=== PATIENT | female | born 1945 | race Caucasian/White ===

== ENCOUNTER → 2016-09-15 | Outpatient (REF) | payer OTHER, MEDICARE ==
[~2016-09-15] MED LIST: ACET1TAB17 PO; ASPI81TA85 PO; ATOR1TAB21 PO; CEFA2INJ IV; ECOT325T7 PO; FERR325T16 PO; FISH100049 PO; FLUZ1INJ IM; FOLI1TAB4 PO; LASI20TA PO; METO1TAB87 PO; MILKSUS5 PO; MULT1TAB18 PO; NORT25CA2 PO; OXYC1TAB23 PO; PHEN-312 PO; PHEN60TA9 PO; PHEN64.8 PO; POTA1TAB14 PO; RANI150C PO; SPIR25TA2 PO; TOPR25TA PO; VITA10006 PO; VITA500046 PO; [UNRECOGNIZED DRUG - CODE] ID
== END ==
LOC: M LAB REF 17:31
PROVIDERS: ATTEND Internal Medicine
DX: R31.21 Asymptomatic microscopic hematuria (principal)

== ENCOUNTER 2016-11-24 14:03 | Inpatient (IN) | payer MEDICARE, OTHER ==
[~2016-11-24] VITALS: Ht 167.6 cm; Wt 82.1 kg
[2016-11-24] MEDS ORDERED: ATOR1TAB21 PO (14:45)
[2016-11-24] MEDS ORDERED: VITA10006 PO (14:45)
[2016-11-24] MEDS ORDERED: VITA500046 PO (14:45)
[2016-11-24] MEDS ORDERED: MULT1TAB18 PO (14:45)
[2016-11-24] MEDS ORDERED: FISH100049 PO (14:45)
[2016-11-24] MEDS ORDERED: ECOT325T7 PO (14:45)
[2016-11-24] MEDS ORDERED: NORT25CA2 PO (14:45)
[2016-11-24] MEDS ORDERED: TOPR25TA PO (14:45)
[2016-11-24] MEDS ORDERED: PHEN64.8 PO (14:45)
[2016-11-24] MEDS ORDERED: ACETAMINOPHEN 325 MG TAB PO ONE (16:45)
[2016-11-24 17:29] LABS: ADD MANUAL DIFFER YES; ALBUMIN 3.1 GM/DL (3.2-5.2); ALBUMIN/GLOBULIN RATIO 0.72 (1.00-1.93); BILIRUBIN,DIRECT 0.1 MG/DL (0.0-0.2); BILIRUBIN,TOTAL 0.4 MG/DL (0.2-1.0); CALCIUM LEVEL 8.1 MG/DL (8.8-10.2); CREATININE FOR GFR 1.23 MG/DL (0.55-1.02); DIFF SLIDE NUMBER 289; MEAN CORPUSCULAR HEMOGLOBIN 32.7 pg (27.0-33.0); MEAN CORPUSCULAR HGB CONC 34.8 g/dl (32.0-36.5); PHENOBARBITAL LEVEL 19.9 UG/ML (15.0-40.0); POTASSIUM SERUM 3.2 MEQ/L (3.5-5.1); RED CELL DISTRIBUTION WIDTH 12.9 % (11.5-14.5); TOTAL PROTEIN 7.4 GM/DL (6.4-8.2); WHITE BLOOD COUNT 8.7 K/mm3 (4.0-10.0)
[2016-11-24 17:30] LABS: PLATELET COUNT, AUTOMATED 74 k/mm3 (150-450)
--- NOTE | 2016-11-24 17:38 | REP ---
Clinical: Fever. Technique: PA and lateral. Comparison: None. Findings: Mediastinum and cardiac silhouette are grossly normal. Lung liu demonstrate chronic-appearing interstitial changes. Superimposed left lower lobe atelectasis/early infiltrate cannot be excluded. No effusion. No pneumothorax. Skeletal structures intact. Impression: Cannot exclude trace left lower lobe atelectasis/early infiltrate. Signed by Constantino Bright MD 11/24/2016 05:30 P
--- NOTE | 2016-11-24 17:41 | REP ---
Clinical: Pain. Technique: AP, lateral, bilateral oblique views of the left wrist. Findings: Degenerative changes involving the first and second carpometacarpal joints. No acute fracture dislocation. No significant swelling. No subcutaneous emphysema or radiodense foreign body. Impression: Degenerative changes at the first and second carpometacarpal joints. Signed by Constantino Bright MD 11/24/2016 05:33 P
[2016-11-24] MEDS ORDERED: POTASSIUM CHLORIDE 10 MEQ SR TABLET PO ONE (17:45)
[2016-11-24 18:05] LABS: BANDS 3 % (< 11)
[2016-11-24 18:12] LABS: ERYTHROCYTE SEDIMENTATION RATE 30 mm/hr (0-30)
--- NOTE | 2016-11-24 18:17 | REP ---
Clinical: Fever. Comparison: Chest CT. Findings: Bibasilar and lingular atelectasis is appreciated along with small focal consolidation with air bronchograms involving the deep medial right lower lobe. No effusion. No pneumothorax. Tracheobronchial tree is patent. Mediastinum suggests mild cardiomegaly without pericardial effusion. Minimal atherosclerotic changes are appreciated. Thoracic aorta without aneurysm. Musculoskeletal structures demonstrate age-related degenerative changes. Limited evaluation of the upper abdomen demonstrates cholelithiasis as well as 9.5 cm left renal cyst. Impression: 1. Bibasilar atelectasis and small right lower lobe consolidation. 2. Chronic pulmonary parenchymal changes and mild cardiomegaly. 3. Upper abdomen demonstrates cholelithiasis and 9.5 cm left renal cyst. Signed by Constantino Bright MD 11/24/2016 06:08 P
[2016-11-24] MEDS ORDERED: NS 1,000 ML IV ONE (18:30)
--- NOTE | 2016-11-24 19:01 | REP ---
Clinical: Elevated liver function tests. Abdominal pain. Transaminitis. Technique: Real time carney scale ultrasound examination using curved array transducer. Findings: The liver is heterogeneous and demonstrates a somewhat mottled "starry jonathan" appearance which may reflect underlying pathology including hepatitis. No focal hepatic lesion identified. The gallbladder demonstrates diffuse cholelithiasis without obvious anterior gallbladder wall thickening or pericholecystic fluid although evaluation is limited due to shadowing. No evidence for extrahepatic biliary ductal dilatation and the common bile duct measures 4.5 mm diameter. The right kidney is normal in reniform shape and measures 10.3 x 3.9 x 5.2 cm with septated, complex upper pole cyst measuring 4.0 x 2.9 x 2.9 cm. No ascites. Impression: 1. Findings suggesting underlying hepatic parenchymal disease requires correlation. No focal hepatic lesion identified. 2. Cholelithiasis without definite evidence for acute cholecystitis. 3. Complex septated right renal cyst. Signed by Constantino Bright MD 11/24/2016 06:53 P
[2016-11-24] MEDS ORDERED: PIPERACILLIN/TAZOBACTAM SOD 3.375 GM in D5W MINI-BAG PLUS 50 ML IV ONE (19:15)
[2016-11-24] MEDS ORDERED: PHEN60TA9 PO (19:26)
[2016-11-24] MEDS: NS 1,000 ML IV SCH (19:43)
--- NOTE | 2016-11-24 20:12 | HPEPDOC ---
General Date of Admission 11/24/2016 at 8:10PM Chief Complaint The patient is a 71-year-old female Presented to the ER with complaints of fever , chills and body aches for 2 days. History of Present Illness Patient is a 71 year old female with a PMHx of AVM in the brain ( Operated on 1991, Stent placement in 2009), Seizure prophylaxis, HTN, DLP, Arthritis and Depression. Patient presented to the ER with complaints of fever, chills and body aches for 2 days. She was in [place] on Sunday when she began to experience the symptoms that morning. She denied any SOB, cough, chest pain, palpitations, nausea, vomiting or abdominal pain at that time. She noted that she had 1 loose stool (non-bloody, non-mucoid) and it had since resolved after taking a single dose of Imodium. She noted that the next day she boarded a flight to get to [place]. She has been experiencing weakness in ambulation and overall fatigue. She was wheeled off the flight. Her family had taken her home and then brought her into the hospital tonight because she was slurring her words and was very sleepy. She denied any recent procedures. Home Medications Scheduled (Ecotrin) 325 Mg Tab, 325 MG PO DAILY, (Reported) Atorvastatin Calcium (Atorvastatin Calcium) 20 Mg Tab, 20 MG PO DAILY, (Reported ) Metoprolol Succinate (Toprol Xl) 25 Mg Tab, 25 MG PO DAILY, (Reported) Nortriptyline HCl (Nortriptyline HCl) 25 Mg Cap, 25 MG PO DAILY, (Reported) Phenobarbital (Phenobarbital) 60 Mg Tab, 120 MG PO DAILY, (Reported) Allergies Coded Allergies: No Known Allergies (Unverified , 11/24/16) Past Medical History Medical History AVM in the brain (Operated on 1991, Stent placement in 2009), Seizure prophylaxis, HTN, DLP, Arthritis and Depression Surgical History 1991 AVM surgery 2009 Stent placement in R MCA of brain <5 years ago - Neck surgery for removal of possible cyst? 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 [employer] Review of Symptoms Other systems 10 point review of systems complete; negative otherwise stated in HPI Vital Signs - Vitals: BP 122/62, HR 95, RR 18, Sat 95%RA, Temp 98.8F - General: Lying in bed, No acute distress, Sleepy, AAOx3 - HEENT: NC, AT, PERRLA, EOMI - CVS: RRR, +S1S2, Possible systolic murmur - Lungs: Fair air entry bilaterally, + Crackles at right lung base - Abdomen: Soft, Non-distended, Non-tender, Hyperactive bowel sounds - Extremities: No lower extremity edema, No calf tenderness - Neuro: No focal motor or sensory deficit - Joint: Decreased ROM of L wrist and L knee 2/2 pain - Skin: No visible rashes Laboratory Data Labs 24H Laboratory Tests 2 11/24/16 16:09: Neutrophils 84H, Band Neutrophils 3, Lymphocytes (Manual) 8L, Monocytes (Manual ) 3, Atypical Lymphocytes 2, Platelet Estimate DECREASED, Red Blood Cell Morphology NORMAL, Erythrocyte Sedimentation Rate 30, Anion Gap 11, Glomerular Filtration Rate 46.0, Lactic Acid Level 1.8, Calcium Level 8.1L, Aspartate Amino Transf (AST/SGOT) 371H, Alanine Aminotransferase (ALT/SGPT) 212H, Alkaline Phosphatase 86, Total Bilirubin 0.4, Direct Bilirubin 0.1, C-Reactive Protein, Quantitative 23.20H, Total Protein 7.4, Albumin 3.1L, Albumin/Globulin Ratio 0.72L, Phenobarbital Level 19.9 11/24/16 16:54: Urine Appearance HAZY, Urine Color YELLOW, Urine pH 5.0, Urine Specific Letcher 1.017, Urine Protein 2+H, Urine Glucose (UA) NEGATIVE, Urine Ketones TRACEH, Urine Urobilinogen 0.2, Urine Bilirubin NEGATIVE, Urine Leukocyte Esterase NEGATIVE, Urine Blood 3+H, Urine Nitrite NEGATIVE, Urine WBC (Auto) 5H, Urine RBC (Auto) 3, Urine Hyaline Casts (Auto) 0, Urine Bacteria (Auto) 1+H, Urine Squamous Epithelial Cells 0, Urine Amorphous Sediment MODERATEH, Urine Mucus ( Auto) SMALL, Urine Sperm (Auto) CBC/BMP Laboratory Tests 11/24/16 16:09 Red Blood Count 4.74, Mean Corpuscular Volume 94.0, Mean Corpuscular Hemoglobin 32.7, Mean Corpuscular Hemoglobin Concent 34.8, Red Cell Distribution Width 12.9 Microbiology Microbiology 11/24/16 Blood Culture, Received Pending 11/24/16 Blood Culture, Received Pending 11/24/16 Influenza Virus Type A Antigen - Final, Complete 11/24/16 Influenza Virus Type B Antigen - Final, Complete 11/24/16 Urine Culture, Received Pending Plan / VTE VTE Prophylaxis Ordered?: Yes Plan Plan Fever / Chills likely 2/2 infection, source unclear; possibly pneumonia (CAP), possible joint infection (right knee vs. left wrist), possible hepatitis - Presented with fever, chills, fatigue, sleepiness, and joint pain / body aches - Physical reveals right lower lung field with crackles - No leukocytosis, No lactic acidosis - Elevation in liver enzymes (AST / ALT) - UA without definitive infection - CT Chest: bibasilar atelectasis, small RLL consolidation, cholelithiasis, 9.5cm left renal cyst - US Gallbladder: hepatic parenchymal disease, cholelithiasis, no acute cholecystitis, complex R renal cyst - Wrist XR: degenerative changes in 1st and 2nd CMC joint - Will f/u Blood cultures, Urine cultures, Hepatitis Panel - Will cover with broad spectrum antibiotics with Vancomycin and Zosyn - c/w IV fluid hydration with NS Transaminitis - Possibly 2/2 hepatitis - AST : ALT ratio of 1:1 - No abnormalities in Bilirubin or Alkaline phosphatase to indicate biliary pathology - US noted above - f/u Hepatitis panel Hyponatremia; likely hypotonic, hypovolemic - Possibly 2/2 dehydration - c/w IV fluid hydration for now Elevated Cr - Baseline unclear, no prior records - Will check urine osmolality and urine electrolytes - c/w IV fluid hydration Thrombocytopenia possibly 2/2 hepatitis - no evidence of bleeding at this time - will continue to monitor platelet count AVM in the brain - s/p Surgery on 1991 - s/p stent placement in 2009) - Currently on seizure prophylaxis; c/w Phenobarbital - c/w ASA HTN - Will hold metoprolol for now - Will likely need to restart within 24 hours DLP - c/w Atorvastatin Arthritis - c/w Tylenol PRN Depression - c/w Nortriptyline Gastrointestinal prophylaxis - Will start Protonix PO DVT prophylaxis - Will start SCDs (re: Thrombocytopenia) ERLINDA MCCLAIN MD Nov 24, 2016 20:12
[2016-11-24 21:00] LABS: OSMOLALITY SERUM 267 MOSM/KG (280-301)
[2016-11-24] MEDS ORDERED: VANCOMYCIN HCL 1,000 MG, VIAL MATE ADAPTER 1 EACH in D5W 250 ML IV ONE (21:00)
[2016-11-25] MEDS: PANTOPRAZOLE 40MG TAB (PROTONIX) PO SCH ×2 (02:01→20:37)
[2016-11-25] MEDS: PHENobarbital 30 MG TAB PO SCH ×2 (02:01→20:37)
[2016-11-25] MEDS: ASPIRIN ENTERIC 325 MG TAB PO SCH ×2 (02:02→21:51)
[2016-11-25] MEDS: ATORVASTATIN 20 MG TAB PO SCH ×2 (02:02→20:38)
[2016-11-25] MEDS: NORTRIPTYLINE 25 MG CAP PO SCH ×2 (02:02→21:51)
[2016-11-25 02:13] VITALS: BP 132/62
[2016-11-25] MEDS: ACETAMINOPHEN TAB 650MG DOSE (2X325MG) PO PRN (02:18)
[2016-11-25] MEDS ORDERED: METOPROLOL SUCC *XL* 25MG TAB (TopROL *XL*) PO ONE (02:30)
[2016-11-25 04:00] VITALS: BP 118/58
[2016-11-25] MEDS: PIPERACILLIN/TAZOBACTAM SOD 3.375 GM in D5W MINI-BAG PLUS 50 ML IV SCH ×3 (04:15→20:36)
[2016-11-25 07:15] LABS: BASO % 0.3 % (0.0-1.0); EOS % 0.3 % (0.0-3.0); LARGE UNSTAINED CELL # 0.2 K/mm3 (0.0-0.4); LARGE UNSTAINED CELL % 3.2 % (0.0-4.0); LYMPH # 0.4 K/mm3 (1.5-4.5); LYMPH % 6.1 % (24.0-44.0); MEAN CORPUSCULAR HGB CONC 35.5 g/dl (32.0-36.5); MEAN CORPUSCULAR VOLUME 93.1 fl (80.0-96.0); MONO # 0.3 K/mm3 (0.0-0.8); MONO % 4.3 % (0.0-5.0); NEUTROPHILS # 5.1 K/mm3 (1.8-7.7); RED CELL DISTRIBUTION WIDTH 12.6 % (11.5-14.5)
[2016-11-25 07:25] LABS: ALBUMIN 2.4 GM/DL (3.2-5.2); ALBUMIN/GLOBULIN RATIO 0.71 (1.00-1.93); BILIRUBIN,TOTAL 0.5 MG/DL (0.2-1.0); CALCIUM LEVEL 7.4 MG/DL (8.8-10.2); CREATININE FOR GFR 1.3 MG/DL (0.55-1.02); GLOMERULAR FILTRATION RATE 43.1 (>39); MAGNESIUM LEVEL 2.3 MG/DL (1.8-2.4); POTASSIUM SERUM 3.3 MEQ/L (3.5-5.1); TOTAL PROTEIN 5.8 GM/DL (6.4-8.2)
[2016-11-25 07:29] LABS: PLATELET COUNT, AUTOMATED 51 k/mm3 (150-450)
[2016-11-25 08:00] VITALS: BP 106/56
[2016-11-25] MEDS: NS 1,000 ML IV SCH ×2 (08:13→22:51)
[2016-11-25] MEDS: VANCOMYCIN HCL 750 MG, VIAL MATE ADAPTER 1 EACH in D5W 250 ML IV SCH ×2 (09:20→21:50)
--- NOTE | 2016-11-25 10:31 | PHACANCOPD ---
PHARMACY VANCOMYCIN DOSING Pt Demographics Demographics Patient Age:71 , Weight:77.900 , Gender: female Adjusted Body Weight Date: 11/25/16, Adjusted Body Weight: [NA] Kg Events Past 24 Hours Events Past 24 Hours: YES: Fever, NO: Dialysis, Diuretic Therapy, Change in CrCl, Elevation in WBC, Pending Diagnostics, Pending Procedures, Other Vancomycin Vancomycin indication: MRSA coverage Vancomycin Target Ranges: 15-20 mcg/ml Vancomycin Load Y/N: Yes Load Dose Date Time Vancomycin Load Dose: 1000mg Date: 11/24 Time: 23:00 Vancomycin Dose Date: 11/25/16. Current Vancomycin Dose: [750mg IV q12h @09] Intermittent Dosing?: No Labs Labs Item Value Date Time White Blood Count 8.7 K/mm3 11/24/16 1609 White Blood Count 6.0 K/mm3 11/25/16 0635 Band Neutrophils 3 % 11/24/16 1609 Creatinine 1.23 MG/DL H 11/24/16 1609 Creatinine 1.30 MG/DL H 11/25/16 0635 C-Reactive Protein, Quantitative 23.20 MG/DL H 11/24/16 1609 Vital Signs Label Value Date Time Patient Temperature 100.9 degrees F 11/25/16 0213 Temperature Source Temporal 11/25/16 0213 Patient Temperature 101.0 degrees F 11/24/16 1820 Temperature Source Oral 11/24/16 1820 Micro Microbiology 11/24/16 Blood Culture, Received Pending 11/24/16 Blood Culture - Preliminary, Resulted 11/25/16 Gastrointestinal Tract Panel (PCR) - Final, Complete 11/25/16 Stool Occult Blood (MAEVE) - Final, Complete 11/24/16 Influenza Virus Type A Antigen - Final, Complete 11/24/16 Influenza Virus Type B Antigen - Final, Complete 11/24/16 Urine Culture, Received Pending Creatinine Clearance Date:11/25/16. Creatinine Clearance: [40 ml/min]. Pending Labs Vanco trough scheduled 11/25 @08:00 before 4th dose Assessment and Plan Maintaining Current Dose?: No Reason for dose change: No Dose Change Pharmacist Note Pharmacist Note Date: 11/25/16. Pharmacist note: pt was admitted for fever/chills, unknown source of infection, possible CAP for which she was started on Zosyn and Vancomycin. Pt has no medical hx at our facility. I started her on vancomycin 1g last night to be followed with 750mg IV q12h this morning. Blood cultures 1/2 preliminary positive for G+ cocci in clusters. I have a trough scheduled before the 4th dose tomorrow morning. Piotr Alejandro.D. Nov 25, 2016 10:30
[2016-11-25 14:00] VITALS: BP 116/59
--- NOTE | 2016-11-25 18:58 | IPN ---
DATE: 11/25/2016 SUBJECTIVE: The patient is seen and examined in the room today. The patient stated that she has been having fever and chills with body aches for several days. Since admission, has resolved. The patient denies any recent sick contacts. The patient does complain about one loose stool prior to current hospitalization. Since admission, the patient also has some loose stool after the initiation of the antibiotic; however, the patient feels her symptoms are improving. OBJECTIVE: VITAL SIGNS: Temperature is 98.2, pulse is 84, respiratory rate 18, blood pressure 106/56, pulse oximetry is 95% on room air. GENERAL: No sign of acute distress. Alert and oriented times three. HEENT: Normocephalic, atraumatic. Extraocular muscles intact. CARDIOVASCULAR: Positive S1, S2. Regular rate. LUNGS: Some diminished breath sounds in the lower base. Positive fine crackles in the right lung base, otherwise I cannot appreciate any significant wheezes. ABDOMEN: Soft, nontender, nondistended. Bowel sounds present. EXTREMITIES: No edema. No sign of cyanosis. LABORATORY DATA: WBC is 6, hemoglobin is 13.1, hematocrit 37, platelet count is 51. Sodium is 130, potassium is 3.3, chloride is 97, carbon dioxide 23, BUN 20, creatinine 1.3, GFR is 43.1, fasting glucose is 137, calcium is 7.4, magnesium 2.3, total bilirubin 0.5, AST 333, ALT is 216, alkaline phosphatase is 76, total protein 5.8. ASSESSMENT AND PLAN: 1. Fever, chills with generalized body aches. CT imaging of the chest suggests that there is a small right lower lobe consolidation. Influenza is negative. Followup with respiratory panel. Currently, the patient is on vancomycin and Zosyn. Her general presentation may also suggest acute viral symptoms with elevated transaminitis. Hepatitis panel has been ordered. Results pending at this moment. 2. Transaminitis. Will try to rule out acute viral hepatitis. The patient is on atorvastatin therapy. 3. History of AV malformation in the brain, status post surgical repair in 1991 and stent placement for aneurysm in 2009. The patient is currently on phenobarbital for seizure prophylaxis. Continue aspirin. 4. Hypertension. Blood pressure medication has been on hold and the patient's blood pressure has been in the satisfactory range. We will continue to monitor. 5. Dyslipidemia. On atorvastatin. 6. Depression. On nortriptyline. 7. Deep vein thrombosis (DVT) prophylaxis. On thromboembolic compression stockings (TEDS) and sequential compression device (SCD).
[2016-11-25 22:00] VITALS: BP 124/67
[2016-11-26] MEDS: PIPERACILLIN/TAZOBACTAM SOD 3.375 GM in D5W MINI-BAG PLUS 50 ML IV SCH (04:00)
[2016-11-26 06:00] VITALS: BP 135/68
[2016-11-26 07:08] LABS: BASO % 0.1 % (0.0-1.0); EOS % 0.2 % (0.0-3.0); LARGE UNSTAINED CELL # 0.3 K/mm3 (0.0-0.4); LARGE UNSTAINED CELL % 4.1 % (0.0-4.0); LYMPH # 0.5 K/mm3 (1.5-4.5); LYMPH % 7.7 % (24.0-44.0); MEAN CORPUSCULAR HEMOGLOBIN 32.9 pg (27.0-33.0); MEAN CORPUSCULAR HGB CONC 34.8 g/dl (32.0-36.5); MEAN CORPUSCULAR VOLUME 94.5 fl (80.0-96.0); MONO # 0.3 K/mm3 (0.0-0.8); MONO % 5.5 % (0.0-5.0); NEUTROPHILS % 82.4 % (36.0-66.0); RED CELL DISTRIBUTION WIDTH 12.9 % (11.5-14.5); WHITE BLOOD COUNT 6.1 K/mm3 (4.0-10.0)
[2016-11-26 07:09] LABS: PLATELET COUNT, AUTOMATED 54 k/mm3 (150-450)
[2016-11-26 07:18] LABS: ALBUMIN/GLOBULIN RATIO 0.56 (1.00-1.93); BILIRUBIN,TOTAL 0.4 MG/DL (0.2-1.0); CALCIUM LEVEL 7.5 MG/DL (8.8-10.2); CREATININE FOR GFR 1.57 MG/DL (0.55-1.02); GLOMERULAR FILTRATION RATE 34.7 (>39); MAGNESIUM LEVEL 2.3 MG/DL (1.8-2.4); POTASSIUM SERUM 3.1 MEQ/L (3.5-5.1); TOTAL PROTEIN 5.6 GM/DL (6.4-8.2)
[2016-11-26] MEDS ORDERED: POTASSIUM CHLORIDE 10 MEQ SR TABLET PO ONE (08:00)
[2016-11-26] MEDS: NS 1,000 ML IV SCH ×2 (09:13→19:54)
[2016-11-26] MEDS: VANCOMYCIN HCL 750 MG, VIAL MATE ADAPTER 1 EACH in D5W 250 ML IV SCH ×2 (10:32→19:52)
[2016-11-26] MEDS: LACTOBACILLUS ACIDOPHILUS CAP (BACID) PO SCH ×3 (10:32→17:36)
[2016-11-26] MEDS: CALCIUM CARBONATE 500 MG CHEW U/D PO PRN (10:33)
[2016-11-26 11:04] LABS: OSMOLALITY URINE 240 MOSM/KG (500-800)
[2016-11-26 11:26] LABS: CALCIUM OXALATE CRYSTALS SMALL
--- NOTE | 2016-11-26 11:51 | REP ---
Acute renal insufficiency. Technique: Real time carney scale evaluation using curved array transducer. Findings: The right kidney is normal in reniform shape and echogenicity without hydronephrosis or nephrolithiasis and measures 11.9 x 5.8 x 4.4 cm and includes a 5.5 x 3.1 x 3.8 cm septated upper pole cyst as well as suggestions for duplication of the collecting system. No perinephric fluid collection identified. The left kidney measures 13.4 x 10.3 x 5.4 cm and is dominated by an 11.2 x 7.2 x 9.4 cm cyst with only minimal residual renal parenchyma identified by ultrasound. No definite hydronephrosis, nephrolithiasis or renal mass otherwise appreciated. Bladder is grossly unremarkable and measures approximately 11.4 x 10.7 x 9.6 cm. Impression: 1. Bilateral renal cysts as described above. No evidence for hydronephrosis. Incomplete evaluation of the left renal parenchyma due to large cyst and technical factors. If necessary pre and postcontrast CT of the abdomen/pelvis should be considered for further detailed evaluation of the urinary tract system. Signed by Constantino Bright MD 11/26/2016 11:41 A
[2016-11-26 14:00] VITALS: BP 134/68
--- NOTE | 2016-11-26 18:11 | IPN ---
DATE: 11/26/2016 SUBJECTIVE: The patient is seen and examined in the room today. The patient stated that she is still not feeling well. During the night, the patient had a temperature of 99.3, there is no recurrent temperature greater than 100.4. The fever only occurred on the date of admission. OBJECTIVE: VITAL SIGNS: Temperature is 97.3, pulse is 87, respiratory rate 18, blood pressure 135/68, pulse oximetry is 93% on room air. GENERAL: Fatigued. No sign of acute distress. Alert and oriented times three. HEENT: Normocephalic, atraumatic. Extraocular muscles grossly intact. CARDIOVASCULAR: Positive S1, S2. Positive systolic murmur. Regular rate. LUNGS: Diminished breath sounds in the right lower lobe. Positive fine crackles in the right lower lobe. No significant wheezes. ABDOMEN: Soft, nontender, nondistended. Bowel sounds present. EXTREMITIES: No edema. No sign of cyanosis. LABORATORY DATA: WBC is 6.1, hemoglobin is 12.85, hematocrit 36, platelet count is 54. Sodium is 130, potassium is 3.1, chloride is 98, carbon dioxide 20, BUN is 23, creatinine 1.57, GFR is 34.7, fasting glucose is 116, calcium is 7.5, magnesium 2.3, total bilirubin 0.4, AST 219, ALT is 175, alkaline phosphatase is 91, C-reactive protein is 21.2. BNP is 1220, total protein 5.6, albumin 2. ASSESSMENT AND PLAN: 1. Acute kidney injury. The patient has been on IV fluids since admission. The patient's medications were reviewed. The patient had not started any new medication prior to the admission. The new medication since admission is vancomycin and Zosyn. The patient did not receive any contrast agent for the imaging studies. We did perform the workup for acute kidney injury and nephrology has been consulted on the case. We appreciate nephrology assistance. 2. Fever, chills and generalized body aches. CT of the chest suggests small right lower lobe consolidation. Respiratory panel is negative. Gastrointestinal panel is negative. The patient has Staphylococcus aureus positive on two sets of blood cultures on 11/24/2016. We do not have a source for the patient's bacteremia. The patient had a cardiac echogram performed today. We will follow with the results. The patient was also noted to have a 9.5 cm left renal cyst. The patient also had a renal ultrasound performed. 3. Staphylococcus aureus bacteremia. The patient is on vancomycin. We will follow with cardiac echo report. 4. Transaminitis. Will try to rule out acute viral hepatitis. Hepatitis panel is pending. 5. Hypertension. Blood pressure medication has been on hold and the patient's blood pressure has been in the satisfactory range. 6. 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 The patient also had a stent placement in 2009. The patient is currently on phenobarbital for seizure prophylaxis. Continue aspirin. 7. Dyslipidemia. On atorvastatin. 8. Depression. On nortriptyline. 9. Deep vein thrombosis (DVT) prophylaxis. On thromboembolic compression stockings (TEDS) and sequential compression device (SCD).
[2016-11-26] MEDS: PHENobarbital 30 MG TAB PO SCH (19:53)
[2016-11-26] MEDS: NORTRIPTYLINE 25 MG CAP PO SCH (19:53)
[2016-11-26] MEDS: ATORVASTATIN 20 MG TAB PO SCH (19:53)
[2016-11-26] MEDS: PANTOPRAZOLE 40MG TAB (PROTONIX) PO SCH (19:53)
[2016-11-26] MEDS: ASPIRIN ENTERIC 325 MG TAB PO SCH (19:53)
[2016-11-26] MEDS: ACETAMINOPHEN TAB 650MG DOSE (2X325MG) PO PRN (19:53)
[2016-11-26 22:00] VITALS: BP 132/68
[2016-11-27 06:00] VITALS: BP 156/74
[2016-11-27 07:12] LABS: BASO % 0.1 % (0.0-1.0); EOS # 0.1 K/mm3 (0.0-0.50); EOS % 1.4 % (0.0-3.0); LARGE UNSTAINED CELL # 0.2 K/mm3 (0.0-0.4); LARGE UNSTAINED CELL % 3.1 % (0.0-4.0); LYMPH # 0.6 K/mm3 (1.5-4.5); LYMPH % 9.5 % (24.0-44.0); MEAN CORPUSCULAR HEMOGLOBIN 33.1 pg (27.0-33.0); MEAN CORPUSCULAR HGB CONC 34.6 g/dl (32.0-36.5); MEAN CORPUSCULAR VOLUME 95.5 fl (80.0-96.0); MONO # 0.5 K/mm3 (0.0-0.8); MONO % 7.2 % (0.0-5.0); NEUTROPHILS # 5.3 K/mm3 (1.8-7.7); NEUTROPHILS % 78.6 % (36.0-66.0); RED CELL DISTRIBUTION WIDTH 13.2 % (11.5-14.5); WHITE BLOOD COUNT 6.7 K/mm3 (4.0-10.0)
[2016-11-27 07:13] LABS: PLATELET COUNT, AUTOMATED 57 k/mm3 (150-450)
[2016-11-27 07:21] LABS: ALBUMIN 1.8 GM/DL (3.2-5.2); ALBUMIN/GLOBULIN RATIO 0.49 (1.00-1.93); BILIRUBIN,TOTAL 0.3 MG/DL (0.2-1.0); CALCIUM LEVEL 7.9 MG/DL (8.8-10.2); CREATININE FOR GFR 1.47 MG/DL (0.55-1.02); GLOMERULAR FILTRATION RATE 37.4 (>39); MAGNESIUM LEVEL 2.4 MG/DL (1.8-2.4); POTASSIUM SERUM 3.3 MEQ/L (3.5-5.1); TOTAL PROTEIN 5.5 GM/DL (6.4-8.2)
--- NOTE | 2016-11-27 07:33 | ECHO ---
DATE OF PROCEDURE: 11/26/2016 HEIGHT: 66 inches. WEIGHT: 171 pounds. BODY SURFACE AREA: 1.87 meters squared. REFERRING PHYSICIAN: Dr. Qureshi. INDICATION: Heart murmur. Gram-positive septicemia (Staphylococcus aureus). MEASUREMENTS: 2D Measurements: RV - 3.4 cm LV - 4.2 cm Septum - 1.6 cm Posterior wall - 1.3 cm Aortic root - 3.5 cm LA - 4.8 cm LVEF - 65% Doppler Measurements: AV - 5.3 meters per second MV-E - 145, A - 151, E/A ratio 0.9 Early mitral deceleration time - 269 milliseconds E prime - 4.7, A prime -6, E/E prime ratio 29 PV - 1.1 meters per second Pulmonary artery acceleration time - 92 milliseconds RVSP - 38 mmHg IVC - 1.9 cm COMMENTS: Normal sinus rhythm with intraventricular conduction disturbance. Moderately dilated left atrium but normal left ventricular size. Right heart chamber sizes were also normal. Asymmetrical septal hypertrophy. On real-time imaging from the parasternal and projections. The septum appeared to move normally but other walker were hyperkinetic. Mildly thickened mitral annulus but normal appearing leaflet thickness and excursion with anterior systolic motion of the anterior leaflet of the mitral valve into the LV outflow tract. No posterior systolic buckling. Three equal size aortic cusps with marginally thickened cusp edges but adequate cusp separation. Normal aortic root size. No apparent intracardiac mass or pericardial effusion. Color flow Doppler study taken from the parasternal and projection showed no aortic, mild mitral and mild tricuspid insufficiency. Guided continuous wave Doppler of her LV outflow tract showed a severe obstruction that appeared to be subvalvular as demonstrated by turbulence in the LV outflow tract itself prior to the aortic valve. This would be consistent with subaortic stenosis of a serious degree. Pulsed and continuous wave Doppler of her LV outflow tract showed normal peak diastolic filling velocities against mitral stenosis. There is a slightly more prominent late diastolic/atrial dependent filling pattern. Her early mitral deceleration time was prolonged and there was tissue Doppler evidence of further LV diastolic dysfunction. Estimated mean left atrial pressure was elevated. Pulsed and continuous wave Doppler of her pulmonary trunk showed a normal peak systolic velocity against RV outflow tract obstruction. Her pulmonary artery acceleration time was abbreviated consistent with at least mildly elevated pulmonary vascular resistance. Guided continuous wave Doppler of her tricuspid valve allowed our further estimation of her right ventricular systolic pressure (at least mildly increased). Her inferior vena cava was of normal size with normal respiratory collapse against an elevated central venous pressure. CONCLUSIONS: Unable to detect any clear pedunculated vegetation with her reported Staphylococcus aureus bacteremia. 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 Moderate left atrial enlargement with Doppler evidence of an impairment of LV diastolic function and elevated mean left atrial pressure. Normal right heart chamber sizes and wall motion with Doppler evidence of least mild pulmonary hypertension. Normal IVC size and collapse against an elevated central venous pressure. Subtle aortic valvular sclerosis without valvular stenosis or insufficiency. Mild mitral annular thickening but no LV inflow tract obstruction but mild mitral insufficiency believed to be related to her subaortic valvular stenosis and anterior systolic motion of her anterior leaflet.
[2016-11-27] MEDS: ACETAMINOPHEN TAB 650MG DOSE (2X325MG) PO PRN ×2 (09:38→19:57)
[2016-11-27] MEDS: LACTOBACILLUS ACIDOPHILUS CAP (BACID) PO SCH ×3 (09:38→17:37)
[2016-11-27] MEDS: NS 1,000 ML IV SCH ×2 (09:39→19:56)
[2016-11-27] MEDS: VANCOMYCIN HCL 750 MG, VIAL MATE ADAPTER 1 EACH in D5W 250 ML IV SCH (09:39)
[2016-11-27 10:00] VITALS: BP 134/71
[2016-11-27] MEDS ORDERED: POTASSIUM CHLORIDE 10 MEQ SR TABLET PO ONE ×2 (10:00→20:45)
--- NOTE | 2016-11-27 13:29 | ECGEPIP ---
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 Borderline first-degree AV block. Left ventricular hypertrophy with strain pattern No prior tracing Electronically Signed On 11-27-2016 13:28:51 EDT by Narinder Burt
[2016-11-27 14:00] VITALS: BP 140/69
--- NOTE | 2016-11-27 16:02 | IPN ---
DATE OF SERVICE: 11/27/2016 SUBJECTIVE: The patient is seen and examined in the room today. The patient stated that she is feeling better compared to yesterday, but the patient is still in extreme discomfort. The patient yesterday 8 p.m., the patient had a temperature of 100.4. No recurrence since this morning. OBJECTIVE: VITAL SIGNS: Temperature is 98.1, pulse is 80, respiration 18, blood pressure 156/74, pulse oximetry 94% in room air. GENERAL: No sign of acute distress. Alert and oriented times three. HEENT: Normocephalic, atraumatic. Extraocular motor grossly intact. CARDIOVASCULAR: Positive S1, S2. Positive systolic murmur. Regular rate. LUNGS: Decreased breath sounds and there is a fine crackle in right lower lobe. No wheezes. ABDOMEN: Soft, nontender, nondistended. Bowel sounds present. EXTREMITIES: There is some redness and swelling of the left medial elbow and no significant lower extremity swelling. No cyanosis. LABORATORY DATA: WBC is 6.7, hemoglobin 14.5, hematocrit 41.8, platelet count is 57. Sodium is 132, potassium is 3.3, chloride is 102, carbon dioxide 21, BUN 19, creatinine 1.47, GFR is 37.4, fasting glucose 103, calcium is 7.9, magnesium 2.4, total bilirubin 0.3, AST 126, ALT is 136, alkaline phosphatase is 129, C-reactive protein is 19.9, total protein 5.5, albumin 1.8. ASSESSMENT AND PLAN: 1. Staphylococcus aureus bacteremia. The sensitivity results just came back today and is sensitive to oxacillin. The patient switched to nafcillin, and vancomycin has been discontinued. The patient did have a right lower lobe pneumonia. Cardio echogram was performed and read by Dr. Burt. I did have a chance to talk to Dr. Burt about the case. He did not see any pedunculated vegetation. At this moment, infectious disease service not available. 2. Right lower lobe pneumonia confirmed by the CT of the chest. We suspect that there may be the cause for the patient's bacteremia. The patient has been on the antibiotic. Will continue to trend C-reactive protein. 3. Acute kidney injury. Since admission, the patient have continued decrease of renal function. Nephrology has been consulted, and yesterday the patient had a Rocha catheter insertion after bladder scan. More than 600 mL of urine was drained. This morning, the patient's renal function started to improve. Renal ultrasound showed the patient has 9.4 cm cyst, and a CT may be needed. However, currently, the patient has impaired renal function. Will continue to observe the patient. If the patient needs a CT abdomen and pelvis, then we can pursue the workup later. At this moment, we will let the kidney to recover. 4. Transaminitis due to the patient's current acute illnesses hepatitis panel came back negative. 5. Hypertension. Blood pressure medication has been on hold. The patient's blood pressure is still in the satisfactory range. 6. 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 The patient also had a stent placement in 2009. The patient is currently on phenobarbital for seizure prophylaxis. Continue aspirin. 7. Hypertrophic aortic stenosis of severe degree. I will request the record of the cardiology in [place]. Once the patient is more medically stable, the patient may possibly benefit from the beta ester per Dr. Burt' recommendation. 8. Dyslipidemia. On atorvastatin. 9. Depression. On nortriptyline. 10. Deep vein thrombosis (DVT) prophylaxis. The patient on thromboembolic deterrents (TEDs) and sequential compression device.
[2016-11-27] MEDS: NAFCILLIN SOD 2 GM in D5W MINI-BAG PLUS 100 ML IV SCH ×2 (16:08→19:56)
[2016-11-27] MEDS: PHENobarbital 30 MG TAB PO SCH (19:56)
[2016-11-27] MEDS: NORTRIPTYLINE 25 MG CAP PO SCH (19:57)
[2016-11-27] MEDS: ASPIRIN ENTERIC 325 MG TAB PO SCH (19:57)
[2016-11-27] MEDS: ATORVASTATIN 20 MG TAB PO SCH (19:57)
[2016-11-27] MEDS: PANTOPRAZOLE 40MG TAB (PROTONIX) PO SCH (19:58)
--- NOTE | 2016-11-27 20:10 | CR ---
DATE OF CONSULTATION: 11/26/2016 REQUESTING PHYSICIAN: Dr. Martha Qureshi. REASON FOR CONSULTATION: Management of acute kidney injury. CHIEF COMPLAINT: Patient presented to the hospital on 11/24/2016, with fever, chills, rigors and body aches and pains. HISTORY OF PRESENT ILLNESS: Osmar Shaver is a 71-year-old female with past medical history of arteriovenous malformation (AVM) and cerebral aneurysm operated in the past, history of hypertension, arthritis and depression. She presented to the hospital on 11/24/2016, complaining of fever, chills, rigors. She also complained of having nonbloody loose stools when she presented to the hospital. She was found to have right lower lobe consolidation on initial evaluation. She was started on empiric antibiotic coverage. Later on, she was found to have Staphylococcus aureus bacteremia on her initial blood cultures sent on arrival. The patient's creatinine on admission was 1.2. It has gone up to 1.57 today. Nephrology service was called for further help in the management of this patient. Moreover, the patient is mildly hyponatremic with a sodium of 130. When I saw the patient today at the bedside, the patient reported she was feeling very weak and tired. She was unable to move out of bed. She was complaining of pain in the abdomen and pain in whole left side of the body. She was getting intravenous (IV) fluid hydration at this time. PAST MEDICAL HISTORY: The patient has a past medical history of hypertension, hyperlipidemia, history of arthritis and depression. PAST SURGICAL HISTORY: The patient had surgery for AVM in the brain in 1991, and cerebral aneurysm in 2009. The patient also had neck surgery for removal of a cyst about five years ago. ALLERGIES: No known drug allergies. FAMILY HISTORY: No significant family history of end-stage renal disease requiring hemodialysis. SOCIAL HISTORY: The patient denies any illicit drug abuse, alcohol abuse or smoking. The patient was recently in [place], and she visited a hospital over there in [place]. REVIEW OF SYSTEMS: CONSTITUTIONAL: The patient reports feeling very weak, tired, fatigued. EYES: She denies any blurry vision or double vision. ENT: She denies any dysphagia, odynophagia, or ear discharge. CARDIOVASCULAR: She denies any chest pain. She denies any lower extremity edema. RESPIRATORY: The patient denies any cough, wheezing, but she does that she was found to have right lower lobe pneumonia. GASTROINTESTINAL (GI): The patient reports nausea. She reports decreased appetite and generalized body aches and pains. GENITOURINARY: She denies any dysuria, hematuria. MUSCULOSKELETAL: The patient reports generalized body aches and pains and weakness. SKIN: She denies any rashes or ulcers. ENDOCRINE: The patient denies any history of hypothyroidism, hyperthyroidism, or diabetes. PSYCHIATRIC: The patient reports history of depression. HEMATOLOGIC/ONCOLOGIC: The patient reports no easy bruising or bleeding tendency. All other review of systems is negative. OBJECTIVE: VITAL SIGNS: Temperature is 98.4 degrees Fahrenheit, blood pressure is 134/68, pulse is 82, respiratory rate of 16, saturating 94% on room air. INTAKE AND OUTPUT: Urine output recorded as 200 mL yesterday. Weight in the bed scale is 78.1 kg. PHYSICAL EXAMINATION: GENERAL: The patient is awake, alert, and oriented times three, lying in bed, very weak and tired at this time. HEAD/NECK: Extraocular muscles intact. Pupils equal, round, and reactive to light. Mucous membranes are moist. Neck is supple. There is no jugular venous distention (JVD). CARDIOVASCULAR: S1, S2. Regular rate. No murmur, rub, or gallop. RESPIRATORY: Decreased breath sounds at the bases. The patient was unable to sit up for me for the physical exam. There are very mild crepitations at the bases bilaterally. ABDOMEN: Soft. There is mild tenderness to deep palpation all over the abdomen, especially on the left side, and I could not check the costovertebral angle tenderness because the patient was unable to get up. The patient had her bladder palpable in the suprapubic region. I got a bedside bladder scan done that showed more than 500 mL of residual in the bladder. MUSCULOSKELETAL: There is no clubbing or cyanosis. No edema of the extremities. Pulses are 2+. Patient has erythema on the medial aspect of the left arm. PSYCHIATRIC: Normal mood and affect. SKIN: No rashes except the erythema on the medial aspect of the left upper arm. LABORATORY DATA: CBC showed WBC of 6.1, hemoglobin 12.5, platelets of 54. Urinalysis done today showed 2+ blood, 1+ protein, three WBC, no bacteria. Urine random osmolarity was 240. Random creatinine was 57.8. Random sodium was less than 10. BMP showed sodium 130, potassium 3.1, chloride 98, bicarbonate 20, BUN 23, creatinine 1.5, glucose 116. Osmolarity 263, calcium 7.5, magnesium 2.3. AST 219, ALT 175. C-reactive protein 21.2, BNP 1220. Albumin is two. Hepatitis B and C serology is pending. Vancomycin level is 14.7. MICROBIOLOGY: Blood cultures sent on 11/24/2016, are positive for Staphylococcus aureus. IMAGING: A renal ultrasound done today morning showed left kidney had a large 11.2 cm cyst, and minimal residual renal parenchyma. Right kidney measured 11.9 cm in length and it has a 5.5 cm septated upper pole cyst. CT scan of the chest done on 11/24 showed bibasilar atelectasis and small right lower lobe consolidation. CURRENT INPATIENT MEDICATIONS: The patient's medications are all reviewed by me. The patient is currently on normal saline at 100 mL an hour. She was initially on Zosyn which was stopped today morning. She continues to be on vancomycin 750 mg IV every 12 hours. She is on: - aspirin 325 mg daily - Lipitor 20 mg daily - TUMS 1000 mg twice a day - nortriptyline 25 mg daily - Protonix 40 mg daily - phenobarbital 120 mg by mouth daily - potassium chloride 40 mEq one dose was given today morning ASSESSMENT: A 71-year-old female with past medical history of cerebral aneurysm and arteriovenous malformations, history of hypertension and depression, this admission with Staphylococcus aureus bacteremia. Nephrology service is following for acute kidney injury superimposed on possible chronic kidney disease. Baseline function is unknown, and patient also has hyponatremia and hypokalemia. PLAN: 1. Acute kidney injury: The patient's bedside bladder scan was done today, which had more than 500 mL of urine. Rocha catheter was placed, and 600 mL of urine came out. Acute kidney injury might be secondary to a combination of urinary obstruction and sepsis secondary to gram-positive bacteremia. Continue IV fluid hydration at this time. Continue to monitor intake and output. There is no urgent need of hemodialysis at this time. 2. Hypokalemia: The patient was already given a dose of potassium chloride 40 mEq by mouth times one dose today. 3. Staphylococcus aureus bacteremia: Source is unknown at this time. The patient continues to be on IV vancomycin. Bedside echocardiogram was done today. Report is pending. The patient will probably need transesophageal echocardiogram as well, to rule out cardiac vegetation. 4. Bilateral renal cysts on the ultrasound: I do not have the imaging available at this time. Ultrasound is reporting bilateral renal cysts, and on the left side there is total loss of the cortex and there is a big cyst. I suspect this might be hydronephrosis; however, I would not do any CT imaging at this time until the patient's renal function improves. When the patient's renal function improves, the patient will get a CT scan with contrast to further evaluate cysts in the kidneys. 5. Hyponatremia: The patient has euvolemic, hypotonic hyponatremia with relatively urine osmolarity and low urine sodium. It might be secondary to a combination of pulmonary infection-induced antidiuretic hormone (ADH) release, and ADH release secondary to dehydration and volume depletion. At this time, I will continue the IV fluid hydration. If the serum sodium starts dropping despite IV fluid hydration, then patient will be given a dose of tolvaptan. 6. Metabolic acidosis: Serum bicarbonate is 20 at this time. It is most likely secondary to acute kidney injury. No need of bicarbonate administration at this time. Bicarbonate level is expected to improve with improvement in the renal function. 7. Urinary retention: The patient got a Rocha catheter placed. Continue the Rocha at this time. The patient will need to be started on Flomax as well. 8. History of depression. Continue nortriptyline at this time. Avoid selective serotonin reuptake inhibitors (SSRIs) because they can worsen syndrome of inappropriate secretion of antidiuretic hormone (SIADH). The plan of care was discussed with the hospitalist, Dr. Martha Qureshi. Thank you for involving us in the care of the patient. We shall be happy to follow the patient along with you tomorrow morning.
[2016-11-27 22:00] VITALS: BP 132/59
[2016-11-28] MEDS: NAFCILLIN SOD 2 GM in D5W MINI-BAG PLUS 100 ML IV SCH ×7 (00:06→23:30)
[2016-11-28 04:00] VITALS: BP 132/68
[2016-11-28 06:00] VITALS: BP 121/92
--- NOTE | 2016-11-28 09:26 | IPN ---
DATE: 11/27/2016 SUBJECTIVE: The patient is seen this morning at the bedside. She continues to have a Rocha catheter in place and she continues to be normal saline at 80 mL/ hr. Her urine output has picked up after the Rocha catheter was placed for retention of 600 mL of urine yesterday. She had a low grade fever overnight, T-max 100.4, but she denied any chills or rigors. She had a 2D echo done as well yesterday which did not detect any clear vegetations, but did show diastolic dysfunction and a severe degree of subaortic stenosis. Her renal function has mildly improved post Rocha placement. The patient has provided me with the name and number of her primary care doctor in [place], [place], to obtain the patient's baseline creatinine from, Dr. Nicci Uribe, and I will reach out to her after the weekend. REVIEW OF SYSTEMS: Positive for a low grade fever and fatigue. Negative for chills, rigors, headache, shortness of breath, palpitations, nausea, vomiting. Positive for urinary retention requiring Rocha catheter. Positive for low grade fever. Remainder review of systems is negative. OBJECTIVE: VITAL SIGNS: T-max overnight 100.4. Temperature this a.m. 98.1. Pulse 80. Respiratory rate 18. Blood pressure 156/74. Saturating 94% on room air. GENERAL: Awake, alert, oriented times four, in bed sitting upright, in no acute distress. HEENT: Normocephalic, atraumatic. Extraocular muscles intact. Moist mucous membranes. CARDIAC: S1 ,S2. 2+ radial pulse. No edema. RESPIRATORY: Decreased breath sounds at the bases with fine crepitations seen on room air. ABDOMEN: Soft. Nontender. Bowel sounds present. GENITOURINARY: Rocha catheter with urine. EXTREMITIES: No significant peripheral edema. Compression devices in place. NEUROLOGIC: No focal deficits. Appropriately interactive and conversational. PSYCHIATRIC: Appropriate mood and affect. INTAKE AND OUTPUT: Intake 1550. Urine output yesterday 1875. Net negative fluid balance. Weight on the bed scale shows a 4 kg gain in 24 hours and is likely unreliable. LABORATORIES: Sodium 132 from 130 yesterday, potassium 3.3, bicarbonate 21, creatinine 1.47 from 1.5 yesterday, corrected calcium 9.5, magnesium 2.4. LFTs down trending. CRP 19. WBC 6.7, hemoglobin 14.5 and platelets 57. Blood cultures on 11/24/2016 with Staphylococcus aureus in both sets. GI tract PCR negative. IMAGING: Renal ultrasound on 11/26/2016: Right kidney 11.9 cm with a 5.5 cm septated cyst. Left kidney enlarged at 13.4 cm and dominated by an [address] of chest that was done on 11/24/2016 also noted a 9.5 cm left renal cyst along with right lower lobe consolidation. INPATIENT MEDICATIONS: Reviewed by myself. The patient has received two doses of potassium chloride 40 mEq. Her vancomycin has been discontinued and she is now on nafcillin 2 grams IV every 4 hours per the primary team. She remains on IV fluids with normal saline at 80 mL/hr. The remainder of her medications are unchanged from prior. PROBLEMS: 1. Staphylococcus aureus bacteremia, source uncertain. Echo did not reveal any definitive vegetation. It was a transthoracic echocardiogram and not transesophageal. Her right lower lobe pneumonia is another possible source. Her vancomycin has been discontinued and the patient is switched to nafcillin per the primary team. 2. Right lower lobe pneumonia with hyponatremia and elevated transaminases. I have sent a urine Legionella antigen test to rule out Legionnaire's given her pneumonia with hyponatremia, elevated transaminases and acute kidney injury (DANIELLE). She continues on antibiotics per the primary team. 3. Acute kidney injury. Since the Rocha was placed, the patient is making a lot more urine. We will monitor her serum sodium and make sure that this is not post obstructive diuresis. I will reach out to her primary physician in [place] for the patient's baseline creatinine and also her baseline platelets given that she has been quite thrombocytopenic over the course of this admission. Her renal ultrasound was concerning for a very large left renal cyst obliterating most of the renal parenchyma. I will hold off on a pre and post contrast CAT scan until her renal function improves a bit more. Given her large urine output and mild hyponatremia, I will continue her on normal saline. 4. Hypo-osmolar hyponatremia. Admission sodium was 127, has slowly come up to 132 today. We will continue her on normal saline for the time being. Check a Legionella antigen. 5. Hypokalemia. She has been given two doses of KCl today. 6. Thrombocytopenia. I will reach out to her primary care physician after the holiday to get the patient's baseline platelet level. 7. Hypertrophic aortic stenosis of severe degree and diastolic dysfunction seen on echocardiogram. Monitor volume status while the patient is on gentle IV fluids. Plan of care is discussed with Dr. Martha Qureshi. DILAN
[2016-11-28] MEDS: LACTOBACILLUS ACIDOPHILUS CAP (BACID) PO SCH ×3 (09:31→16:57)
[2016-11-28] MEDS: NS 1,000 ML IV SCH ×2 (11:50→16:58)
[2016-11-28 12:48] LABS: BASO % 0.3 % (0.0-1.0); EOS # 0.2 K/mm3 (0.0-0.50); EOS % 1.9 % (0.0-3.0); LARGE UNSTAINED CELL # 0.2 K/mm3 (0.0-0.4); LARGE UNSTAINED CELL % 2.8 % (0.0-4.0); LYMPH # 0.6 K/mm3 (1.5-4.5); LYMPH % 7.9 % (24.0-44.0); MEAN CORPUSCULAR HEMOGLOBIN 32.2 pg (27.0-33.0); MEAN CORPUSCULAR HGB CONC 33.7 g/dl (32.0-36.5); MEAN CORPUSCULAR VOLUME 95.5 fl (80.0-96.0); MONO # 0.5 K/mm3 (0.0-0.8); MONO % 6.3 % (0.0-5.0); NEUTROPHILS # 6.3 K/mm3 (1.8-7.7); NEUTROPHILS % 80.7 % (36.0-66.0); PLATELET COUNT, AUTOMATED 113 k/mm3 (150-450); RED CELL DISTRIBUTION WIDTH 13.4 % (11.5-14.5); WHITE BLOOD COUNT 7.8 K/mm3 (4.0-10.0)
[2016-11-28 13:07] LABS: ALBUMIN 1.8 GM/DL (3.2-5.2); ALBUMIN/GLOBULIN RATIO 0.55 (1.00-1.93); BILIRUBIN,TOTAL 1.3 MG/DL (0.2-1.0); CALCIUM LEVEL 7.6 MG/DL (8.8-10.2); CREATININE FOR GFR 1.56 MG/DL (0.55-1.02); GLOMERULAR FILTRATION RATE 34.9 (>39); MAGNESIUM LEVEL 2.2 MG/DL (1.8-2.4); POTASSIUM SERUM 4.2 MEQ/L (3.5-5.1); TOTAL PROTEIN 5.1 GM/DL (6.4-8.2)
[2016-11-28 14:00] VITALS: BP 127/74
--- NOTE | 2016-11-28 16:07 | REP ---
Clinical: Left upper extremity pain and swelling. Technique: Allen scale and color Doppler evaluation using linear high frequency transducer. Findings: Ultrasound examination of the left upper extremity deep venous structures including jugular, subclavian, axillary, brachial, basilic, and cephalic veins demonstrate normal compressibility, flow and wave patterns in response to respiration and augmentation. There is no evidence for deep venous thrombosis. Further evaluation at the level of the elbow demonstrates subcutaneous edema and small amount of fluid. Impression: 1. No evidence for deep venous thrombosis. 2. Edema and small amount of fluid at the level of the elbow should be correlated with physical examination. Signed by Constantino Bright MD 11/28/2016 03:59 P
[2016-11-28] MEDS: ACETAMINOPHEN TAB 650MG DOSE (2X325MG) PO PRN (16:57)
--- NOTE | 2016-11-28 17:21 | IPN ---
DATE: 11/28/2016 SUBJECTIVE: The patient is seen this morning at the bedside. She remains in bed. She states that she has not ambulated or gotten out of bed the past three or four days. She reports so-so appetite. She denies nausea, vomiting, diarrhea. She had multiple sticks this morning to draw her daily laboratories. She remains with a Rocha catheter in place with close to 3 liters urine output yesterday. She denies any shortness of breath with rest. REVIEW OF SYSTEMS: Negative for fever or chills. Negative for chest pain, palpitations, shortness of breath at rest. Negative for nausea, vomiting, diarrhea. Positive for Rocha catheter and positive for so-so appetite. Intake and output: Oral intake was not recorded yesterday. The patient's urine output with the Rocha catheter was 2850 mL. No weight on the bed scale today. OBJECTIVE: VITAL SIGNS: GENERAL: Patient is awake, alert, oriented and in bed. She appears fatigued. HEENT: Extraocular muscles intact. Moist mucous membranes. Neck is supple. Mild jugular venous pulsations are present. CARDIAC: S1 ,S2. Systolic murmur. Regular rate. No edema in the lower extremities or the dependent area. LUNGS: Fine crackle crepitations at the base of the right lower lobe. No wheeze or rhonchi. ABDOMEN: Soft. Nontender, nondistended. GENITOURINARY: Rocha catheter present. NEUROLOGIC: No focal deficits. PSYCHIATRIC: Appropriate mood and affect. LABORATORIES: White count 7.8, hemoglobin 13.9, platelets improved to 113,000. Chemistry: Sodium 134, potassium 4.2, bicarbonate 22, creatinine 1.5, corrected calcium 8.3, magnesium 2.2. Liver function tests downtrending. Microbiology: Repeat blood cultures today on 11/28/2016 are pending. Blood cultures on 11/24/2016 with Staphylococcus aureus in two sets. IMAGING: Duplex of the left upper extremity without deep vein thrombosis (DVT). INPATIENT MEDICATIONS: Reviewed by myself. The patient remains on nafcillin. Remains on normal saline at 80 mL/hr. PROBLEMS: 1. Staphylococcus aureus bacteremia, with the suspected source being right lower lobe pneumonia. The patient remains on nafcillin per primary team. She had a 2D echocardiogram, which did not show any definitive vegetation. She remains afebrile. Repeat blood cultures were sent today. 2. Acute kidney injury. I spoke to the patient's primary care physician in [place], [place], Dr. Nicci Uribe. The patient had blood work done there in July of this year, which showed a baseline creatinine of 0.8. She continues on normal saline without signs of volume overload. We will continue to hold off on CAT scan until her renal function improves further. 3. Hyponatremia. Has been improving on normal saline. Urine osmolality and uric acid are pending redraw since the patient has had increased urine output in the past day. Urine Legionella antigen is pending. 4. Thrombocytopenia. Laboratories in July of this year per the primary care physician showed a platelet count of 190,000. The patient has been thrombocytopenic during the course of her admission here. Her platelet count has improved today to 113,000. 5. Hypertrophic aortic stenosis of severe degree and diastolic dysfunction seen on echocardiogram. Currently, the patient has been diuresing with close to 3 liter urine output in the past 24 hours and reported so-so oral intake. I will continue her on IV fluid for the time being and monitor her respiratory and volume status. 6. Hypertension. Blood pressure is well controlled at this time on metoprolol 25 mg by mouth nightly. MTDD
[2016-11-28] MEDS: ATORVASTATIN 20 MG TAB PO SCH (20:36)
[2016-11-28] MEDS: PANTOPRAZOLE 40MG TAB (PROTONIX) PO SCH (20:36)
[2016-11-28] MEDS: ASPIRIN ENTERIC 325 MG TAB PO SCH (20:36)
[2016-11-28] MEDS: NORTRIPTYLINE 25 MG CAP PO SCH (20:36)
[2016-11-28] MEDS: PHENobarbital 30 MG TAB PO SCH (20:36)
[2016-11-28] MEDS: METOPROLOL SUCC *XL* 25MG TAB (TopROL *XL*) PO SCH (20:37)
[2016-11-28 22:00] VITALS: BP 121/77
--- NOTE | 2016-11-29 00:23 | IPNPDOC ---
Subjective Date Seen The patient was seen on 11/28/16. Subjective Chief Complaint/HPI The patient is a 71-year-old female admitted with a reason for visit of Right Lower Lobe Pneumonia. Pt was seen and examined at bedside. Pt states that her breathing is better and she feels better overall. Pt complains of warm, swollen , and painful left elbow. Staff mentioned difficulty drawing blood samples this morning, avoiding left erythematous arm, only attempting right arm. Pt's left ankle was mildly warm and swollen as well. Rocha catheter in place. Tolerating diet well. Discussed plan with patient. No reported events overnight. Constitutional: Denies: Chills, Fever ENT: Denies: Dysphagia Pulmonary: Denies: Dyspnea, Cough Cardiovascular: Denies: Chest Pain, Lt Headedness Gastrointestinal: Denies: Nausea, Vomiting, Abdominal Pain, Diarrhea, Constipation Genitourinary: Denies: Dysuria, Hematuria Musculoskeletal: Reports: Muscle Pain (Sore muscle on L chest wall midaxillary line) Neurological: Denies: Weakness, Numbness Psych: Reports: Mood Normal Objective Physical Examination General Exam: Positive: Alert, Cooperative, No Acute Distress Eye Exam: Positive: Conjunctiva & lids normal, EOMI ENT Exam: Positive: Atraumatic, Mucous membr. moist/pink Neck Exam: Positive: Supple, Negative: Lymphadenopathy Chest Exam: Positive: Clear to auscultation, Other Heart Exam: Positive: Rate Normal, Normal S1, Murmurs (systolic, loudest at 2nd intercostal space on left sternal border. Heart sounds loud in all 4 areas.) Abdomen Exam: Positive: Normal bowel sounds, Soft, Negative: Tenderness Extremity Exam: Positive: Edema (1+ on left ankle, no tenderness, warmer than right ankle), Swelling (L arm swelling, painful to touch and erythemetous ) Skin Exam: Positive: Other skin issue Neuro Exam: Positive: Normal Speech, Sensation Intact Psych Exam: Positive: Mental status NL, Mood NL, Oriented x 3 Assessment /Plan Assessment Staphylococcus aureus bacteremia -continue Nafcillin -Transthoracic echocardiogram was negative for vegetations. Spoke with Dr. Werner. Transesophageal echocardiogram scheduled for tomorrow 11/29/16. Pt NPO after midnight Right lower lobe pneumonia -is suspected source of bacteremia -CRP still elevated but trending down as of 11/27 Acute kidney injury -Nephrology consulted. Appreciate their assistance -Rocha catheter after bladder scan on 11/26/16 -Renal ultrasound showed 9.[address] may be needed, but will hold off until impaired renal function improves -Creatinine at 1.56 Left Arm Swelling -US done today: negative for DVT -PENDING: synovial fluid analysis, ESR, uric acid -will consult Ortho for arthrocentesis of left elbow Transaminitis due to current acute illnesses -levels improving -hepatitis panel negative on 11/24/16 Hypertension -Metoprolol restarted today by ID -bp controlled History of brain AV malformation -s/p surgical repair in 1991 with stent placement in 2009 -on Phenobarbital for seizure prophylaxis -Continue aspirin Hypertrophic aortic stenosis of severe degree -plan to obtain cardiac record from [place] -B-ester started per ID 11/28/16 Dyslipidemia -Continue home atorvastatin Depression -continue home nortriptyline DVT prophylaxis -TEDs/SCD Plan/VTE VTE Prophylaxis Ordered?: Yes Plan/Urinary Catheter Reason for insertion/continuin: Acute obstruct/retention VS, I&O, 24H, [facility] Vital Signs/I&O Vital Signs Date Time Temp Pulse Resp B/P (MAP) Pulse Ox O2 Delivery O2 Flow Rate FiO2 11/28/16 09:01 Room Air 11/28/16 06:00 98.3 65 17 121/92 (102) 98 I&O- Last 24 Hours up to 6 AM 11/28/16 05:59 Intake Total 120 ml Output Total 2850 ml Balance -2730 ml Laboratory Data 24H LABS Laboratory Tests 2 11/27/16 17:38: 11/28/16 12:15: White Blood Count 7.8, Red Blood Count 4.33, Hemoglobin 13.9, Hematocrit 41.3, Mean Corpuscular Volume 95.5, Mean Corpuscular Hemoglobin 32.2, Mean Corpuscular Hemoglobin Concent 33.7, Red Cell Distribution Width 13.4, Platelet Count 113L, Neutrophils (%) (Auto) 80.7H, Lymphocytes (%) (Auto) 7.9L, Monocytes (%) (Auto) 6.3H, Eosinophils (%) (Auto) 1.9, Basophils (%) (Auto) 0.3 , Neutrophils # (Auto) 6.3, Lymphocytes # (Auto) 0.6L, Monocytes # (Auto) 0.5, Eosinophils # (Auto) 0.2, Basophils # (Auto) 0.0, Large Unclassified Cells % 2.8 , Large Unclassified Cells # 0.2, Anion Gap 8, Glomerular Filtration Rate 34.9L , Blood Urea Nitrogen 17, Creatinine 1.56H, Sodium Level 134L, Potassium Level 4.2#, Chloride Level 104, Carbon Dioxide Level 22, Calcium Level 7.6L, Aspartate Amino Transf (AST/SGOT) 81H, Alanine Aminotransferase (ALT/SGPT) 104H , Alkaline Phosphatase 223H, Total Bilirubin 1.3#H, Total Protein 5.1L, Albumin 1.8L, Magnesium Level 2.2, Albumin/Globulin Ratio 0.55L CBC/BMP Laboratory Tests 11/28/16 12:15 Red Blood Count 4.33, Mean Corpuscular Volume 95.5, Mean Corpuscular Hemoglobin 32.2, Mean Corpuscular Hemoglobin Concent 33.7, Red Cell Distribution Width 13.4 , Neutrophils (%) (Auto) 80.7 H, Lymphocytes (%) (Auto) 7.9 L, Monocytes (%) ( Auto) 6.3 H, Eosinophils (%) (Auto) 1.9, Basophils (%) (Auto) 0.3, Neutrophils # (Auto) 6.3, Lymphocytes # (Auto) 0.6 L, Monocytes # (Auto) 0.5, Eosinophils # (Auto) 0.2, Basophils # (Auto) 0.0, Calcium Level 7.6 L, Aspartate Amino Transf (AST/SGOT) 81 H, Alanine Aminotransferase (ALT/SGPT) 104 H, Alkaline Phosphatase 223 H, Total Bilirubin 1.3 #H, Total Protein 5.1 L, Albumin 1.8 L Microbiology Microbiology 11/28/16 Blood Culture, Received Pending 11/28/16 Blood Culture, Received Pending 11/24/16 Blood Culture - Final, Complete Staphylococcus Aureus 11/24/16 Blood Culture - Final, Complete Staphylococcus Aureus 11/25/16 Gastrointestinal Tract Panel (PCR) - Final, Complete 11/25/16 Stool Occult Blood (MAEVE) - Final, Complete 11/24/16 Respiratory Virus Panel (PCR) (MAEVE) - Final, Complete 11/24/16 Influenza Virus Type A Antigen - Final, Complete 11/24/16 Influenza Virus Type B Antigen - Final, Complete 11/24/16 Urine Culture - Final, Complete GME ATTESTATION GME ATTESTATION My preceptor for this patient encounter was physically present in the building during the encounter and was fully available. As needed, all aspects of the patient interview, examination, medical decision making process, and medical care plan development were reviewed and approved by the preceptor. Preceptor is aware and concurs with the plan as stated in the body of this note and will attest to such by his/her cosignature. Attending Note Attending Note I have independently interviewed and examined this patient at the bedside and discussed the management plans with Dr. Clancy as documented above. ELFEGO CLANCY DO Nov 28, 2016 14:18 LORI MCKEON MD Nov 29, 2016 05:42
[2016-11-29] MEDS: NS 1,000 ML IV SCH (02:02)
[2016-11-29] MEDS: NAFCILLIN SOD 2 GM in D5W MINI-BAG PLUS 100 ML IV SCH ×5 (03:25→21:08)
[2016-11-29 06:00] VITALS: BP 132/60
[2016-11-29 07:15] LABS: BASO % 0.5 % (0.0-1.0); EOS # 0.2 K/mm3 (0.0-0.50); EOS % 2.4 % (0.0-3.0); LARGE UNSTAINED CELL # 0.3 K/mm3 (0.0-0.4); LARGE UNSTAINED CELL % 2.7 % (0.0-4.0); LYMPH # 0.7 K/mm3 (1.5-4.5); MEAN CORPUSCULAR HEMOGLOBIN 32.7 pg (27.0-33.0); MEAN CORPUSCULAR HGB CONC 34.1 g/dl (32.0-36.5); MEAN CORPUSCULAR VOLUME 95.9 fl (80.0-96.0); MONO # 0.5 K/mm3 (0.0-0.8); NEUTROPHILS # 7.8 K/mm3 (1.8-7.7); NEUTROPHILS % 82.4 % (36.0-66.0); PLATELET COUNT, AUTOMATED 169 k/mm3 (150-450); RED CELL DISTRIBUTION WIDTH 13.6 % (11.5-14.5); WHITE BLOOD COUNT 9.4 K/mm3 (4.0-10.0)
[2016-11-29 07:45] LABS: ALBUMIN 1.6 GM/DL (3.2-5.2); ALBUMIN/GLOBULIN RATIO 0.41 (1.00-1.93); BILIRUBIN,TOTAL 1.1 MG/DL (0.2-1.0); CALCIUM LEVEL 7.9 MG/DL (8.8-10.2); CREATININE FOR GFR 1.51 MG/DL (0.55-1.02); GLOMERULAR FILTRATION RATE 36.3 (>39); POTASSIUM SERUM 3.7 MEQ/L (3.5-5.1); TOTAL PROTEIN 5.5 GM/DL (6.4-8.2); URIC ACID 4.4 MG/DL (2.6-6.0)
[2016-11-29 07:52] LABS: ERYTHROCYTE SEDIMENTATION RATE 54 mm/hr (0-30)
[2016-11-29] MEDS: LACTOBACILLUS ACIDOPHILUS CAP (BACID) PO SCH ×3 (08:00→18:41)
--- NOTE | 2016-11-29 08:14 | CR ---
DATE OF CONSULTATION: 11/28/2016 REQUESTING PROVIDER: Hospitalist REASON FOR CONSULTATION: Management of Staphylococcus aureus bacteremia and questionable need for SILAS. HISTORY OF PRESENT ILLNESS: Mrs. Shaver is a pleasant 71-year-old female who presented with a 2 day history of fever, chills, rigors and generalized body pains. The patient had been on a trip and just flew back to [place]. While driving to her summer residence on [facility], the patient was having fever and chills. Her noted that she was also confused and not being able to make any sense while speaking. The next day she continued to have fever and due to the confusion, her brought her to the emergency room. The patient had a temperature of 102. Blood cultures were drawn, positive for methicillin sensitive Staphylococcus aureus (MSSA). She was started on empiric antibiotic coverage, which was de-escalated when cultures were positive for MSSA and the patient is currently on nafcillin 2 grams IV every 4 hours. She also developed acute kidney injury with a creatinine spike of 1.57. She had some evidence of urinary retention and a Rocha catheter was placed. She is followed up by nephrology. The patient's baseline creatinine is less than 1. She does not have primary care provider in the area. She spends about 6 months in [place] where she is a resident and 6 months on [facility], where she spends her summer. She complains of generalized body aches. She has difficulty rolling in bed. Complains mostly of left arm pain, elbow and wrist, low back pain, generalized and diffuse. She had some abdominal pain and diarrhea that has now resolved. PAST MEDICAL HISTORY: Her past medical history is significant for hypertension, hyperlipidemia, arthritis, depression, history of AV malformation that was corrected surgically and then a stent was also placed. History of one seizure episode. The patient remains on chronic suppressive therapy with anti-seizure medication. PAST SURGICAL HISTORY: AVM surgery in 1991, aneurysm with stenting in 2009. Neck surgery for removal of a cyst. ALLERGIES: NO KNOWN DRUG ALLERGIES. MEDICATIONS: - aspirin 325 mg daily - Lipitor 20 mg daily - Tums 1000 mg twice a day - nortriptyline 25 mg daily - Protonix 40 mg daily - phenobarbital 120 mg by mouth daily - potassium chloride started in the hospital - metoprolol 25 mg by mouth at night - nafcillin 2 grams IV every 4 hours LABORATORY DATA: White count has been normal throughout the admission, currently 7.8, hemoglobin 13.9, hematocrit 41.3, platelets 113. Platelets had dropped down to 51 and are currently improving. ESR on admission 30, 84% neutrophils, 3% bands, 8% lymphocytes. Sodium 134, potassium 4.2, chloride 104, bicarbonate 22, BUN 17, creatinine 1.56, glucose 138, calcium 7.6, magnesium 2.2, bilirubin 1.3, AST 81, ALT 104, which have improved from 219 and 175, CRP 21.2 down to 19.9, BNP 1220, total protein 5.1, albumin 1.8. Blood cultures drawn on 11/24/2016 2 hours apart were positive for MSSA. Urine culture was no growth. Respiratory panel was negative. Influenza A and B was negative. Stool Hemoccult was negative. Gastrointestinal panel was negative. Repeat blood cultures, two sets, were drawn on 11/28/2016 and are pending. IMAGING STUDIES: Chest x-ray done 11/24/2016 cannot exclude left lower lobe atelectasis versus early infiltrate. Wrist x-ray on the left shows degenerative changes at the first and second carpometacarpal joints. Gallbladder ultrasound shows hepatoparenchymal disease, cholelithiasis without acute cholecystitis and a complex septated right renal cyst. Chest CT showed bibasilar atelectasis and small right lower lobe consolidation, cholelithiasis. Renal ultrasound showed bilateral renal cysts with no evidence of hydronephrosis. Left parenchyma has a large cyst measuring 11.2 x 7.2 x 9.4 cm. Vascular ultrasound of left upper extremity showed no evidence of deep vein thrombosis (DVT), but there is edema and a small amount of fluid at the level of the elbow to be correlated clinically. PHYSICAL EXAMINATION: On physical exam, she is a sick looking female in moderate discomfort, having difficulty moving in bed. Alert and oriented times three. Temperature is 99.2, pulse 92, respirations 18, blood pressure 127/74, oxygen saturation 96% on room air. HEART: Normal S1, S2 with a loud systolic ejection murmur 3/6 best heard at the left upper sternal border. LUNGS: Clear with no wheezes, rales or rhonchi. ABDOMEN: Soft, nontender. No hepatosplenomegaly. BACK: Diffusely tender in the paraspinal muscles. No localized tenderness at any thoracolumbar vertebrae. HIPS: Both normal range of motion. EXTREMITIES: Trace edema bilaterally. No clubbing or cyanosis. No calf tenderness. HEENT: Oropharynx is clear with no thrush. No lesion. Neck is supple. No jugular venous distention (JVD). No bruits. No meningeal symptoms. NEUROLOGIC: Alert and oriented times three. MUSCULOSKELETAL: Left wrist has normal range of motion. Left elbow has definite erythema at the olecranon bursa with some fluctuance. Elbow has fair range of motion. Wrist has normal range of motion. Shoulder has no limitation and has normal range of motion. Echocardiogram: There was no evidence of vegetation. There is hypertrophic subaortic stenosis of severe degree, moderate left atrial enlargement. Normal right heart chambers, subtle aortic valve sclerosis, mild mitral annular thickening but no LV inflow tract obstruction. Mild mitral insufficiency. EKG shows borderline first degree AV block. Left ventricular hypertrophy. IMPRESSION: This is a 71-year-old female who was admitted with a couple days of fever, rigors, generalized body aches and has evidence on exam of a left elbow olecranon bursitis, has positive blood cultures for methicillin sensitive Staphylococcus aureus (MSSA). Even though CT chest is suggestive of a pneumonia , the patient clinically did not present with pneumonia symptoms. She has no cough, no shortness of breath and nothing to suggest a pulmonary infection. I would question this diagnosis of right lower lobe pneumonia. My concern is she may have acute endocarditis. had stated that she was confused on admission, she does not look confused but she did not have any imaging of her head. The patient has significant cardiac history and therefore a transesophageal echocardiogram should be done to rule out acute endocarditis as her cause of presentation. The patient has significant low back pain, difficulty moving in bed but this seems paraspinal and muscular in origin and improves with massage. There is no localized tenderness to suggest discitis. Urine is pretty benign to suggest pyelonephritis or kidney infection so my suspicion is pretty high that she might have acute endocarditis with MSSA. PLAN: Schedule transesophageal echocardiogram to rule out endocarditis. Repeat blood cultures have been ordered on 11/28/2016. Continue IV nafcillin at 2 grams every 4 hours. Consult orthopedic surgery for evaluation of left elbow bursitis versus septic arthritis. Repeat ESR and C-reactive protein in the morning. Further decisions will depend on results of the SILAS and clinical improvement. Case has been discussed with Dr. Bailey, who agrees with a plan. [facility]
--- NOTE | 2016-11-29 09:52 | REP ---
Clinical: Pain and swelling . Technique: AP, lateral, bilateral oblique views of the left elbow. Findings: No acute fracture or dislocation is appreciated. Joint spaces are unremarkable. Lateral view suggests mild posterior soft tissue swelling over the left benign process which may reflect bursitis. Normal positioning to the anterior and posterior fat pads without evidence for effusion/hemarthrosis. No subcutaneous emphysema or foreign body identified. Impression: No acute fracture dislocation. No obvious effusion. Cannot exclude mild posterior swelling/bursitis. Signed by Constantino Bright MD 11/29/2016 09:44 A
[2016-11-29] MEDS ORDERED: PROPOFOL 200 MG/20 ML VIAL As Ordered ONE ×2 (14:10→14:55)
[2016-11-29] MEDS ORDERED: LIDOCAINE 2% INJ 100 MG/5 ML SDV (FOR ANES.) As Ordered ONE (14:10)
[2016-11-29] MEDS ORDERED: fentaNYL 100 MCG/2 ML INJECTION (J3010) IV PRN (15:30)
[2016-11-29] MEDS ORDERED: diltiaZEM 125 MG in NS 100 ML IV SCH (16:00)
[2016-11-29] MEDS ORDERED: SODIUM CHLORIDE 0.9% 1000 ML IV ONE (16:00)
[2016-11-29 16:43] VITALS: BP 128/66
[2016-11-29] MEDS ORDERED: FUROSEMIDE 40 MG/4 ML VIAL (J1940) IV SCH (17:00)
--- NOTE | 2016-11-29 17:01 | T-ECHO ---
DATE OF PROCEDURE: 11/29/2016 REFERRING PHYSICIAN: Dr. Thu Bailey PREPROCEDURE DIAGNOSIS: Staphylococcus aureus bacteremia and sepsis. 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 FINDINGS: See conclusions below. Infective endocarditis of the mitral valve with moderate mitral annular calcification and severe mitral regurgitation as the mean findings. PROCEDURE PERFORMED: Transesophageal echocardiogram. PROCEDURE PERFORMED: Juwan Werner MD DIRECTOR OF DISTANCE LEARNING: None. CONSCIOUS SEDATION: Moderate conscious sedation applied by the HEALTH INFORMATION DIRECTOR in the operating room. COMPLICATIONS: None. PROCEDURE DESCRIPTION: Rhythm appeared sinus. Patient received Cetacaine spray to the back of the pharynx. After receiving adequate conscious sedation, the transesophageal echocardiogram probe (Lui multiplane two-dimensional transesophageal echocardiogram) was placed into the esophagus by Dr. Werner. Towards the end of the study a gastric window to look at the heart was also obtained. Rhythm was sinus. Left ventricle appeared to have moderate concentric left ventricular hypertrophy. No regional wall motion abnormalities of the left ventricle. Left ventricular ejection fraction 75% by visual estimate. Right ventricle appeared normal in size and systolic function. Lipomatous hypertrophy of the intraatrial septum was present. No atrial septal defect or patent foramen ovale detected by visual assessment and by color flow Doppler. Moderate mitral annular calcifications present. Two vegetations were seen on the mitral valve which were small and stringy in appearance. The larger of the two appeared to be on the posterior mitral leaflet. No broken chordae or flail segments were identified. The width of the color flow jet (vena contracta) was suggestive of moderate mitral regurgitation, however, the mitral regurgitation jet reached the superior roof of the left atrium where it changed directions and therefore would be classified as severe mitral regurgitation. There was no cystotic flow reversal in the left upper pulmonary vein. Aortic valve was three-cuspid and had moderate focal thickening and focal cusp of deposits. No aortic stenosis. Very mild aortic regurgitation was present. Pulmonic valve was difficulty to visualize but appeared normal Tricuspid leafs appeared normal. No significant tricuspid regurgitation identified. No pericardial effusion. Descending thoracic aorta showed mild atheroma. Patient tolerated the procedure well without any immediate complications. CONCLUSIONS: 1. Two vegetations on the mitral valve which appeared small. Moderate mitral annular calcification. Severe mitral regurgitation. No flail segments or broke chordae identified involving the mitral valve. 2. Left ventricle hypertrophy, probably at least moderate. Hyperdynamic left ventricle (LV) systolic function. 3. Moderate aortic valve sclerosis of a three-cusp aortic valve. Very mild aortic regurgitation. No aortic stenosis. 4. Hyperdynamic LV systolic function. 5. Lipomatous hypertrophy of the intraatrial septum. 6. Mild atheroma involving the descending thoracic aorta. RECOMMENDATIONS: I discussed the findings of the TE with Dr. Thu Bailey following completion of the procedure. 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
--- NOTE | 2016-11-29 17:41 | REP ---
Portable chest x-ray: Single view: History: Shortness of breath. Comparison chest x-ray 11/24/2016. Findings: EKG monitoring electrodes overlie the chest. Cardiomediastinal silhouette is unchanged and unremarkable. Pulmonary vasculature is not increased. Pleural angles are sharp. Impression: No acute disease. Signed by Ervin Knight MD 11/29/2016 06:41 P
--- NOTE | 2016-11-29 17:58 | IPN ---
DATE: 11/29/2016 SUBJECTIVE: The patient is seen this morning at the bed side. She is out of bed to chair. She states that it is the first time in the past three days that she has gotten out of bed and ambulated. She denied shortness of breath with ambulation. She is nothing by mouth currently for SILAS later today. She complains of left upper extremity swelling and soreness at the elbow. She had a venous duplex which did not reveal any deep vein thrombosis. She has been afebrile and repeat blood cultures have not shown growth for 24 hours. She continues on room air. Today she looks like she has mild volume overload and I have discussed with the patient that I will stop her IV fluids at this time. REVIEW OF SYSTEMS: Positive for fatigue and left upper extremity swelling and pain. Patient reports also intake. No fevers, no chills, no chest pain, no palpitations, no shortness of breath, no nausea, no vomiting, no diarrhea. The remainder of review of systems is negative. VITAL SIGNS: 98.8, pulse 88, respirations 18, 13/260 blood pressure saturating 95% on room air. Intake and output: Urine output in the past 24 hours 1550 mL to the Rocha catheter. Her weight in the bed scale has been up trending 83.1 kg today. PHYSICAL EXAMINATION: Patient is sitting out of bed to the chair. She is awake, alert and oriented in no acute distress. Extraocular muscles are intact and mucous membranes are moist. Neck shows jugular venous pulsations. Cardiac: S1, S2, 2+ radial pulse. She has no pedal edema in both feet. Respiratory: Fine crackles at base of lungs on room air. Abdomen: Soft, obese, nontender. Extremities: Pedal edema. No other significant peripheral edema except for swelling in left arm. Neurologic: No focal deficit, appropriately interactive and conversational. Psychiatric: Appropriate mood and affect. LABS: White count 9.4, hemoglobin 13.9, platelet count has improved to 169. Erythrocyte sedimentation rate 54, sodium 137, improved from prior, potassium 3.7, bicarbonate 20, creatinine 1.5, uric acid 4.4, LFT's down trending. Microbiology: Blood cultures drawn November 28 with no growth for 24 hours. IMAGING: Left upper extremity venous duplex without deep vein thrombosis. Left upper extremity x-rays without fracture, dislocation or effusion. INPATIENT MEDICATION: Patient continues on nafcillin. I have discontinued her IV fluids. She is on Toprol XL at bed time. The remainder of her medications are unchanged from prior. PLAN: 1. Staphylococcus aureus bacteremia. Patient's repeat set of blood cultures have been no growth for 24 hours. She remains on nafcillin per primary team. She is nothing by mouth for SILAS later today. Patient remains afebrile. 2. Acute kidney injury. Patient's baseline creatinine of July of this year was 0.8. Her renal function has been relatively stable for the past three days and I would discontinue IV fluids at this time. Patient is tolerating by mouth intake. She does have new signs of mild volume overload, including pedal edema and fine crackles at both bases and notable jugular venous pulsations. She remains comfortable on room air. Renal ultrasound that she had done here was suggestive of a large cyst on the left kidney dominating the kidney with only minimal residual renal parenchyma. As an outpatient, she should have a nuclear renal scan to see how much function the left kidney is providing with that large cyst. No contrast studies at this time until the renal function further improves. 3. Hyponatremia resolved. Discontinue normal saline. Urine legionella antigen pending. 4. Thrombocytopenia. Etiology uncertain. Patient's platelet count was in the 50,000 on admission. It has slowly improved over the past 48 hours. She does not have a prior history of thrombocytopenia. 5. Hypertrophic aortic stenosis of severe degree and diastolic dysfunction. Stop IV fluids. Patient continues on Toprol XL. She does have signs of mild volume overload but is comfortable on room air, and I would not start on diuretics at this time. We will monitor her off of fluids. 6. Left upper extremity swelling and elbow tenderness. Patient had a negative deep vein thrombosis duplex and x-rays did not reveal trauma. Per primary team, orthopedics has been consulted.
[2016-11-29 20:57] VITALS: BP 136/71
[2016-11-29] MEDS: NORTRIPTYLINE 25 MG CAP PO SCH (21:08)
[2016-11-29] MEDS: METOPROLOL SUCC *XL* 25MG TAB (TopROL *XL*) PO SCH (21:08)
[2016-11-29] MEDS: PANTOPRAZOLE 40MG TAB (PROTONIX) PO SCH (21:08)
[2016-11-29] MEDS: ASPIRIN ENTERIC 325 MG TAB PO SCH (21:08)
[2016-11-29] MEDS: ATORVASTATIN 20 MG TAB PO SCH (21:09)
[2016-11-29] MEDS: PHENobarbital 30 MG TAB PO SCH (21:12)
[2016-11-29 23:59] VITALS: BP 136/67
[2016-11-30] MEDS: NAFCILLIN SOD 2 GM in D5W MINI-BAG PLUS 100 ML IV SCH ×7 (01:00→23:56)
[2016-11-30 04:13] VITALS: BP 123/68
[2016-11-30 05:48] LABS: BASO % 0.5 % (0.0-1.0); EOS # 0.3 K/mm3 (0.0-0.50); EOS % 3.1 % (0.0-3.0); LARGE UNSTAINED CELL # 0.2 K/mm3 (0.0-0.4); LARGE UNSTAINED CELL % 1.9 % (0.0-4.0); LYMPH # 1.1 K/mm3 (1.5-4.5); MEAN CORPUSCULAR HEMOGLOBIN 33.4 pg (27.0-33.0); MEAN CORPUSCULAR HGB CONC 34.3 g/dl (32.0-36.5); MEAN CORPUSCULAR VOLUME 97.4 fl (80.0-96.0); MONO # 0.5 K/mm3 (0.0-0.8); MONO % 4.8 % (0.0-5.0); NEUTROPHILS # 8.8 K/mm3 (1.8-7.7); NEUTROPHILS % 81.7 % (36.0-66.0); PLATELET COUNT, AUTOMATED 231 k/mm3 (150-450); RED CELL DISTRIBUTION WIDTH 14.1 % (11.5-14.5); WHITE BLOOD COUNT 10.7 K/mm3 (4.0-10.0)
[2016-11-30 06:19] LABS: ALBUMIN 1.7 GM/DL (3.2-5.2); ALBUMIN/GLOBULIN RATIO 0.41 (1.00-1.93); CALCIUM LEVEL 7.8 MG/DL (8.8-10.2); CREATININE FOR GFR 1.66 MG/DL (0.55-1.02); GLOMERULAR FILTRATION RATE 32.5 (>39); POTASSIUM SERUM 3.4 MEQ/L (3.5-5.1); TOTAL PROTEIN 5.8 GM/DL (6.4-8.2)
[2016-11-30] MEDS ORDERED: POTASSIUM CHLORIDE 10 MEQ SR TABLET PO ONE (06:45)
[2016-11-30 07:45] VITALS: BP 133/75
--- NOTE | 2016-11-30 07:48 | REP ---
Clinical: Shortness of breath. Comparison: 11/29/2016. Findings: Mediastinum and cardiac silhouette are within normal limits and stable. Basilar atelectasis cannot be excluded along with small right pleural effusion. No pneumothorax. Skeletal structures intact. Impression: Chronic stable changes. Superimposed right lower lobe atelectasis and small pleural effusion suggested. Signed by Constantino Bright MD 11/30/2016 07:39 A
[2016-11-30] MEDS: LACTOBACILLUS ACIDOPHILUS CAP (BACID) PO SCH ×3 (08:26→16:38)
--- NOTE | 2016-11-30 10:26 | CR ---
DATE OF CONSULTATION: 11/30/2016 REASON FOR CONSULTATION: Left elbow swelling. HISTORY OF PRESENT ILLNESS: She is a 71-year-old female who has been admitted to the [facility] with Staphylococcus aureus bacteremia and found to also have a bacterial endocarditis. She was admitted to the hospital on 11/24/2016 after developing fevers and chills for a couple of days prior to admission. She pringle on [facility] with her and had some confusion. Her brought her to the hospital where she was found to have methicillin sensitive Staphylococcus aureus (MSSA) bacteremia. At the time of admission, she was also complaining of some swelling, redness and some soreness of the left elbow and the wrist that developed since she has been admitted, she describes to me this morning, but she has gotten significantly better since she has been hospitalized, she describes. She has been on nafcillin 2 grams IV every 4 hours. PAST MEDICAL HISTORY: Significant for: 1. Atrioventricular malformation. 2. Cardiac surgery in the past. 3. Hyperlipidemia. 4. Depression. 5. Hypertension. 6. History of seizure episode. PAST SURGICAL HISTORY: 1. Atrioventricular malformation surgery in 1991. 2. Aneurysmal stenting in 2009. 3. Neck surgery for removal of a cyst in the past. ALLERGIES: No known drug allergies. MEDICATIONS: At home: - aspirin - Lipitor - nortriptyline - Protonix - phenobarbital - potassium chloride - metoprolol Now she is on nafcillin while in the hospital. LABORATORY STUDIES: Since her admission showing blood cultures growing positive MSSA. Transesophageal echocardiogram showed vegetations consistent with bacterial endocarditis. Chest x-ray shows some atelectasis. Left wrist x-ray done on admission showed some degenerative changes at the first and second carpometacarpal joint area. Left elbow x-rays were unremarkable. Ultrasound of her left upper extremity did not show evidence of deep vein thrombosis (DVT), just some mild swelling posterior to the left elbow. Her white blood count was 10.7, platelets 231 with a sedimentation rate today of 63 and a C-reactive protein elevated at 19.9 on 11/27/2016 but it is down to 11.6 today. She has had some elevated creatinine, it was 1.6 today with a BUN of 24. Sodium 136, potassium 3.4, chloride 105, bicarbonate 20. Liver function tests are elevated. Protein and albumin are low. PHYSICAL EXAMINATION: She is alert. She is pleasant. She describes her left elbow pain as being significantly improved, it is not worsening. She has no tenderness or swelling of the left wrist, but her left arm shows some fullness compared to the opposite right arm, relatively diffusely. There is no pitting edema. The left elbow has some slight redness posteriorly over the olecranon tip, but there is no fluid in the olecranon bursal sac. She can flex and extend the elbow without pain or significant irritability. She has normal pronation and supination. She can elevate her arm up over head with no pain or irritability of the left shoulder. She has a strong radial pulse. She can flex and extend her fingers with normal sensation. Good capillary refill. So putting this together, I think that she has bacterial endocarditis with a bacteremia of methicillin sensitive Staphylococcus aureus and likely has developed a cellulitis about the left elbow, could be related to some olecranon bursal fluid, but given the fact that she has good range of motion without any significant irritability of that elbow, I doubt this to be a septic joint. She is improving on the present course of IV nafcillin and I would recommend continued observation, symptomatic measures, and continue with IV antibiotics and we will follow her along. I do not think that there is any surgical indication presently. Her left wrist pain seems to have been resolved at this point.
[2016-11-30 12:00] VITALS: BP 124/60
[2016-11-30 14:26] LABS: COMPLEMENT C4 6.2 MG/DL (10-40)
[2016-11-30] MEDS ORDERED: SODIUM CHLORIDE 0.9% INJ 10 ML SYR IV PRN (15:00)
[2016-11-30 15:50] VITALS: BP 129/66
[2016-11-30] MEDS: SODIUM CHLORIDE 0.9% INJ 10 ML SYR IV SCH (16:39)
[2016-11-30 19:41] VITALS: BP 129/63
[2016-11-30] MEDS: NORTRIPTYLINE 25 MG CAP PO SCH (20:55)
[2016-11-30] MEDS: PANTOPRAZOLE 40MG TAB (PROTONIX) PO SCH (20:56)
[2016-11-30] MEDS: METOPROLOL SUCC *XL* 25MG TAB (TopROL *XL*) PO SCH (20:56)
[2016-11-30] MEDS: PHENobarbital 30 MG TAB PO SCH (20:56)
[2016-11-30] MEDS: ASPIRIN ENTERIC 325 MG TAB PO SCH (20:56)
--- NOTE | 2016-11-30 21:26 | IPNPDOC ---
Subjective Date Seen The patient was seen on 11/29/16. Subjective Chief Complaint/HPI The patient is a 71-year-old female admitted with a reason for visit of Right Lower Lobe Pneumonia. Pt examined at bedside with in room. Pt is scheduled to have SILAS by Dr. Werner today. Pt denies acute complaints. States her left elbow swelling seems to be improving, but still feels pressure and stinging sensation. No reported events overnight. Constitutional: Denies: Chills, Fever ENT: Denies: Head Aches Pulmonary: Denies: Dyspnea, Cough Cardiovascular: Denies: Chest Pain, Palpitations, Lt Headedness Gastrointestinal: Denies: Nausea, Vomiting, Abdominal Pain, Diarrhea, Constipation Neurological: Denies: Weakness, Numbness Objective Physical Examination General Exam: Positive: Alert, Cooperative, No Acute Distress Eye Exam: Positive: Conjunctiva & lids normal, EOMI ENT Exam: Positive: Atraumatic, Mucous membr. moist/pink Neck Exam: Positive: Supple, JVD (visible strong pulsations), Negative: Lymphadenopathy Chest Exam: Positive: Clear to auscultation, Rales (mild rales bilateral lower lung liu) Heart Exam: Positive: Rate Normal, Regular Rhythm, Normal S1, Murmurs (systolic , loudest at 2nd intercostal space on left sternal border. Heart sounds loud in all 4 areas.) Abdomen Exam: Positive: BS Hypoactive, Soft, Negative: Tenderness Extremity Exam: Positive: Normal pulses, Swelling (L elbow swelling, mild tenderness to touch and area of erythema improving from yesterday), Negative: Edema, Tenderness Neuro Exam: Positive: Normal Speech, Sensation Intact Psych Exam: Positive: Mental status NL, Mood NL, Oriented x 3 Assessment /Plan Assessment Staphylococcus aureus bacteremia -continue Nafcillin -Transthoracic echocardiogram was negative for vegetations. Spoke with Dr. Werner. Transesophageal echocardiogram scheduled for today 11/29/16. -Alk Phos continuing to improve Left elbow swelling -septic joint vs olecranon bursitis vs effusion vs gout -ESR elevated, uric acid normal, so gout is less likely. May need synovial fluid analysis to find etiology -Ortho consulted, possible arthrocentesis. Appreciate their assistance -elbow x-ray ordered-pending. Elbow US was negative for DVT Right lower lobe pneumonia -is suspected source of bacteremia -CRP still elevated but trending down as of 11/27 Acute kidney injury -Creatinine elevated at 1.51, but improving along with GFR -Nephrology consulted. Appreciate their assistance -Rocha catheter discontinued 11/29 -Renal ultrasound showed 9.[address] may be needed, but will hold off until impaired renal function improves Transaminitis due to current acute illnesses -continuing to improve -hepatitis panel negative on 11/24/16 Hypertension -bp controlled. Continue B-Juan -Metoprolol restarted 11/28 by ID History of brain AV malformation -s/p surgical repair in 1991 with stent placement in 2009 -on Phenobarbital for seizure prophylaxis -Continue aspirin Hypertrophic aortic stenosis of severe degree -plan to obtain cardiac record from [place] -B-juan started per ID 11/28/16 Dyslipidemia -Continue home atorvastatin Depression -continue home nortriptyline DVT prophylaxis -TEDs/SCD Plan/VTE VTE Prophylaxis Ordered?: Yes Plan/Urinary Catheter Reason for insertion/continuin: Acute obstruct/retention VS, I&O, 24H, Fishbone Vital Signs/I&O Vital Signs Date Time Temp Pulse Resp B/P (MAP) Pulse Ox O2 Delivery O2 Flow Rate FiO2 11/29/16 06:00 98.8 88 18 132/60 (84) 95 Room Air I&O- Last 24 Hours up to 6 AM 11/29/16 06:00 Intake Total 1320 ml Output Total 1450 ml Balance -130 ml Laboratory Data 24H LABS Laboratory Tests 2 11/28/16 12:15: White Blood Count 7.8, Red Blood Count 4.33, Hemoglobin 13.9, Hematocrit 41.3, Mean Corpuscular Volume 95.5, Mean Corpuscular Hemoglobin 32.2, Mean Corpuscular Hemoglobin Concent 33.7, Red Cell Distribution Width 13.4, Platelet Count 113L, Neutrophils (%) (Auto) 80.7H, Lymphocytes (%) (Auto) 7.9L, Monocytes (%) (Auto) 6.3H, Eosinophils (%) (Auto) 1.9, Basophils (%) (Auto) 0.3 , Neutrophils # (Auto) 6.3, Lymphocytes # (Auto) 0.6L, Monocytes # (Auto) 0.5, Eosinophils # (Auto) 0.2, Basophils # (Auto) 0.0, Large Unclassified Cells % 2.8 , Large Unclassified Cells # 0.2, Anion Gap 8, Glomerular Filtration Rate 34.9L , Blood Urea Nitrogen 17, Creatinine 1.56H, Sodium Level 134L, Potassium Level 4.2#, Chloride Level 104, Carbon Dioxide Level 22, Calcium Level 7.6L, Aspartate Amino Transf (AST/SGOT) 81H, Alanine Aminotransferase (ALT/SGPT) 104H , Alkaline Phosphatase 223H, Total Bilirubin 1.3#H, Total Protein 5.1L, Albumin 1.8L, Magnesium Level 2.2, Albumin/Globulin Ratio 0.55L 11/29/16 07:01: White Blood Count 9.4, Red Blood Count 4.23, Hemoglobin 13.9, Hematocrit 40.6, Mean Corpuscular Volume 95.9, Mean Corpuscular Hemoglobin 32.7, Mean Corpuscular Hemoglobin Concent 34.1, Red Cell Distribution Width 13.6, Platelet Count 169, Neutrophils (%) (Auto) 82.4H, Lymphocytes (%) (Auto) 7.0L, Monocytes (%) (Auto) 5.0, Eosinophils (%) (Auto) 2.4, Basophils (%) (Auto) 0.5, Neutrophils # (Auto) 7.8H, Lymphocytes # (Auto) 0.7L, Monocytes # (Auto) 0.5, Eosinophils # (Auto) 0.2, Basophils # (Auto) 0.0, Large Unclassified Cells % 2.7 , Large Unclassified Cells # 0.3, Anion Gap 13, Glomerular Filtration Rate 36.3L , Blood Urea Nitrogen 18, Creatinine 1.51H, Sodium Level 137, Potassium Level 3.7, Chloride Level 104, Carbon Dioxide Level 20L, Calcium Level 7.9L, Aspartate Amino Transf (AST/SGOT) 74H, Alanine Aminotransferase (ALT/SGPT) 85H, Alkaline Phosphatase 195H, Total Bilirubin 1.1H, Total Protein 5.5L, Albumin 1.6L, Magnesium Level 2.0, Albumin/Globulin Ratio 0.41L, Erythrocyte Sedimentation Rate 54H, Uric Acid 4.4 CBC/BMP Laboratory Tests 11/28/16 12:15 Red Blood Count 4.33, Mean Corpuscular Volume 95.5, Mean Corpuscular Hemoglobin 32.2, Mean Corpuscular Hemoglobin Concent 33.7, Red Cell Distribution Width 13.4 , Neutrophils (%) (Auto) 80.7 H, Lymphocytes (%) (Auto) 7.9 L, Monocytes (%) ( Auto) 6.3 H, Eosinophils (%) (Auto) 1.9, Basophils (%) (Auto) 0.3, Neutrophils # (Auto) 6.3, Lymphocytes # (Auto) 0.6 L, Monocytes # (Auto) 0.5, Eosinophils # (Auto) 0.2, Basophils # (Auto) 0.0, Calcium Level 7.6 L, Aspartate Amino Transf (AST/SGOT) 81 H, Alanine Aminotransferase (ALT/SGPT) 104 H, Alkaline Phosphatase 223 H, Total Bilirubin 1.3 #H, Total Protein 5.1 L, Albumin 1.8 L 11/29/16 07:01 Red Blood Count 4.23, Mean Corpuscular Volume 95.9, Mean Corpuscular Hemoglobin 32.7, Mean Corpuscular Hemoglobin Concent 34.1, Red Cell Distribution Width 13.6 , Neutrophils (%) (Auto) 82.4 H, Lymphocytes (%) (Auto) 7.0 L, Monocytes (%) ( Auto) 5.0, Eosinophils (%) (Auto) 2.4, Basophils (%) (Auto) 0.5, Neutrophils # ( Auto) 7.8 H, Lymphocytes # (Auto) 0.7 L, Monocytes # (Auto) 0.5, Eosinophils # ( Auto) 0.2, Basophils # (Auto) 0.0, Calcium Level 7.9 L, Aspartate Amino Transf ( AST/SGOT) 74 H, Alanine Aminotransferase (ALT/SGPT) 85 H, Alkaline Phosphatase 195 H, Total Bilirubin 1.1 H, Total Protein 5.5 L, Albumin 1.6 L, Uric Acid 4.4 Microbiology Microbiology 11/28/16 Blood Culture - Preliminary, Resulted No growth after 24 hours . All specim... 11/28/16 Blood Culture - Preliminary, Resulted No growth after 24 hours . All specim... 11/24/16 Blood Culture - Final, Complete Staphylococcus Aureus 11/24/16 Blood Culture - Final, Complete Staphylococcus Aureus 11/25/16 Gastrointestinal Tract Panel (PCR) - Final, Complete 11/25/16 Stool Occult Blood (MAEVE) - Final, Complete 11/24/16 Respiratory Virus Panel (PCR) (MAEVE) - Final, Complete 11/24/16 Influenza Virus Type A Antigen - Final, Complete 11/24/16 Influenza Virus Type B Antigen - Final, Complete 11/24/16 Urine Culture - Final, Complete GME ATTESTATION GME ATTESTATION My preceptor for this patient encounter was physically present in the building during the encounter and was fully available. As needed, all aspects of the patient interview, examination, medical decision making process, and medical care plan development were reviewed and approved by the preceptor. Preceptor is aware and concurs with the plan as stated in the body of this note and will attest to such by his/her cosignature. Attending Note Attending Note I have independently interviewed and examined this patient at the bedside, and discussed the management plan with my Resident Physician, Dr. Clancy, as documented above. ELFEGO CLANCY DO Nov 29, 2016 08:31 LORI MCKEON MD Dec 01, 2016 08:38
--- NOTE | 2016-11-30 22:13 | IPNPDOC ---
Subjective Date Seen The patient was seen on 11/30/16. Subjective Chief Complaint/HPI The patient is a 71-year-old female admitted with a reason for visit of Right Lower Lobe Pneumonia. Pt was seen and examined at bedside. No reported events overnight. Swelling, pain, and erythema in left elbow has decreased. Pt states that she was able to have 2 bowel movements last night and denies blood in them. Pt states since Rocha was discontinued yesterday, she feels she has a yeast infection and itching in her genital region. Pt is concerned that she has a house she has to close in [place], and prefers to continue medical treatment back with Dr. Genao in [facility] in [place], [place], but antiobiotic schedule does not coordinate with her plan, and she is requesting time to discuss with their plan to stay or be transferred. Constitutional: Denies: Chills, Fever, Night Sweats Eyes: Denies: Vision change ENT: Denies: Head Aches, Dysphagia Skin: Reports: Itching (in vaginal area) Pulmonary: Denies: Dyspnea, Cough Cardiovascular: Denies: Chest Pain, Palpitations, Edema, Lt Headedness Gastrointestinal: Denies: Nausea, Vomiting, Abdominal Pain, Constipation Genitourinary: Reports: Hematuria (minor blood when Rocha was removed that has since resolved), Denies: Dysuria Musculoskeletal: Denies: Arm Pain Psych: Reports: Mood Normal Objective Physical Examination General Exam: Positive: Alert, Cooperative, No Acute Distress Eye Exam: Positive: Conjunctiva & lids normal, EOMI ENT Exam: Positive: Atraumatic, Mucous membr. moist/pink Neck Exam: Positive: Supple, JVD (strong pulsating neck veins), Negative: Lymphadenopathy Chest Exam: Positive: Clear to auscultation Heart Exam: Positive: Rate Normal, Normal S1, Murmurs (systolic, loudest at 2nd intercostal space on left sternal border. Heart sounds loud in all 4 areas.) Abdomen Exam: Positive: Normal bowel sounds, Soft, Negative: Tenderness Extremity Exam: Positive: Normal pulses, Negative: Edema, Tenderness, Swelling Skin Exam: Positive: Other skin issue Neuro Exam: Positive: Normal Speech, Sensation Intact Psych Exam: Positive: Mental status NL, Mood NL, Oriented x 3 Assessment /Plan Assessment Staphylococcus aureus bacteremia -continue Nafcillin -PICC line inserted 11/30 for possible 4-6 weeks of antibiotics -Transthoracic echocardiogram was negative for vegetations, but transesophageal echocardiogram performed 11/29 revealed two vegetations on the mitral valve which appear small with severe mitral regurgitation -[facility] in [place] was contacted. They state there is no emergent need to transfer for MR valve replacement at this time; will reassess and touch base with hospital again. -Pt still unsure about plans to stay or seek treatment at more convenient facility in [place]. Patient Scheduling Coordinator consulted to help plan disposition and IV home antibiotics -Medical records of current stay faxed over to Dr. Nicci Uribe in [place], [place] today ( , ) Mild leukocytosis -Pt afebrile, vitals remain WNL. WBC of 10.7 possibly 2/2 to post-echo procedure inflammatory reaction. Monitor. Continue Nafcillin -New blood cultures tested today are pending. No growth after 48hrs on 11/28 cultures -CRP today elevated, but continuing to trend downwards -ESR today on the rise. Monitor Right lower lobe pneumonia -is suspected source of bacteremia, noted on today's 11/30 CXR -CRP still elevated but trending down as of 11/30/16 Acute kidney injury -Creatinine elevated at 1.66. Worsening kidney function -Nephrology consulted. Appreciate their assistance -Rocha catheter discontinued 11/29 -Renal ultrasound showed 9.[address] may be needed, but will hold off until impaired renal function improves Hypokalemia -repleted today Left Elbow Swelling -septic joint vs olecranon bursitis vs effusion vs gout -Ortho consulted, possible arthrocentesis. Appreciate their assistance -X-ray of elbow 11/29 showed no acute fracture, dislocation, or effusion. Elbow US was negative for DVT Transaminitis due to current acute illnesses -levels on the rise as of today. Monitor. -hepatitis panel negative on 11/24/16 Hypertension -bp controlled. Continue B-Juan -Metoprolol restarted 11/28 by ID History of brain AV malformation -s/p surgical repair in 1991 with stent placement in 2009 -on Phenobarbital for seizure prophylaxis -Continue aspirin Hypertrophic aortic stenosis of severe degree -plan to obtain cardiac record from [place] -B-juan started per ID 11/28/16 Dyslipidemia -Continue home atorvastatin Depression -continue home nortriptyline DVT prophylaxis -TEDs/SCD Plan/VTE VTE Prophylaxis Ordered?: Yes Plan/Urinary Catheter Reason for insertion/continuin: Acute obstruct/retention VS, I&O, 24H, Fishbone Vital Signs/I&O Vital Signs Date Time Temp Pulse Resp B/P (MAP) Pulse Ox O2 Delivery O2 Flow Rate FiO2 11/30/16 07:45 97.9 90 20 133/75 (94) 95 Room Air 11/29/16 16:15 2 I&O- Last 24 Hours up to 6 AM 11/30/16 06:00 Intake Total 1070 ml Output Total 1250 ml Balance -180 ml Laboratory Data 24H LABS Laboratory Tests 2 11/30/16 05:30: White Blood Count 10.7H, Red Blood Count 4.04, Hemoglobin 13.5, Hematocrit 39.4 , Mean Corpuscular Volume 97.4H, Mean Corpuscular Hemoglobin 33.4H, Mean Corpuscular Hemoglobin Concent 34.3, Red Cell Distribution Width 14.1, Platelet Count 231, Neutrophils (%) (Auto) 81.7H, Lymphocytes (%) (Auto) 8.0L, Monocytes (%) (Auto) 4.8, Eosinophils (%) (Auto) 3.1H, Basophils (%) (Auto) 0.5, Neutrophils # (Auto) 8.8H, Lymphocytes # (Auto) 1.1L, Monocytes # (Auto) 0.5, Eosinophils # (Auto) 0.3, Basophils # (Auto) 0.0, Large Unclassified Cells % 1.9 , Large Unclassified Cells # 0.2, Anion Gap 11, Glomerular Filtration Rate 32.5L , Blood Urea Nitrogen 24H, Creatinine 1.66H, Sodium Level 136, Potassium Level 3.4L, Chloride Level 105, Carbon Dioxide Level 20L, Calcium Level 7.8L, Aspartate Amino Transf (AST/SGOT) 125H, Alanine Aminotransferase (ALT/SGPT) 106H , Alkaline Phosphatase 182H, Total Bilirubin 1.0, Total Protein 5.8L, Albumin 1.7L, Magnesium Level 2.0, Albumin/Globulin Ratio 0.41L 11/30/16 06:51: Erythrocyte Sedimentation Rate 63H, C-Reactive Protein, Quantitative 11.60H CBC/BMP Laboratory Tests 11/30/16 05:30 Red Blood Count 4.04, Mean Corpuscular Volume 97.4 H, Mean Corpuscular Hemoglobin 33.4 H, Mean Corpuscular Hemoglobin Concent 34.3, Red Cell Distribution Width 14.1, Neutrophils (%) (Auto) 81.7 H, Lymphocytes (%) (Auto) 8.0 L, Monocytes (%) (Auto) 4.8, Eosinophils (%) (Auto) 3.1 H, Basophils (%) ( Auto) 0.5, Neutrophils # (Auto) 8.8 H, Lymphocytes # (Auto) 1.1 L, Monocytes # ( Auto) 0.5, Eosinophils # (Auto) 0.3, Basophils # (Auto) 0.0, Calcium Level 7.8 L , Aspartate Amino Transf (AST/SGOT) 125 H, Alanine Aminotransferase (ALT/SGPT) 106 H, Alkaline Phosphatase 182 H, Total Bilirubin 1.0, Total Protein 5.8 L, Albumin 1.7 L Microbiology Microbiology 11/30/16 Blood Culture, Received Pending 11/30/16 Blood Culture, Received Pending 11/28/16 Blood Culture - Preliminary, Resulted No Growth after 48 hours. All Specime... 11/28/16 Blood Culture - Preliminary, Resulted No Growth after 48 hours. All Specime... 11/24/16 Blood Culture - Final, Complete Staphylococcus Aureus 11/24/16 Blood Culture - Final, Complete Staphylococcus Aureus 11/25/16 Gastrointestinal Tract Panel (PCR) - Final, Complete 11/25/16 Stool Occult Blood (MAEVE) - Final, Complete 11/24/16 Respiratory Virus Panel (PCR) (MAEVE) - Final, Complete 11/24/16 Influenza Virus Type A Antigen - Final, Complete 11/24/16 Influenza Virus Type B Antigen - Final, Complete 11/24/16 Urine Culture - Final, Complete GME ATTESTATION GME ATTESTATION My preceptor for this patient encounter was physically present in the building during the encounter and was fully available. As needed, all aspects of the patient interview, examination, medical decision making process, and medical care plan development were reviewed and approved by the preceptor. Preceptor is aware and concurs with the plan as stated in the body of this note and will attest to such by his/her cosignature. Attending Note Attending Note I have independently interviewed and examined this patient at the bedside, and discussed the management plan with my Resident Physician, Dr. Clancy, as documented above. ELFEGO CLANCY DO Nov 30, 2016 10:48 LORI MCKEON MD Dec 01, 2016 08:39
[2016-11-30 23:59] VITALS: BP 126/68
[2016-12-01 04:17] VITALS: BP 130/61
[2016-12-01] MEDS: MICONAZOLE-7 VAGINAL 2% CREAM 47.7 GM PV SCH ×2 (04:38→20:33)
[2016-12-01] MEDS: NAFCILLIN SOD 2 GM in D5W MINI-BAG PLUS 100 ML IV SCH ×2 (04:39→09:11)
[2016-12-01] MEDS: SODIUM CHLORIDE 0.9% INJ 10 ML SYR IV SCH ×2 (05:59→17:59)
[2016-12-01 06:53] LABS: BASO % 0.3 % (0.0-1.0); EOS # 0.4 K/mm3 (0.0-0.50); EOS % 3.2 % (0.0-3.0); LARGE UNSTAINED CELL # 0.2 K/mm3 (0.0-0.4); LARGE UNSTAINED CELL % 1.3 % (0.0-4.0); LYMPH % 7.5 % (24.0-44.0); MEAN CORPUSCULAR HEMOGLOBIN 31.9 pg (27.0-33.0); MEAN CORPUSCULAR HGB CONC 32.2 g/dl (32.0-36.5); MEAN CORPUSCULAR VOLUME 98.9 fl (80.0-96.0); MONO # 0.5 K/mm3 (0.0-0.8); MONO % 3.9 % (0.0-5.0); NEUTROPHILS % 83.8 % (36.0-66.0); PLATELET COUNT, AUTOMATED 262 k/mm3 (150-450); RED CELL DISTRIBUTION WIDTH 14.1 % (11.5-14.5); WHITE BLOOD COUNT 11.9 K/mm3 (4.0-10.0)
[2016-12-01 07:13] LABS: ALBUMIN 1.7 GM/DL (3.2-5.2); ALBUMIN/GLOBULIN RATIO 0.5 (1.00-1.93); CALCIUM LEVEL 7.1 MG/DL (8.8-10.2); CREATININE FOR GFR 1.61 MG/DL (0.55-1.02); GLOMERULAR FILTRATION RATE 33.7 (>39); POTASSIUM SERUM 3.4 MEQ/L (3.5-5.1); TOTAL PROTEIN 5.1 GM/DL (6.4-8.2)
[2016-12-01 08:00] VITALS: BP 120/59
[2016-12-01] MEDS: LACTOBACILLUS ACIDOPHILUS CAP (BACID) PO SCH ×3 (08:00→17:51)
[2016-12-01] MEDS ORDERED: POTASSIUM CHLORIDE 10 MEQ SR TABLET PO SCH (09:00)
[2016-12-01] MEDS: POTASSIUM CHLORIDE 10 MEQ SR TABLET PO SCH ×2 (09:00→20:31)
[2016-12-01 10:21] LABS: ERYTHROCYTE SEDIMENTATION RATE 67 mm/hr (0-30)
--- NOTE | 2016-12-01 11:11 | IPN ---
DATE: 11/30/2016 INFECTIOUS DISEASE PROGRESS NOTE Osmar is doing much better. She states that her elbow pain has improved. She has had no fever or chills. Her major complaint is currently that she has diarrhea. No abdominal pain, nausea or vomiting. Her fever has resolved. She was seen by orthopedic surgery, Dr. Hebert, who did not feel that there was any need for surgical intervention, that she had developed olecranon bursitis of the left elbow, now resolving. Maximum temperature (T max) 99.8, pulse 87, respirations 18, blood pressure 129/63, oxygen saturation (O2 sat) 94% on room air. Heart: Normal S1, S2 with a holosystolic ejection murmur 3/6 at the left upper sternal border. Lungs are clear. No wheezes, rales or rhonchi. Abdomen: Soft, nontender. No hepatosplenomegaly. Back: No costovertebral angle or lumbosacral tenderness. Extremities: Trace edema. No clubbing or cyanosis. No rashes. Left elbow range of motion is normal. Mild olecranon bursitis with mild erythema and redness. LABORATORY DATA: White count is 10.7, hemoglobin 13.5, hematocrit 39.4, platelets 231, 81% neutrophils, 8% lymphocytes, 5% monocytes. Sedimentation rate 63. Sodium 136, potassium 3.4, chloride 105, bicarbonate 20, BUN 24, creatinine 1.6, glucose 123, calcium 7.8, total bilirubin 1, AST 125, ALT 106. On admission AST was 371. CRP 11.6 down from 23. Repeat blood cultures were done on 11/28/2016 and two sets were negative and on 11/30/2016 are still pending. IMAGING STUDIES: Chest x-ray done on 11/30/2016 shows chronic stable changes with superimposed right lower lobe atelectasis and small pleural effusion. No pneumothorax. Peripherally inserted central catheter (PICC) line was placed. ECHOCARDIOGRAM: Transesophageal echocardiogram done by Dr. Werner shows two vegetations of the mitral valve, which appear to be small, moderate mitral annular calcification, severe mitral regurgitation with no flail segment or broken chorda. Left ventricular hypertrophy, at least moderate, hyperdynamic left ventricle, moderate aortic sclerosis, mild aortic regurgitation. IMPRESSION: 1. Mitral valve endocarditis with culture positive for methicillin-sensitive Staphylococcus aureus (MSSA), on intravenous (IV) nafcillin, doing much better. Fever has resolved, generalized myalgias have markedly improved. 2. Diarrhea. Most likely antibiotic associated. The patient does not have fevers, nausea, vomiting or abdominal pain to suggest Clostridium difficile (C diff), but if persists, may consider repeating a stool tomorrow. The patient was encouraged to take probiotic and eat yogurt. 3. Acute kidney injury. Creatinine has slightly increased again. Will continue to monitor. She has a baseline normal kidney function. 4. Olecranon bursitis of the left elbow. On IV nafcillin, improving. No need for surgical intervention. PLAN: Consult [facility] for home IV antibiotic. The patient lives on [facility] until the end of December. 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 Encourage ambulation. Hopefully the patient could be discharged in the next 2-3 days. Will consult the infusion [facility] tomorrow
--- NOTE | 2016-12-01 11:11 | IPN ---
DATE: 11/30/2016 SUBJECTIVE: The patient is seen this morning at the bedside. She had a transesophageal echocardiogram (SILAS) done yesterday that showed mitral valve endocarditis with severe mitral regurgitation. The patient is considering whether to stay in this area for six weeks of antibiotics or to return back to [place]. There is no plan for mitral valve replacement at this time. She remains afebrile on nafcillin. She is tolerating oral intake. Her IV fluids were discontinued yesterday. She had a mild decompensation in renal function. Her Rocha catheter was removed and she reports she is voiding without issue. REVIEW OF SYSTEMS: Negative for headache, chest pain, shortness of breath at rest, abdominal pain, nausea, vomiting, diarrhea. Positive for pedal edema. Remainder of review of systems is negative. VITAL SIGNS: Temperature 97.9, pulse 90, respiratory rate 20, blood pressure 133/75, saturating 95% on room air. INTAKE AND OUTPUT: Urine output 1650 mL. Weight in the bed scale today 84.8 kg. PHYSICAL EXAMINATION: GENERAL: The patient is sitting in a chair. She is awake, alert, oriented times four in no acute distress. HEAD AND NECK: Extraocular muscles are intact. Mucous membranes are moist. Neck shows jugular venous pulsations. CARDIAC: S1, S2. Systolic murmur. 2+ radial pulse. Pedal edema in the bilateral feet. RESPIRATORY: Diminished air entry at lung bases, otherwise clear. ABDOMEN: Soft. Obese. Nontender. EXTREMITIES: Pedal edema and left upper extremity edema. GENITOURINARY: No Rocha catheter. NEUROLOGIC: No focal deficit. Appropriately interactive and conversational. PSYCHIATRIC: Appropriate mood and affect. LABS: White count 10.7, hemoglobin 13.5, and platelets 231. Erythrocyte sedimentation rate 63. Sodium 136, potassium 3.4, bicarbonate 20, creatinine 1.6, BUN 24. LFTs up trending. AST 125. ALT 106. CRP 11, improved from prior. Corrected calcium 9.5. C3 135. C4 6.2. Microbiology: Blood cultures 11/28/2016 no growth for 48 hours. IMAGING: Chest x-ray, 11/30/2016, right lower lobe atelectasis and small pleural effusion. INPATIENT MEDICATIONS: The patient's atorvastatin was held by myself as her LFTs have slightly trended up. She continues on IV nafcillin. She received a one time dose of potassium. Remainder of medications are unchanged from prior. 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 1. Acute kidney injury in the setting of infective endocarditis suggestive of glomerulonephritis. Urine with blood and protein. C4 found to be deplete. The patient has been stopped off of IV fluids since yesterday. Given her history of hypertrophic obstructive cardiomyopathy and risk of congestive heart failure, fluids were stopped. Her renal function has been fairly stable the past three or four days with a slight decompensation today. Her electrolytes are otherwise acceptable at this time as is her current volume status. As she continues treatment for her MSSA bacteremia infective endocarditis, we would continue to monitor her renal function. 2. Elevated transaminases. The patient's statin is held. 3. Staphylococcus aureus bacteremia with mitral valve vegetation. Plan for peripherally inserted central catheter (PICC) line today for continuation of 4-6 week course of antibiotics. The patient is making the decision about where she would like to complete her antibiotic therapy. 4. Episode of urinary retention. We will repeat a bladder scan on the patient. 5. Large cyst on left kidney on ultrasound with reported minimal residual renal parenchyma. Consider nuclear renal scan as an outpatient to see how much function the left kidney is providing with the large dominating cyst. 6. Thrombocytopenia. The patient's platelet count continues to improve.
[2016-12-01 12:00] VITALS: BP 126/68
[2016-12-01] MEDS ORDERED: KCL 20MEQ IN D5W 1000ML 1,000 ML IV SCH (14:00)
--- NOTE | 2016-12-01 14:18 | REP ---
Procedure: PICC line insertion with Itzel-Zaire The procedure was performed under the direct supervision of Dr. Knight. The risks and benefits of the procedure were explained to the patient and informed consent was obtained. The right basilic vein was localized using ultrasound guidance. The skin was prepped and draped in a sterile fashion. 2% lidocaine was used as a local anesthetic. Using ultrasound guidance the basilic vein was cannulated and a 0.018 guidewire was inserted and advanced to the SVC using fluoroscopic guidance. The needle was removed and a 4.5 Gabonese dilator and peel-away sheath was inserted over the guide wire. A 4.5 Gabonese single lumen catheter was cut to length of 35 cm. The dilator was removed and the catheter was inserted over the guide wire with the tip ending in the SVC. The peel-away sheath was removed and the catheter was flushed with heparinized saline as per Hospital protocol. The catheter was affixed to the skin and a sterile dressing was applied. The the patient tolerated the procedure well and there were no immediate complications. 0.1 minutes of fluoro time was utilized for this procedure. Reviewed by LOPEZ Bone 11/30/2016 04:14 PSigned by Ervin Knight MD 12/01/2016 02:09 P
--- NOTE | 2016-12-01 14:49 | REP ---
NUCLEAR RENAL SCINTIGRAPHY WITH DIFFERENTIAL FLOW AND FUNCTION ANALYSIS: HISTORY: Acute kidney insufficiency of endocarditis. Dominant left renal cyst on ultrasound. TECHNIQUE: 8.6 mCi technetium 99m MAG 3 is injected and posterior flow and excretory phase images are acquired. Renal cortical regions of interest are acquired and renal function analysis performed. FINDINGS: Posterior flow study shows symmetric perfusion of the kidneys bilaterally. The left kidney is quite a bit smaller than the right and there is deformity of the lower pole and some malrotation of the left renal moiety as a result of a large cyst seen on CT study November 24, 2016. There is symmetric labeling of the intrarenal collecting systems and ureters. No hydronephrosis is seen. Differential renal function analysis is asymmetric with 34% of overall renal cortical counts coming from the left kidney and 66% coming from the right kidney. [id number] activity is delayed bilaterally with bilaterally rising renal excretion curves. Time-to-max activity is 29 minutes on the left and 29 minutes on the right. [id number] max activity is therefore immeasurable. Pre and postvoid images are unremarkable. IMPRESSION: Rising time activity renal excretion curves consistent with global impairment of renal function. Symmetric flow. No evidence of obstructive uropathy. Deformity and some displacement of the left kidney due to the large cyst seen. Signed by Ervin Knight MD 12/01/2016 04:37 P
--- NOTE | 2016-12-01 14:57 | REP ---
Clinical: Endocarditis and abnormal liver function tests . Technique: Allen scale ultrasound using curved array transducer. Findings: The liver and pancreas are normal in contour, size, and echogenicity without focal hepatic or pancreatic lesions identified. The gallbladder demonstrates a "LEONARDO" sign (wall - echo - shadow) sign due to contracted state around innumerable gallstones. A positive sonographic Epperson's sign was elicited and small amount of pericholecystic fluid is suggested. The common bile duct is mildly dilated measuring 8.4 mm diameter. Right kidney measures 12.0 x 5.9 x 4.7 cm without hydronephrosis and includes bilobed cyst measuring 5.4 x 3.5 x 2.5 cm. Impression: 1. Contracted gallbladder with gallstones, positive sonographic Epperson's sign, and suspected trace amount of pericholecystic fluid. Mild dilatation to the common bile duct is also appreciated and findings cannot exclude acute cholecystitis. 2. Bilobed right renal cyst. Signed by Constantino Bright MD 12/01/2016 02:48 P
[2016-12-01] MEDS: LOMOTIL 2.5MG/0.025MG TABLET PO PRN (15:02)
--- NOTE | 2016-12-01 15:04 | IPN ---
DATE: 12/01/2016 SUBJECTIVE: The patient is seen this morning at the bedside. She complains of frequent large volume watery diarrhea, three episodes this morning and five episodes yesterday. She had a stool Clostridium (C.) difficile that was sent off and came back negative. She is nothing by mouth currently for liver ultrasound. She complains of thirst. She has elected to have the first two weeks of her treatment in [place] and the remainder of her treatment in [place]. REVIEW OF SYSTEMS: Negative for headache, chest pain, palpitations, shortness of breath at rest, nausea, vomiting, dysuria. Positive for recurrent watery diarrhea and nothing by mouth status. VITAL SIGNS: Afebrile. Temperature 97.8, pulse 82, respiratory rate 18, blood pressure 120/59, saturating 97 to 98% on room air. INTAKE AND OUTPUT: Urine output yesterday was 725 mL. Weight on the bed scale today decreased from prior 83.8 kg. PHYSICAL EXAMINATION: GENERAL: Awake, alert and oriented. In no acute distress. HEAD AND NECK: Extraocular muscles are intact. Moist mucous membranes. Jugular venous pulsations are present. CARDIAC: S1, S2. Systolic murmur. LUNGS: Clear to auscultation bilaterally. ABDOMEN: Soft. Obese. Nontender. EXTREMITIES: Lower extremities with trace edema to the mid molina. Left upper extremity with swelling and mild erythema at the elbow. LABS: White count 11.9, hemoglobin 11.8, platelets 262. Sodium 139, potassium 3.4, bicarbonate 21, BUN 21, creatinine 1.6 and 1.6 yesterday, AST 105, ALT 98, magnesium 2.0, albumin 1.7, corrected calcium 8.8, C3 135, C4 6.2. Microbiology: C difficile PCR negative. Blood culture from 11/30/2016 showed no growth for 24 hours. IMAGING: Chest x-ray, 11/30/2016, superimposed right lower lobe atelectasis. INPATIENT MEDICATIONS: Reviewed. Her nafcillin was discontinued by Dr. Chau and patient is now on cefazolin 2 grams IV every 12 hours. She is started on D5W with KCL at 50 mL an hour. She received a dose of potassium. The remainder of her medications are unchanged from prior. ASSESSMENT AND PLAN: 1. Acute kidney injury in the setting of infective endocarditis suggestive of glomerulonephritis. Urine with blood and protein. C4 found to be deplete. The patient is currently having profuse watery diarrhea, likely antibiotic related. Her antibiotic regimen has been changed by Dr. Chau. She is nothing by mouth today for liver ultrasound. I will give her D5W with 20 mEq of potassium at 50 mL an hour until her diarrhea abates and she is back on an oral diet. We will obtain a renal scan for flow and function. We will also obtain a bladder scan to make sure that the patient is not retaining urine again. 2. Elevated transaminases. The patient's statin is held. She is pending liver ultrasound. 3. Staphylococcus aureus bacteremia with mitral valve vegetation. Patient received a peripherally inserted central catheter (PICC) line to complete a course of antibiotics. She will be put on renally dosed cefazolin, as per Dr. Chau. 4. Episode of urinary retention requiring Rocha catheter. Bladder scan is pending. Rocha has been discontinued. 5. Thrombocytopenia on presentation. The patient's platelet count has recovered. Plan of care discussed with Dr. Chau and Dr. Bailey.
[2016-12-01 16:00] VITALS: BP 124/70
--- NOTE | 2016-12-01 18:50 | IPNPDOC ---
Subjective Date Seen The patient was seen on 12/01/16. Subjective Chief Complaint/HPI The patient is a 71-year-old female admitted with a reason for visit of Right Lower Lobe Pneumonia. Pt was seen and examined resting in chair, with in room. Pt has been NPO in preparation for her liver ultrasound today. Pt has developed diarrhea that is negative for C. Diff. Reports about 4 BMs today, and 4 yesterday. Unsure if stools were bloody. PICC line was placed yesterday. Pt and have decided to continue antibiotics through PICC line in outpatient setting, and plan to stay in their temporary home in [facility] and visit [facility] on Fridays to obtain weekly medication packets. Pt also interested in obtaining a walker upon discharge, and does not want to participate in physical therapy because she feels too weak. Couple also inquiring about which medical supplies they should buy upon discharge. Pt states her elbow feels the same as yesterday. No other complaints. Constitutional: Denies: Chills, Fever, Night Sweats ENT: Denies: Head Aches, Dysphagia Skin: Reports: Itching (improving from yesterday with cream) Pulmonary: Denies: Dyspnea Cardiovascular: Denies: Chest Pain, Edema, Lt Headedness Gastrointestinal: Reports: Diarrhea, Denies: Nausea, Vomiting, Constipation Genitourinary: Denies: Dysuria, Hematuria Objective Physical Examination General Exam: Positive: Alert, Cooperative, No Acute Distress Eye Exam: Positive: Conjunctiva & lids normal, EOMI ENT Exam: Positive: Atraumatic, Mucous membr. moist/pink Neck Exam: Positive: Supple, JVD (visible pulsations) Chest Exam: Positive: Clear to auscultation, Normal air movement Heart Exam: Positive: Rate Normal, Normal S1, Murmurs (systolic murmur heard throughout, loudest at 2nd intercostal on the left) Abdomen Exam: Positive: BS Hyperactive, Soft, Negative: Tenderness Extremity Exam: Positive: Normal pulses, Negative: Edema Skin Exam: Positive: Other skin issue Neuro Exam: Positive: Normal Speech, Sensation Intact Psych Exam: Positive: Mental status NL, Mood NL, Oriented x 3 Assessment /Plan Assessment Staphylococcus aureus bacteremia -discontinued Nafcillin -started cefazolin q12h IV -PICC line inserted 11/30 for possible 4-6 weeks of antibiotics -Transthoracic echocardiogram was negative for vegetations, but transesophageal echocardiogram performed 11/29 revealed two vegetations on the mitral valve which appear small with severe mitral regurgitation -[facility] in [place] was contacted. They state there is no emergent need to transfer for MR valve replacement at this time; will reassess and touch base with hospital again. -Pt still unsure about plans to stay or seek treatment at more convenient facility in [place]. Labor Relations Teacher consulted to help plan disposition and IV home antibiotics -Medical records of current stay faxed over to Dr. Nicci Uribe in [place], [place] today ( , ) Mild leukocytosis -Pt afebrile, vitals remain WNL. WBC of 11.9 possibly 2/2 to post-echo procedure inflammatory reaction. Monitor. Continue Nafcillin -New blood cultures show no growth after 24hrs. No growth after 48hrs on 11/28 cultures -CRP from 11/30 elevated, but continuing to trend downwards -ESR elevated and trending up. Monitor Right lower lobe pneumonia -is suspected source of bacteremia, noted on CXR from 11/30 -CRP still elevated but trending down as of 11/30/16 Acute kidney injury -Creatinine elevated at 1.61. Worsening kidney function -Nephrology consulted. Appreciate their assistance -Rocha catheter discontinued 11/29 -Renal ultrasound showed 9.[address] may be needed, but will hold off until impaired renal function improves -kidney scan order today to determine function/flow; results pending -C4 found to be depleted Diarrhea -stool sample tested for C. Diff; results negative -stool sample for occult blood taken, results pending Fungal Vaginal Rash -miconazole cream given for rash in vaginal area Hypokalemia -potassium level is low. Will supplement. Left Elbow Swelling -septic joint vs olecranon bursitis vs effusion vs gout -Ortho consulted, possible arthrocentesis. Appreciate their assistance -X-ray of elbow 11/29 showed no acute fracture, dislocation, or effusion. Elbow US was negative for DVT Transaminitis due to current acute illnesses -levels elevated but trending down as of today. Liver US ordered, results pending. -hepatitis panel negative on 11/24/16 Hypertension -bp controlled. Continue B-Juan -Metoprolol restarted 11/28 by ID History of brain AV malformation -s/p surgical repair in 1991 with stent placement in 2009 -on Phenobarbital for seizure prophylaxis -Continue aspirin Hypertrophic aortic stenosis of severe degree -plan to obtain cardiac record from [place] -B-juan started per ID 11/28/16 Dyslipidemia -Continue home atorvastatin Depression -continue home nortriptyline DVT prophylaxis -TEDs/SCD Plan/VTE VTE Prophylaxis Ordered?: Yes Plan/Urinary Catheter Reason for insertion/continuin: Acute obstruct/retention VS, I&O, 24H, Fishbone Vital Signs/I&O Vital Signs Date Time Temp Pulse Resp B/P (MAP) Pulse Ox O2 Delivery O2 Flow Rate FiO2 12/01/16 12:00 98.1 86 18 126/68 (87) 98 Room Air 11/29/16 16:15 2 I&O- Last 24 Hours up to 6 AM 12/01/16 05:59 Intake Total 1830 ml Output Total 625 ml Balance 1205 ml Laboratory Data 24H LABS Laboratory Tests 2 12/01/16 04:37: Urine Random Creatinine 37.3, Urine Random Total Protein 19.8H 12/01/16 05:58: White Blood Count 11.9H, Red Blood Count 3.71L, Hemoglobin 11.8L, Hematocrit 36.6, Mean Corpuscular Volume 98.9H, Mean Corpuscular Hemoglobin 31.9, Mean Corpuscular Hemoglobin Concent 32.2, Red Cell Distribution Width 14.1, Platelet Count 262, Neutrophils (%) (Auto) 83.8H, Lymphocytes (%) (Auto) 7.5L, Monocytes (%) (Auto) 3.9, Eosinophils (%) (Auto) 3.2H, Basophils (%) (Auto) 0.3, Neutrophils # (Auto) 10.0H, Lymphocytes # (Auto) 1.0L, Monocytes # (Auto) 0.5, Eosinophils # (Auto) 0.4, Basophils # (Auto) 0.0, Large Unclassified Cells % 1.3 , Large Unclassified Cells # 0.2, Erythrocyte Sedimentation Rate 67H, Anion Gap 12, Glomerular Filtration Rate 33.7L, Blood Urea Nitrogen 21H, Creatinine 1.61H , Sodium Level 139, Potassium Level 3.4L, Chloride Level 106, Carbon Dioxide Level 21, Calcium Level 7.1L, Aspartate Amino Transf (AST/SGOT) 105H, Alanine Aminotransferase (ALT/SGPT) 98H, Alkaline Phosphatase 162H, Total Bilirubin 1.0 , Total Protein 5.1L, Albumin 1.7L, Magnesium Level 2.0, Albumin/Globulin Ratio 0.50L CBC/BMP Laboratory Tests 11/30/16 23:52 12/01/16 05:58 Red Blood Count 3.71 L, Mean Corpuscular Volume 98.9 H, Mean Corpuscular Hemoglobin 31.9, Mean Corpuscular Hemoglobin Concent 32.2, Red Cell Distribution Width 14.1, Neutrophils (%) (Auto) 83.8 H, Lymphocytes (%) (Auto) 7.5 L, Monocytes (%) (Auto) 3.9, Eosinophils (%) (Auto) 3.2 H, Basophils (%) ( Auto) 0.3, Neutrophils # (Auto) 10.0 H, Lymphocytes # (Auto) 1.0 L, Monocytes # (Auto) 0.5, Eosinophils # (Auto) 0.4, Basophils # (Auto) 0.0, Calcium Level 7.1 L, Aspartate Amino Transf (AST/SGOT) 105 H, Alanine Aminotransferase (ALT/SGPT) 98 H, Alkaline Phosphatase 162 H, Total Bilirubin 1.0, Total Protein 5.1 L, Albumin 1.7 L Microbiology Microbiology 11/30/16 Blood Culture - Preliminary, Resulted No growth after 24 hours . All specim... 11/30/16 Blood Culture - Preliminary, Resulted No growth after 24 hours . All specim... 11/28/16 Blood Culture - Preliminary, Resulted No Growth after 72 hours. All specime... 11/28/16 Blood Culture - Preliminary, Resulted No Growth after 72 hours. All specime... 11/24/16 Blood Culture - Final, Complete Staphylococcus Aureus 11/24/16 Blood Culture - Final, Complete Staphylococcus Aureus 12/01/16 Clostridium difficile (PCR) - Final, Complete 11/25/16 Gastrointestinal Tract Panel (PCR) - Final, Complete 11/25/16 Stool Occult Blood (MAEVE) - Final, Complete 11/24/16 Respiratory Virus Panel (PCR) (MAEVE) - Final, Complete 11/24/16 Influenza Virus Type A Antigen - Final, Complete 11/24/16 Influenza Virus Type B Antigen - Final, Complete 11/24/16 Urine Culture - Final, Complete GME ATTESTATION GME ATTESTATION My preceptor for this patient encounter was physically present in the building during the encounter and was fully available. As needed, all aspects of the patient interview, examination, medical decision making process, and medical care plan development were reviewed and approved by the preceptor. Preceptor is aware and concurs with the plan as stated in the body of this note and will attest to such by his/her cosignature. ELFEGO ARANA DO Dec 01, 2016 15:01
[2016-12-01 20:00] VITALS: BP 115/63
[2016-12-01] MEDS: PHENobarbital 30 MG TAB PO SCH (20:30)
[2016-12-01] MEDS: PANTOPRAZOLE 40MG TAB (PROTONIX) PO SCH (20:30)
[2016-12-01] MEDS: NORTRIPTYLINE 25 MG CAP PO SCH (20:31)
[2016-12-01] MEDS: ASPIRIN ENTERIC 325 MG TAB PO SCH (20:31)
[2016-12-01] MEDS: METOPROLOL SUCC *XL* 25MG TAB (TopROL *XL*) PO SCH (20:32)
[2016-12-02] VITALS (7 sets, daily range): BP systolic 125–167; BP diastolic 63–87
[2016-12-02] MEDS: CALCIUM CARBONATE 500 MG CHEW U/D PO PRN ×2 (03:29→20:20)
[2016-12-02] MEDS: SODIUM CHLORIDE 0.9% INJ 10 ML SYR IV SCH ×2 (05:46→17:20)
[2016-12-02 06:12] LABS: BASO % 0.2 % (0.0-1.0); EOS # 0.3 K/mm3 (0.0-0.50); EOS % 2.5 % (0.0-3.0); LARGE UNSTAINED CELL # 0.1 K/mm3 (0.0-0.4); LARGE UNSTAINED CELL % 1.2 % (0.0-4.0); LYMPH # 0.8 K/mm3 (1.5-4.5); LYMPH % 6.2 % (24.0-44.0); MEAN CORPUSCULAR HEMOGLOBIN 32.4 pg (27.0-33.0); MEAN CORPUSCULAR HGB CONC 33.2 g/dl (32.0-36.5); MEAN CORPUSCULAR VOLUME 97.6 fl (80.0-96.0); MONO # 0.4 K/mm3 (0.0-0.8); MONO % 3.4 % (0.0-5.0); NEUTROPHILS # 10.5 K/mm3 (1.8-7.7); NEUTROPHILS % 86.4 % (36.0-66.0); PLATELET COUNT, AUTOMATED 301 k/mm3 (150-450); RED CELL DISTRIBUTION WIDTH 13.9 % (11.5-14.5); WHITE BLOOD COUNT 12.2 K/mm3 (4.0-10.0)
[2016-12-02 06:35] LABS: ALBUMIN 1.9 GM/DL (3.2-5.2); ALBUMIN/GLOBULIN RATIO 0.56 (1.00-1.93); BILIRUBIN,TOTAL 0.5 MG/DL (0.2-1.0); CALCIUM LEVEL 7.7 MG/DL (8.8-10.2); CREATININE FOR GFR 1.6 MG/DL (0.55-1.02); GLOMERULAR FILTRATION RATE 33.9 (>39); MAGNESIUM LEVEL 2.1 MG/DL (1.8-2.4); TOTAL PROTEIN 5.3 GM/DL (6.4-8.2)
[2016-12-02] MEDS: LACTOBACILLUS ACIDOPHILUS CAP (BACID) PO SCH ×3 (08:23→17:21)
[2016-12-02] MEDS: LOMOTIL 2.5MG/0.025MG TABLET PO PRN (12:28)
--- NOTE | 2016-12-02 17:10 | IPN ---
DATE: 12/02/2016 SUBJECTIVE: The patient is seen this morning at the bedside. She is going to receive physical therapy in a short while. She states she had two episodes of diarrhea this morning, although she had none overnight. She is tolerating oral intake well. I reviewed her renal scan with her. Her intravenous (IV) fluids have been discontinued this morning. REVIEW OF SYSTEMS: Negative for headache, chest pain, lightheadedness, palpitations, shortness of breath, nausea, vomiting, dysuria. Positive for two episodes of watery diarrhea this morning with no reported episodes overnight. Remainder of review of systems is negative. VITAL SIGNS: Afebrile, 98.9, pulse 91, respiratory rate 19, blood pressure 136/73, saturating 95% on room air. Urine output yesterday 1400 mL. Weight in the bed scale today 85 kg. General: in bed, comfortable, no distress HEENT: eomi, MMM neck: jugular venous pulsation cardiac: systolic mumur, trace-1+ lower ext edema resp- bilateral air entry, on room air, no resp distress abdnomen- soft , non tender ext- 1+ edema LE, PICC RUE neuro - no focal deficit LABORATORY DATA: White count slowly increasing, 12.2 today, hemoglobin 11.6, platelet count 301. Sodium 138, potassium 4.0, bicarbonate 22, creatinine 1.6, unchanged from prior. Glucose 122, corrected calcium 8.9, magnesium 2.1. Liver function tests (LFTs) downtrending. Urine protein to creatinine ration 500 mg. C4 is low. C3 and CH50 are normal. Microbiology: Blood cultures November 30: No growth for 48 hours. Blood cultures December 02: No growth for 72 hours. IMAGING: Renal scan December 01: Symmetric flow. No evidence of obstructive uropathy. Deformity and some displacement of left kidney due to large cyst. Global impairment of renal function. Differential renal function analysis is asymmetric with 34% from the left kidney and 66% from the right kidney. Pre and postvoid images are unremarkable. MEDICATIONS: Patient remains on cefazolin 2 grams intravenous (IV) every 12. I have discontinued her D5W with potassium. Remainder of her medications are unchanged from prior. PLAN: 1. Acute kidney injury in the setting of infective endocarditis suggestive of glomerulonephritis, 500 mg proteinuria, C4 deplete. Baseline creatinine 0.8. After her antibiotic was changed from nafcillin and cefazolin, the patient's diarrhea has improved. She reports two watery episodes this morning and none overnight. She is tolerating oral diet. I have discontinued her D5W with potassium. Renal scan did show asymmetric function with 35% from the left kidney and 65% from the right kidney without any obstructive uropathy. She did not have significant white blood cells (WBC) in the urine to suggest an interstitial nephritis. She does have some increasing lower extremity edema as compared to prior, and I see no reason to continue her on any IV fluids at this time. 2. Elevated transaminases. The patient's statin is on hold. Her LFTs have improved. Liver ultrasound did now show any significant hepatic findings. She did have a contracted gallbladder with gallstones. 3. Staphylococcus aureus bacteremia. Patient has a peripherally inserted central catheter (PICC) line in place. She continues on every 12 hour cefazolin. A discharge plan is in progress regarding her outpatient completion of antibiotic course. 4. Transesophageal echocardiogram (SILAS) with mitral valve vegetation. 5. Diarrhea, most likely antibiotic associated. Has been decreasing. Patient is tolerating oral diet. Hold off on any IV fluids at this time. MTDD
[2016-12-02] MEDS: NORTRIPTYLINE 25 MG CAP PO SCH (20:19)
[2016-12-02] MEDS: ASPIRIN ENTERIC 325 MG TAB PO SCH (20:20)
[2016-12-02] MEDS: PANTOPRAZOLE 40MG TAB (PROTONIX) PO SCH (20:20)
[2016-12-02] MEDS: METOPROLOL SUCC *XL* 25MG TAB (TopROL *XL*) PO SCH (20:20)
[2016-12-02] MEDS: MICONAZOLE-7 VAGINAL 2% CREAM 47.7 GM PV SCH (20:21)
[2016-12-02] MEDS: PHENobarbital 30 MG TAB PO SCH (20:24)
--- NOTE | 2016-12-02 22:31 | IPN ---
DATE: 12/01/2016 SUBJECTIVE: The patient is doing very well. She states that overall she has no complaints except for diarrhea. No low back pain. Elbow pain has markedly improved. She denies any chest pain or shortness of breath. No nausea, vomiting or abdominal pain, just this diarrhea that has been a nuisance. Just this morning she had to go three times. OBJECTIVE: VITAL SIGNS: Temperature is 98.4, pulse 91, respirations 20, blood pressure 115/63, O2 saturation 97% on room air. HEART: Normal S1, S2 with a systolic ejection murmur 2/6 at the left upper sternal border. LUNGS: Clear. No wheezes, rales or rhonchi. ABDOMEN: Soft, nontender. No hepatosplenomegaly. EXTREMITIES: Trace edema. Left elbow olecranon bursitis mildly erythematous and mildly tender. No limitation of range of motion. LABORATORY DATA: White count 11.9, hemoglobin 11.8, hematocrit 36.6, platelets 262, 84% neutrophils, 7% lymphocytes. ESR 67. Sodium 139, potassium 3.4, chloride 106, bicarb 21, BUN 21, creatinine 1.6, glucose 121, calcium 7.1, magnesium two, AST 105, ALT 98, alkaline phosphatase 162. CRP 11.6 down from 23.2. MICROBIOLOGY: Blood cultures on 11/30, no growth. Clostridium (C.) difficile 12/01 were negative. IMPRESSION: 1. Acute endocarditis of the mitral valve with a culture positive for methicillin-sensitive Staphylococcus aureus (MSSA), on intravenous (IV) nafcillin, having severe diarrhea and hypokalemia, with negative stool for Clostridium (C.) difficile. The patient will be switched to cefazolin 2 grams IV every 12 hours, corrected for acute kidney injury and glomerular filtration rate (GFR) of 33. 2. Left elbow bursitis on IV nafcillin, doing better. 3. Acute kidney injury. Creatinine currently at 1.6, stable. Will continue to monitor GFR 34. PLAN: Consult [facility] for home IV antibiotic. The patient could be discharged home on Sunday on cefazolin 2 grams IV every 12 hours until 01/09, total of six weeks of antibiotic. Monitor blood work including complete blood count (CBC), basic C-reactive protein (CRP), sedimentation rate weekly. The patient will have to meet the infusion company in the [facility] as they [place] on the [place] on [facility], to have her peripherally inserted central catheter (PICC) line changed and blood work done weekly. This will be arranged through the [facility] and the infusion company, [employer], was present from the infusion company and did the teaching regarding her IV antibiotic.
[2016-12-03 04:00] VITALS: BP 129/70
[2016-12-03] MEDS: SODIUM CHLORIDE 0.9% INJ 10 ML SYR IV SCH ×2 (05:04→18:46)
[2016-12-03 05:22] LABS: BASO % 0.3 % (0.0-1.0); EOS # 0.3 K/mm3 (0.0-0.50); EOS % 2.4 % (0.0-3.0); LARGE UNSTAINED CELL # 0.2 K/mm3 (0.0-0.4); LARGE UNSTAINED CELL % 1.3 % (0.0-4.0); LYMPH # 0.8 K/mm3 (1.5-4.5); LYMPH % 6.7 % (24.0-44.0); MEAN CORPUSCULAR HEMOGLOBIN 32.3 pg (27.0-33.0); MEAN CORPUSCULAR HGB CONC 33.5 g/dl (32.0-36.5); MEAN CORPUSCULAR VOLUME 96.6 fl (80.0-96.0); MONO # 0.4 K/mm3 (0.0-0.8); MONO % 3.5 % (0.0-5.0); NEUTROPHILS # 9.9 K/mm3 (1.8-7.7); NEUTROPHILS % 85.8 % (36.0-66.0); PLATELET COUNT, AUTOMATED 296 k/mm3 (150-450); RED CELL DISTRIBUTION WIDTH 13.7 % (11.5-14.5); WHITE BLOOD COUNT 11.5 K/mm3 (4.0-10.0)
[2016-12-03 06:27] LABS: ALBUMIN 1.8 GM/DL (3.2-5.2); ALBUMIN/GLOBULIN RATIO 0.49 (1.00-1.93); BILIRUBIN,TOTAL 0.5 MG/DL (0.2-1.0); CALCIUM LEVEL 8.1 MG/DL (8.8-10.2); CREATININE FOR GFR 1.73 MG/DL (0.55-1.02); POTASSIUM SERUM 4.2 MEQ/L (3.5-5.1); TOTAL PROTEIN 5.5 GM/DL (6.4-8.2)
[2016-12-03] MEDS: LACTOBACILLUS ACIDOPHILUS CAP (BACID) PO SCH ×3 (09:47→18:46)
--- NOTE | 2016-12-03 15:21 | IPN ---
DONE in ERROR MTDD
--- NOTE | 2016-12-03 17:08 | IPN ---
DATE: 12/03/2016 The patient is seen and examined at the bedside. Chart has been reviewed. The patient's liver ultrasound was concerning for acute cholecystitis. The patient denies any nausea, vomiting, any epigastric or right upper quadrant or left upper quadrant abdominal pain. No radiation between her shoulder blades. The patient is tolerating her diet well with no complaints. Occasionally, she says that she has heartburn which improves with TUMS. She otherwise denies any persistent pain in the right upper quadrant at all. She has had no fevers or chills. White count has remained stable at 11.5 from previous of 12.2 yesterday. Telemetry was unremarkable overnight. Denies any chills, joint pains, muscle aches. VITAL SIGNS: Temperature 97.8, pulse 90, respiratory rate 18, blood pressure 129/70, 95% on room air. GENERAL: The patient is awake, alert and oriented to person, place and time, answering questions appropriately. HEENT: Anicteric sclerae. No jaundice. NECK: No jugular venous distention. No thyromegaly. No cervical lymphadenopathy. LUNGS: Clear to auscultation. No wheezing, rales, or rhonchi. HEART: S1, S2, sinus rhythm with a loud left lower sternal border left-sided murmur as well as a murmur in the mitral air, radiation to the axilla, systolic ejection murmur. ABDOMEN: Soft. No rebound or guarding. Positive bowel sounds times four quadrants. On deep palpation of the left upper quadrant, she does wince a little. EXTREMITIES: No clubbing or cyanosis. Decreasing edema. LABORATORY DATA: White count 11.5, hemoglobin 10, hematocrit 32, platelet count 296, 85% neutrophils. Sodium 140, potassium 4.2, chloride 108, bicarbonate 22, BUN 17, creatinine 1.73, glucose of 103. MICROBIOLOGY: C. difficile on 12/01/2016 was negative. Two sets of blood cultures negative on 11/30/2016. Another two sets on 11/28/2016 were negative. Blood culture 11/24/2016 Staphylococcus aureus times two sets. IMAGING STUDIES: Nuclear medicine kidney scan with flow and function shows global impairment of renal function, deformity and displacement of left kidney due to large cyst seen. Liver ultrasound shows contracted gallbladder, positive sonographic Epperson's sign, suspected trace pericholecystic fluid, mild dilatation of CBD, findings cannot exclude acute cholecystitis, bilobed right renal cyst. 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 Otherwise, denies any chest pain, pressure or tightness, or cough production. Evaluation included chest x-ray which showed possible left lower lobe atelectasis and early infiltrate. Abnormal liver function tests were obtained due to abnormal liver tests showing complex septated right renal cyst, cholelithiasis without evidence of acute cholecystitis. Chest CT showed a bibasilar atelectasis, small right lower lobe consolidation. The patient was initially placed on ceftriaxone, azithromycin. Blood culture grew out methicillin-sensitive Staphylococcus aureus (MSSA). She was transitioned to nafcillin 2 grams every four hours with an increase in creatinine to 1.57. Rocha catheter was placed due to urine retention. Nephrology was consulted. Due to positive MSSA, infectious disease specialist was consulted recommending evaluation of L cranium bursitis on the left and continued with antibiotics and a transesophageal echocardiogram. Transesophageal echocardiogram reveals hypertrophic obstructive cardiomyopathy which her garde manager in [place] has known for several years and has been monitoring as well as new findings on transesophageal echocardiogram of severe mitral regurgitation with two small vegetations in mitral valve with no flail or broken leaflets. According to my discussion with Dr. Marques, her garde manager's partner, the patient has had a prior history of mitral regurgitation, moderate degree, and since there are no flail segments or broken pieces, the patient may continue with treatment with intravenous antibiotics managed by her primary care provider or infectious disease specialist. She may followup in [place] with her garde manager on arrival to determine the need to change her valve if there are flail or broken segments. CURRENT ISSUES: 1. 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 Currently complains of diarrhea. Clostridium (C) difficile negative. She is currently on cephazolin every 12 hours. She will need home care referral at [facility] as well as home care nurse for IV antibiotics for a total of six weeks. 2. Diarrhea, most likely secondary to antibiotics. C. difficile is negative. Defer to Dr. Chau for further management. 3. Acute kidney injury in the setting of sepsis, infective endocarditis and possible glomerular nephritis. Baseline creatinine of 0.8. Antibiotics have been changed to cephazolin with improvement in diarrhea. The patient has been tried on IV fluid hydration. Renal scan shows no obstructive uropathy. Defer to Dr. Padgett for further recommendations. 4. Transaminitis. Rule out acute cholecystitis. The patient currently denies any nausea, vomiting, or abdominal pain worsened by food. We will check a HIDA scan in the morning. 5. Hypertrophic obstructive cardiomyopathy. Ejection fraction is well preserved. Defer to her outpatient garde manager for further monitoring.
[2016-12-03 20:00] VITALS: BP 163/72
[2016-12-03] MEDS: PANTOPRAZOLE 40MG TAB (PROTONIX) PO SCH (20:03)
[2016-12-03] MEDS: NORTRIPTYLINE 25 MG CAP PO SCH (20:03)
[2016-12-03] MEDS: ACETAMINOPHEN TAB 650MG DOSE (2X325MG) PO PRN (20:03)
[2016-12-03] MEDS: ASPIRIN ENTERIC 325 MG TAB PO SCH (20:03)
[2016-12-03 20:53] VITALS: BP 129/70
[2016-12-03] MEDS: METOPROLOL SUCC *XL* 25MG TAB (TopROL *XL*) PO SCH (20:53)
[2016-12-03] MEDS: PHENobarbital 30 MG TAB PO SCH (20:53)
[2016-12-03] MEDS: MICONAZOLE-7 VAGINAL 2% CREAM 47.7 GM PV SCH (20:56)
--- NOTE | 2016-12-03 21:50 | IPN ---
DATE: 12/03/2016 SUBJECTIVE: The patient is seen this morning at the bedside. She reports no acute overnight events. Her elbow pain has improved. She denies any diarrhea overnight or this morning. No nausea. No vomiting. She does complain of puffiness in the hands. REVIEW OF SYSTEMS: Negative for headache, dizziness, chest pain, shortness of breath, nausea, vomiting, diarrhea, dysuria. Remainder of review of systems is negative. VITAL SIGNS: Afebrile, 97.8, pulse 90, respiratory rate 18, blood pressure 129/70, saturating 95% on room air. Urine output yesterday 1200 mL and further 950 mL since this morning. Weight in the bed scale today 85.3 kg. Oral intake not recorded. PHYSICAL EXAMINATION: GENERAL: Awake, alert, and oriented times four, in no acute distress. HEART: S1, S2, systolic murmur, 2+ radial pulse. Trace to 1+ edema in the lower extremities and edema present in the hands. LUNGS: Clear to auscultation bilaterally without wheezes, rales, or rhonchi. ABDOMEN: Soft, obese, nontender. Ext- puffy hands, 1+ edema bilateral low ext NEUROLOGIC: No focal deficit. PSYCHIATRIC: Appropriate mood and affect. GENITOURINARY: No catheter. No appreciable suprapubic distention. LABORATORY DATA: White count 11.5, hemoglobin 10.7, platelet count 296. Sodium 140, potassium 4.2, bicarbonate 22, creatinine 1.7, corrected calcium 9.3. LFTs downtrending. MEDICATIONS: Inpatient medications reviewed by myself. The patient remains on cefazolin 2 grams IV every 12 hours. The remainder of her medications are unchanged from prior. ASSESSMENT AND PLAN: 1. Acute kidney injury in the setting of infective endocarditis, suggestive of glomerulonephritis C4 deplete. The patient is noted for a creatinine creep to 1.7 today. Recent imaging does not suggest any obstructive uropathy. Her diarrhea has improved, unlikely to be prerenal. I will repeat a urinalysis with microscopy to look for any white blood cells (WBCs) in the urine suggestive of interstitial nephritis related to penicillin, although I do doubt it. Her differential on complete blood count (CBC) does not show significant eosinophilia. There are also no focal perfusion defects seen on renal scan to suggest any embolic phenomenon. She remains off intravenous (IV) fluids at this time. 2. Elevated transaminases continue to improve. Her statin is on hold. 3. Staphylococcus aureus bacteremia with mitral valve vegetation. The patient continues on renally-dosed cefazolin to complete six weeks of therapy. Her diarrhea has resolved. MTDD
[2016-12-04] VITALS: BP 160/72
[2016-12-04 04:00] VITALS: BP 167/80
[2016-12-04 05:00] LABS: BACTERIA, URINE SMALL AMOUNT; HYALINE CAST, URINE NONE SEEN /lpf (0-1); MICROSCOPIC EXAM PERFORMED; SQUAMOUS EPITHELIAL CELL URINE SMALL AMOUNT /hpf (SMALL AMT)
[2016-12-04] MEDS: SODIUM CHLORIDE 0.9% INJ 10 ML SYR IV SCH (05:04)
[2016-12-04 05:13] LABS: ALBUMIN 1.9 GM/DL (3.2-5.2); ALBUMIN/GLOBULIN RATIO 0.5 (1.00-1.93); BILIRUBIN,TOTAL 0.5 MG/DL (0.2-1.0); CALCIUM LEVEL 8.1 MG/DL (8.8-10.2); CREATININE FOR GFR 1.72 MG/DL (0.55-1.02); GLOMERULAR FILTRATION RATE 31.2 (>39); TOTAL PROTEIN 5.7 GM/DL (6.4-8.2)
[2016-12-04 05:19] LABS: BASO % 0.3 % (0.0-1.0); EOS # 0.3 K/mm3 (0.0-0.50); EOS % 2.2 % (0.0-3.0); LARGE UNSTAINED CELL # 0.1 K/mm3 (0.0-0.4); LYMPH # 0.9 K/mm3 (1.5-4.5); LYMPH % 6.6 % (24.0-44.0); MEAN CORPUSCULAR HEMOGLOBIN 32.1 pg (27.0-33.0); MEAN CORPUSCULAR HGB CONC 32.5 g/dl (32.0-36.5); MEAN CORPUSCULAR VOLUME 98.8 fl (80.0-96.0); MONO # 0.5 K/mm3 (0.0-0.8); MONO % 3.6 % (0.0-5.0); NEUTROPHILS # 10.7 K/mm3 (1.8-7.7); NEUTROPHILS % 86.2 % (36.0-66.0); PLATELET COUNT, AUTOMATED 298 k/mm3 (150-450); RED CELL DISTRIBUTION WIDTH 13.6 % (11.5-14.5); WHITE BLOOD COUNT 12.4 K/mm3 (4.0-10.0)
[2016-12-04 08:00] VITALS: BP 145/74
[2016-12-04] MEDS: LACTOBACILLUS ACIDOPHILUS CAP (BACID) PO SCH ×2 (08:00→11:59)
[2016-12-04] MEDS ORDERED: CEFA2INJ IV (10:17)
[2016-12-04 12:00] VITALS: BP 167/79
--- NOTE | 2016-12-04 12:21 | IPN ---
DATE: 12/04/2016 Mrs. Shaver is seen this morning on her bedside. She is sitting in the chair at the time of my visit. She is nothing by mouth today for a HIDA scan later this morning. She denies any nausea, vomiting, dyspnea or chest pain. She did have low grade fever last evening which has improved. The patient denies any dysuria or hematuria. PHYSICAL EXAMINATION: Temperature 98.2 degrees Fahrenheit, heart rate 88 per minute and respiratory rate 20 per minute. Blood pressure 145/74 mmHg and oxygen saturation 95% on room air. Head: Is atraumatic. Oral mucosa is somewhat dry. Ears, nose and throat are unremarkable. Neck is supple and without jugular venous distention (JVD) or thyroid enlargement. Heart: Sounds are regular with systolic murmur grade 2/6. Lungs have a few basilar crackles bilaterally. Abdomen is soft and nontender and without a palpable organomegaly. Bowel sounds are normal. Extremities have no cyanosis or clubbing. Skin has no rash or ulcers. Neurologically she is awake, alert and oriented times three. Today's labs show WBC count 12.4, hemoglobin 10.5 and hematocrit 32.4. Platelets 298. Sodium 138 and potassium 4.0. BUN 15 and creatinine 1.72. MEDICATIONS: I have reviewed all her medications. She is currently receiving cephazolin 2 grams every 12 hours for endocarditis. Other medications are unchanged. PROBLEMS: 1. Staph aureus bacteremia with mitral valve endocarditis. The patient remains on intravenous cephazolin and is currently afebrile. She did have low grade fever. Her urinalysis has been negative this morning. I will order a chest x-ray and another set of blood cultures. Her most recent blood cultures from 11/30/2016 have been negative so far. 2. Acute renal failure superimposed on chronic kidney disease. The patient is known to have a baseline creatinine of about 1.2. Now her kidney function seems to be leveled off with creatinine 1.72 today. There is no change in her kidney function over last 24 hours. Acute kidney injury is most likely related to glomerular nephritis related with her endocarditis. I have reassured the patient that her kidney function is stable and likely to improve over next few weeks. At present no other intervention is indicated and she will remain on IV antibiotics. 3. Anemia related to acute renal failure and endocarditis. At present it is stable and does not need any intervention. 4. Fever: The patient had low grade fever. Chest x-ray Is being ordered along with blood cultures. Previous blood cultures have been negative so far.
--- NOTE | 2016-12-04 12:24 | REP ---
Clinical: Fever. Technique: PA and lateral. Comparison: 11/30/2016. Findings: Mediastinum and cardiac silhouette are stable. Chronic interstitial changes are appreciated linear fibroatelectatic changes in the right mid lung zone may represent chronic changes. Cannot exclude interstitial edema. Lateral view best demonstrates small pleural effusions and bibasilar atelectasis (left greater than right). Right-sided PICC line with tip in the SVC. Skeletal structures demonstrate degenerative changes. Impression: Small bilateral pleural effusions and bibasilar atelectasis. Evidence to suggest interstitial edema. Signed by Constantino Bright MD 12/04/2016 12:14 P
--- NOTE | 2016-12-04 13:40 | REP ---
HEPATOBILIARY SCAN: HISTORY: Question acute cholecystitis. Comparison sonography December 01, 2016. TECHNIQUE: 6.3 mCi technetium 99m mebrofenin is injected and sequential anterior abdominal images are acquired. Three-hour delayed imaging was acquired after the initial 60 minutes. FINDINGS: Initial hepatocellular parenchymal uptake phase is unremarkable. Intrahepatic and extrahepatic biliary labeling and duodenal labeling are seen at 10 minutes. Normal washout from the liver parenchyma is seen. The gallbladder is not visualized during the first 60 minutes of imaging. Three-hour delayed images show extensive bowel uptake and no definite gallbladder uptake. I note that on recent ultrasound the gallbladder was small and contracted in appearance. Gallstones are visible on CT and on ultrasound. IMPRESSION: Nonvisualization of the gallbladder even on delayed scans. I cannot exclude acute cholecystitis. Signed by Ervin Knight MD 12/04/2016 03:53 P
[2016-12-04 16:00] VITALS: BP 144/75
--- NOTE | 2016-12-06 17:48 | DS.PDOC ---
Discharge Summary General Date of Admission Nov 24, 2016 at 19:43 Date of Discharge 12/04/16 Attending Physician: LINDA Specialist/Consultants Involve Dr. Padgett-Nephrology Dr. Chau-Infectious Disease Dr. Nguyễn-Orthopaedic Surgeon Discharge Summary PROCEDURES PERFORMED DURING STAY: PICC insertion, transthoracic & transesophageal echocardiograms ADMITTING DIAGNOSES: 1. fever, chills, body aches, fatigue 2. transaminitis DISCHARGE DIAGNOSES: 1. METHICILLIN-SENSITIVE STAPHYLOCCOCUS AUREUS ENDOCARDITIS 2. CHRONIC MODERATE MITRAL REGURGITATION WITH WORSENING SEVERE MITRAL REGURGITATION DUE TO ACUTE MSSA ENDOCARDITIS WITH NO FLAIL SEGMENTS OR BROKEN LEAFLETS 3. CHOLELITHIASIS 3.LEFT ELBOW BURSITIS COMPLICATIONS/CHIEF COMPLAINT: Right Lower Lobe Pneumonia. HISTORY OF PRESENT ILLNESS: Ms. Shaver presented to ED with complaints of fever , chills, body aches for 2 days while she was in [place], and associated fatigue and weakness when she boarded a plane to [place] the next day. She had to be wheeled off the flight, and family brought her into the ED due to slurring of words and excessive sleepiness. She denied SOB, cough, chest pain, palpitations, nausea, vomiting and abdominal pain. She was noted to also have pain in the left wrist and knee. HOSPITAL COURSE: Patient had no leukocytosis or lactic acidosis on admission, but had elevated liver enzymes. Hepatitis panel resulted negative. Urine culture was negative, influenza negative, respiratory panel negative, stool occult blood negative. Transaminitis was attributed to MRSA infection, as well as cholecystitis later found on HIDA scan. Pt was asymptomatic and refused to have further interventions, thus no interventions were done. Blood cultures were positive for Staph Aureus. Pt was initially treated with Vancomycin & Zosyn , with Zosyn later being discontinued, and then later switching Vancomycin to Nafcillin once blood cultures showed Staph Aureus was MSSA. Source of bacteremia was found to be pneumonia. 2D TTE found no valvular vegetations. SILAS on 11/29 showed 2 small-appearing vegetations on mitral valve and severe mitral valve regurgitation. PICC line was also inserted on 11/30 for 4-6 weeks of antibiotics. [facility] in [place] was contacted, which stated there was no emergent need to transfer for MR valve replacement at the time, and medical records of this stay were faxed over to pt's PCP, Dr. Nicci Uribe in [place], [place] ( , ). During her stay, pt also complained of left arm swelling and pain. Imaging was negative for clot or trauma, and Orthopaedic Surgery was consulted and found elbow did not require orthopaedic intervention or drainage. Elbow cellulitis eventually improved from antibiotics and rest. During her stay, Nephrology was consulted due to DANIELLE and hyponatremia and hypokalemia; renal cyst was noted on CT, which did not require treatment at the time. DANIELLE resolved with hydration, as did hyponatremia and hypokalemia. 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 Pt slowly continued to improve from admission on IV antibiotics. Pt did have a few days of diarrhea , but workup including GI panel and stool sample for C. difficile were all negative. Diarrhea was found to be 2/2 to antibiotics, which improved towards the end of her stay with antibiotic adjustment. Pt was tolerating diet well and eager to leave hospital for remaining course of antibiotics in outpatient treatment. Nafcillin was switched to Cefazolin and [facility] was contacted for home IV antibiotic of Cefazolin for a total of 6 weeks antibiotics, with plan for pt to travel from her home in [facility] [place] [facility] [place] to [facility] for medical management and assistance with PICC line and antibiotics. Plan was discussed in detail with pt, including to follow up with her quarter backer in [place]. Pt and relayed understanding. DISCHARGE MEDICATIONS: Please see below. ALLERGIES: Please see below. PHYSICAL EXAMINATION ON DISCHARGE: VITAL SIGNS: Please see below. GENERAL: NAD, A&Ox3 HEENT: normocephalic, atraumatic NECK: noticeable JVD, no lymphadenopathy CARDIOVASCULAR EXAMINATION: Normal S1, S2, with systolic 2/6 murmur RESPIRATORY EXAMINATION: CTAB, no wheezing ABDOMINAL EXAMINATION: soft, nontender to light and deep palpation, nondistended EXTREMITIES: no clubbing, cyanosis, or edema SKIN: no visible rash NEUROLOGICAL EXAMINATION: motor and sensation intact in all extremities PSYCHIATRIC EXAMINATION: normal mood and affect LABORATORY DATA: Please see below. IMAGING: * 11/24 CXR: Cannot exclude trace left lower lobe atelectasis/early infiltrate. * 11/24 Left Wrist Xray: Degenerative changes at the first and second carpometacarpal joints. * 11/24 Gallbladder US: Findings suggesting underlying hepatic parenchymal disease requires correlation. No focal hepatic lesion identified. Cholelithiasis without definite evidence for acute cholecystitis. Complex septated right renal cyst. * 11/[address]: Bibasilar atelectasis and small right lower lobe consolidation. Chronic pulmonary parenchymal changes and mild cardiomegaly. Upper abdomen demonstrates cholelithiasis and 9.5 cm left renal cyst. * 11/26 Renal US: Bilateral renal cysts as described above. No evidence for hydronephrosis. Incomplete evaluation of the left renal parenchyma due to large cyst and technical factors. If necessary pre and postcontrast CT of the abdomen /pelvis should be considered for further detailed evaluation of the urinary tract system. * 11/28 Left Arm US: No evidence for deep venous thrombosis. Edema and small amount of fluid at the level of the elbow should be correlated with physical examination. * 11/29 Left Elbow Xray: No acute fracture dislocation. No obvious effusion. Cannot exclude mild posterior swelling/bursitis. * 11/29 CXR: No acute disease. * 11/30 CXR: Chronic stable changes. Superimposed right lower lobe atelectasis and small pleural effusion suggested. * 12/01 Liver US: Contracted gallbladder with gallstones, positive sonographic Epperson's sign, and suspected trace amount of pericholecystic fluid. Mild dilatation to the common bile duct is also appreciated and findings cannot exclude acute cholecystitis. Bilobed right renal cyst. * 12/01 Renal Scan: Rising time activity renal excretion curves consistent with global impairment of renal function. Symmetric flow. No evidence of obstructive uropathy. Deformity and some displacement of the left kidney due to the large cyst seen. * 12/04 HIDA Scan: Nonvisualization of the gallbladder even on delayed scans. Cannot exclude acute cholecystitis. * 12/04 CXR: Small bilateral pleural effusions and bibasilar atelectasis. Evidence to suggest interstitial edema. PROGNOSIS: fair ACTIVITY: As tolerated DIET: no added salt DISPOSITION: Home with Home Health (weekly visits to [facility] for medications and PICC line assistance) DISCHARGE INSTRUCTIONS: 1. Immediate f/u at [facility] for repeat labs and further care 2. Continue home care/IV cefazolin 2grams q12hrs 3. F/u with PCP Dr. Nicci Uribe in [place]. Medical record of [facility] stay sent over. 4. F/u with Elementary Educator Dr. Genao in [place] to assess for broken or missing Mitral Valve leaflets to determine need for Mitral valve replacement for severe MR due to endocarditis. SILAS & 2D echo placed on disc. DISCHARGE CONDITION: Stable TIME SPENT ON DISCHARGE: Greater than 60 minutes. Vital Signs/I&Os Vital Signs Date Time Temp Pulse Resp B/P (MAP) Pulse Ox O2 Delivery O2 Flow Rate FiO2 12/04/16 16:00 100.0 98 18 144/75 (98) 97 Room Air Microbiology Microbiology 11/30/16 Blood Culture - Final, Complete NO GROWTH AFTER 5 DAYS 11/30/16 Blood Culture - Final, Complete NO GROWTH AFTER 5 DAYS 11/28/16 Blood Culture - Final, Complete NO GROWTH AFTER 5 DAYS 11/28/16 Blood Culture - Final, Complete NO GROWTH AFTER 5 DAYS 12/01/16 Clostridium difficile (PCR) - Final, Complete Discharge Medications Scheduled (Ecotrin) 325 Mg Tab, 325 MG PO DAILY, (Reported) Atorvastatin Calcium (Atorvastatin Calcium) 20 Mg Tab, 20 MG PO DAILY, (Reported ) Cefazolin Sodium (Cefazolin Sodium) 2 Gm/20 Ml Inj, 2 GM IV Q12H Metoprolol Succinate (Toprol Xl) 25 Mg Tab, 25 MG PO DAILY, (Reported) Nortriptyline HCl (Nortriptyline HCl) 25 Mg Cap, 25 MG PO DAILY, (Reported) Phenobarbital (Phenobarbital) 60 Mg Tab, 120 MG PO DAILY, (Reported) Allergies Coded Allergies: Hydromorphone (Verified Allergy, Unknown, 12/08/16) siulated heart attack Codeine (Verified Adverse Reaction, Intermediate, 12/08/16) nausea GME ATTESTATION GME ATTESTATION My preceptor for this patient encounter was physically present in the building during the encounter and was fully available. As needed, all aspects of the patient interview, examination, medical decision making process, and medical care plan development were reviewed and approved by the preceptor. Preceptor is aware and concurs with the plan as stated in the body of this note and will attest to such by his/her cosignature. ELFEGO ARANA DO Dec 06, 2016 17:48 LORI MCKEON MD Dec 26, 2016 12:01
--- NOTE | 2016-12-14 14:42 | DSES ---
DATE OF ADMISSION: 11/24/2016 DATE OF DISCHARGE: 12/04/2016 PRIMARY CARE PROVIDER: [facility], [place]. The patient's primary care provider in [place] is Dr. Nicci Uribe, phone number is [phone]. PRIMARY DISCHARGE DIAGNOSES: 1. Methicillin resistant Staphylococcus aureus (MRSA)infective endocarditis with severe mitral regurgitation with history of chronic moderate mitral regurgitation. 2. Diarrhea secondary to antibiotics. 3. Acute kidney injury in the setting of sepsis and endocarditis and glomerulonephritis with history of chronic kidney disease stage III, baseline creatinine of 1.2. 4. Transaminitis. 5. History of hypertrophic obstructive cardiomyopathy. 6. Left elbow cellulitis. CONSULTANTS DURING THIS ADMISSION: Infectious disease specialist, Dr. Sawyer Chau, calculation reviewer, Dr. Hui, orthopedic surgeon, Dr. Rafael Hebert. PROCEDURES DURING THIS ADMISSION: 2-dimensional echo on 11/26/2016, read by Dr. Narinder Burt. Transesophageal echocardiogram on 11/29/[address] Juwan Werner. Peripherally inserted central catheter (PICC) line placement on 11/30/2016 placed by interventional radiology. Kidney scan with flow function on 12/01/2016. HIDA scan on 12/04/2016. DISCHARGE MEDICATIONS: - Cefazolin 2 grams IV every 12 hours - atorvastatin 200 mg daily - enteric coated aspirin 325 mg daily - Toprol XL 25 mg daily - nortriptyline 25 mg daily - phenobarbital 120 mg daily DISCHARGE INSTRUCTIONS: Home care to be arranged by [facility] while the patient is [facility] for two weeks. When she returns to [place], [place] provider will touch base with her primary care provider, Dr. Uribe, to arrange for home care and continued IV antibiotics for completion of 6 to 8 weeks. The patient is to have CBC, sedimentation rate and C-reactive protein taken weekly for monitoring of her endocarditis. She is to followup with her marine insulator regarding rechecking the echo regarding the severe mitral regurgitation to rule out broken or missing leaflets. [facility] to call her primary care physician in [place] Dr. Nicci Uribe to arrange home care, home antibioitics, and referral to infectious disease when she leaves [place] and returns to [place]. Patient' s [place] Branch Store Manager, Dr. Gneao, to reassess mitral valve for broken or missing leaflets in light of her severe MR from infective endocarditis. HOSPITAL COURSE: This is a 71-year-old female with a history of AVM in the brain, operated on in 1991, stent placement in 2009, on chronic seizure prophylaxis, hypertension, dyslipidemia, arthritis, depression, hypertrophic obstructive cardiomyopathy followed by her marine insulator in [place], as well as prior history of chronic moderate mitral regurgitation, presented to the emergency room on 11/24/2016 while vacationing in the [facility], living on [facility] for the summer to December, but usually lives in [place] year round. Presented with a 2-day history of fever, chills, and body aches. She otherwise denies any chest pain, pressure, tightness, cough, nausea, vomiting, diarrhea, or abdominal pain. Evaluation in the emergency room included a chest x-ray, which showed possible left lower lobe atelectasis and early infiltrate. Chest CT showed bibasilar atelectasis, small right lower lobe consolidation. She was treated for community-acquired pneumonia with ceftriaxone and azithromycin. Two sets of blood cultures grew out methicillin sensitive Staphylococcus aureus (MSSA). She was then changed to nafcillin 2 grams every 4 hours with increasing creatinine from baseline of 1.2 to 1.57. Rocha catheter was placed due to urine retention. Nephrology and infectious disease were consulted for the new findings of MSSA and worsening creatinine. The patient was found to have sepsis with possible glomerulonephritis from infective endocarditis. Two-dimensional echocardiogram showed no vegetations. She was found to have subaortic flow obstruction. Transesophageal echocardiogram was obtained, which showed hypertrophic, obstructive cardiomyopathy, two small vegetations in the mitral valve with no flail or broken leaflets with prior history of moderate mitral regurgitation. She had no congestive heart failure (CHF), arrhythmias, recurrent fevers, or recurrent blood cultures positive for MSSA. Therefore, the patient was deemed appropriate for continuation of IV antibiotics and not a surgical candidate at this time. This was discussed with her marine insulator's partner in [place], Dr. Mcdaniels, with recommendations that upon returning to [place] for the patient to followup with either her primary care physician, Dr. Uribe, or infectious disease specialist to manage her course. Should she develop heart failure, persistent fevers, may need to reconsider reevaluating the mitral valve. The patient developed diarrhea, most likely secondary to nafcillin. Recommendations from Dr. Sawyer Chau is to change to intravenous cefazolin. She continued to have low grade temperatures of 100.1 and 100.0. No changes in antibiotics were made by her infectious disease specialist. She was noted to have increasing and worsening creatinine to 1.7 from baseline of 1.2. Evaluated with a renal scan with flow and function, which shows global impairment of renal function, symmetric flow, no evidence of obstructive uropathy, deformity and some displacement of the left kidney due to a large cyst was seen. Foot Gatherer, Dr. Hui and Dr. Padgett, felt her acute kidney injury, superimposed on chronic kidney disease with baseline creatinine of 1.2 most likely leveled off with her creatinine of 1.72 with no change in her kidney function over the past 24 hours prior to discharge. Her acute kidney injury was most likely related to glomerulonephritis related to her infective endocarditis. She was reassured that her kidney function is stable and likely to improve over the next 3 days with continued treatment for infective endocarditis. Due to recurrent low grade fevers despite no complaints of abdominal pain, nausea, vomiting, she did have abnormal liver function tests with AST peaking at 321, ALT peaking at 212, which improved to normal. The patient was tolerating her diet well without nausea, vomiting, or abdominal pain. HIDA scan was performed to rule out cholecystitis and nonvisualization of the gallbladder, even on delayed scans were found, but the patient was asymptomatic. Therefore, the patient was kept on her current diet. If symptoms persist, she was instructed to get a referral to a surgeon to further evaluate for cholecystitis. The patient passed a home safety evaluation and was discharged to followup at [facility] [place] after 2 weeks and when the patient decides to return to [place], [facility] is to arrange for her primary care physician in [place] to continue the intravenous antibiotics, referral to infectious disease specialist, as well as home care. LABORATORIES ON DISCHARGE: White count 12.4, hemoglobin 10.5, hematocrit 32.4, platelet count 298. Sodium 138, potassium 4, chloride 107, bicarbonate 25, BUN 15, creatinine 1.72, glucose of 105, calcium of 8.1, total bilirubin 0.5, AST 38, improved from admission AST of 371. ALT 12, improved from admission ALT of 212. Alkaline phosphatase 134 from previous alkaline phosphatase of 223. Total protein 5.7, albumin 1.9. Microbiology: Blood culture on 11/24/2016 with Staphylococcus aureus, methicillin sensitive, sensitive to oxacillin, gentamicin, Zyvox, tetracycline, Bactrim and vancomycin. Resistant to clindamycin, erythromycin and penicillin G. Urine culture on 11/24/2016 showed no growth. Influenza A and B on 11/24/2016 negative. GI panel on 11/25/2016 negative. Time spent on discharge: 45 minutes. ADDENDUM: Transesophageal echocardiogram (SILAS) read by Dr. Narinder Burt on 11/26/2016 shows ejection fraction of 65%, normal sinus rhythm with intraventricular conduction disturbance, moderately dilated left atrium but normal left ventricular size. Right heart chambers were normal. Asymmetric septal hypertrophy on real time imaging from parasternal projection. Septum appears to move normally but other walker were hyperkinetic. Mildly thickened mitral annulus, but normal appearing leaflet thickness and excursion with anterior systolic motion of anterior leaflet with mitral valve into the left ventricular outflow tract. No posterior systolic buckling. Three equal sized aortic cuffs with marginally thickened cuff edges, but adequate cusp separation. Normal aortic root size. No apparent intracardiac mass or pericardial effusion. Color flow Doppler taken from parasternal projection showed no aortic, mild mitral and mild tricuspid insufficiency, guided continuous wave Doppler of the left ventricular outflow tract showed a severe obstruction that appear to be subvalvular as demonstrates by turbulence in the left ventricular outflow tract itself prior to the aortic valve. This would be consistent with subaortic stenosis of a serious degree. Pulse and continuous wave Doppler of her left ventricular outflow tract showed normal peak diastolic filling velocities against mitral stenosis. There is a slightly more prominent late diastolic atrial dependent filling pattern. Her early mitral deceleration time was prolonged. There was tissue Doppler evidence of further left ventricular diastolic dysfunction. Elevated estimated mean left atrial pressure. Pulsed and continuous wave Doppler of her pulmonary trunk shoed a normal peak systolic velocity against right ventricular outflow tract obstruction. Her pulmonary artery acceleration time was abbreviated consistent with at least mildly elevated pulmonary vascular resistance. Guided continuous wave Doppler of her tricuspid valve allowed our further estimation of right ventricular systolic pressure for at least mildly increased. Inferior vena cava was of normal size with normal respiratory collapse against an elevated central venous pressure. Unable to detect any clear pedunculated vegetation with a reported Staphylococcus Aureus bacteremia. 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 Transesophageal echocardiogram on 11/29/[address] Juwan Werner showed left ventricle appeared to have moderate concentric left ventricular hypertrophy. No regional wall motion abnormalities of the left ventricle. Left ventricular ejection fraction 75% by visual estimate. Right ventricle appeared normal in size and systolic function. Lipomatous hypertrophy of the intraatrial septum was present. No atrial septal defect or patent foramen ovale detected by visual assessment and by color flow Doppler. Moderate mitral annular calcifications present. Two vegetations were seen on the mitral valve which were small and stringy in appearance. The larger of the two appeared to be on the posterior mitral leaflet. No broken chordae or flail segments were identified. The width of the color flow jet (vena contracta) was suggestive of moderate mitral regurgitation, however, the mitral regurgitation jet reached the superior roof of the left atrium where it changed directions and therefore would be classified as severe mitral regurgitation. There was no cystotic flow reversal in the left upper pulmonary vein. Aortic valve was tricuspid and had moderate focal thickening and focal cusp of deposits. No aortic stenosis. Very mild aortic regurgitation was present. Pulmonic valve was difficult to visualize but appeared normal. Tricuspid leafs appeared normal. No significant tricuspid regurgitation identified. No pericardial effusion. Descending thoracic aorta showed mild atheroma. Patient tolerated the procedure well without any immediate complications. Two vegetations seen on the mitral valve which appeared small with moderate mitral annular calcification. Severe mitral regurgitation. No flail segments or broke chordae identified involving the mitral valve. Left ventricle hypertrophy, probably at least moderate. Hyperdynamic left ventricle (LV) systolic function. Moderate aortic valve sclerosis of tricuspid aortic valve and very mild aortic regurgitation. Hyperdynamic left ventricular systolic function. Lipomatous hypertrophy of the intraatrial septum. Mild atheroma involving the descending thoracic aorta. MTDD
--- NOTE | 2016-12-17 18:07 | IPNPDOC ---
Subjective Date Seen The patient was seen on 12/04/16. Subjective Chief Complaint/HPI The patient is a 71-year-old female admitted with a reason for visit of Right Lower Lobe Pneumonia. Pt seen on 12/04/16. Pt was seen and examined at bedside. No acute complaints. Pt states that her last bowel movement was two days ago on Sunday. Pt states she had an episode of fever and chills yesterday that resolved after taking some Tylenol. No complaint of abdominal pain. Discussed plan with patient. No other complaints. Constitutional: Reports: Chills, Fever, Other (Fever and chills resolved with Tylenol.) ENT: Denies: Head Aches Skin: Denies: Rash Cardiovascular: Denies: Chest Pain, Lt Headedness Gastrointestinal: Denies: Nausea, Vomiting, Abdominal Pain, Diarrhea, Constipation Psych: Reports: Mood Normal Objective Physical Examination General Exam: Positive: Alert, Cooperative, No Acute Distress Eye Exam: Positive: Conjunctiva & lids normal, EOMI ENT Exam: Positive: Atraumatic, Mucous membr. moist/pink Neck Exam: Positive: Supple, JVD (visible pulsations) Chest Exam: Positive: Clear to auscultation, Normal air movement Heart Exam: Positive: Rate Normal, Normal S1, Murmurs (systolic murmur heard throughout, loudest at 2nd intercostal on the left) Abdomen Exam: Positive: Normal bowel sounds, Soft, Negative: Tenderness Extremity Exam: Positive: Normal pulses, Negative: Edema Skin Exam: Positive: Other skin issue Neuro Exam: Positive: Normal Speech, Sensation Intact Psych Exam: Positive: Mental status NL, Mood NL, Oriented x 3 Assessment /Plan Assessment Staphylococcus aureus bacteremia -continue cefazolin q12h IV -PICC line inserted 11/30 for possible 4-6 weeks of antibiotics -Transthoracic echocardiogram was negative for vegetations, but transesophageal echocardiogram performed 11/29 revealed two vegetations on the mitral valve which appear small with severe mitral regurgitation -PFS being contacted to arrange home medication training and wound care with? Mild leukocytosis -Pt one episode of fever last night that resolved with Tylenol, vitals this morning were WNL. WBC of 12.4 possibly 2/2 to cholecystitis per liver US finding Monitor. Continue cefazolin -New blood cultures show no growth after 24hrs. No growth after 48hrs on 11/28 cultures -CRP from 11/30 elevated, but continuing to trend downwards -ESR elevated and trending up. Monitor Right lower lobe pneumonia -is suspected source of bacteremia, noted on CXR from 11/30 Acute kidney injury -Creatinine elevated at 1.72. Worsening kidney function -Nephrology consulted. Appreciate their assistance -Rocha catheter discontinued 11/29 -Renal ultrasound showed 9.[address] may be needed, but will hold off until impaired renal function improves -kidney scan order today to determine function/flow; results pending -C4 found to be depleted Diarrhea -stool sample tested for C. Diff; results negative -lactobacillius acidophilus given -stool sample for occult blood taken, results pending Fungal Vaginal Rash -miconazole cream given for rash in vaginal area Hypokalemia - resolved -potassium level WNL. Will Monitor. Transaminitis due to current acute illnesses -AST still elevated but trending down, ALT is WNL. Liver US ordered, results negative for hepatic inflammation, possible cholecystitis -hepatitis panel negative on 11/24/16 Dyslipidemia -discontinued home atorvastatin for possible hepatotoxicity Hypertension -bp controlled. Continue B-Juan -Metoprolol restarted 11/28 by ID History of brain AV malformation -s/p surgical repair in 1991 with stent placement in 2009 -on Phenobarbital for seizure prophylaxis -Continue aspirin Hypertrophic aortic stenosis of severe degree -plan to obtain cardiac record from [place] -B-juan started per ID 11/28/16 Depression -continue home nortriptyline DVT prophylaxis -TEDs/SCD Plan/VTE VTE Prophylaxis Ordered?: Yes Plan/Urinary Catheter Reason for insertion/continuin: Acute obstruct/retention VS, I&O, 24H, [facility] Vital Signs/I&O Vital Signs Date Time Temp Pulse Resp B/P (MAP) Pulse Ox O2 Delivery O2 Flow Rate FiO2 12/04/16 04:00 98.7 91 20 167/80 (109) 93 Room Air 11/29/16 16:15 2 I&O- Last 24 Hours up to 6 AM 12/04/16 06:00 Intake Total 1210 ml Output Total 1350 ml Balance -140 ml Laboratory Data 24H LABS Laboratory Tests 2 12/04/16 04:35: White Blood Count 12.4H, Red Blood Count 3.28L, Hemoglobin 10.5L, Hematocrit 32.4L, Mean Corpuscular Volume 98.8H, Mean Corpuscular Hemoglobin 32.1, Mean Corpuscular Hemoglobin Concent 32.5, Red Cell Distribution Width 13.6, Platelet Count 298, Neutrophils (%) (Auto) 86.2H, Lymphocytes (%) (Auto) 6.6L, Monocytes (%) (Auto) 3.6, Eosinophils (%) (Auto) 2.2, Basophils (%) (Auto) 0.3, Neutrophils # (Auto) 10.7H, Lymphocytes # (Auto) 0.9L, Monocytes # (Auto) 0.5, Eosinophils # (Auto) 0.3, Basophils # (Auto) 0.0, Large Unclassified Cells % 1.0 , Large Unclassified Cells # 0.1, Urine Appearance HAZY, Urine Color YELLOW, Urine pH 6.0, Urine Specific [place] 1.002, Urine Protein NEGATIVE, Urine Glucose (UA) NEGATIVE, Urine Ketones NEGATIVE, Urine Urobilinogen 0.2, Urine Bilirubin NEGATIVE, Urine Leukocyte Esterase NEGATIVE, Urine Blood 1+H, Urine Nitrite NEGATIVE, Urine WBC 7-10H, Urine RBC 3-5H, Urine Squamous Epithelial Cells SMALL AMOUNT, Urine Bacteria SMALL AMOUNTH, Urine Hyaline Casts NONE SEEN , Urine Sediment Examination PERFORMED, Urine WBC (Auto) 3, Urine RBC (Auto) 5H , Urine Hyaline Casts (Auto) 0, Urine Bacteria (Auto) 1+H, Urine Sperm (Auto) , Anion Gap 6L, Glomerular Filtration Rate 31.2L, Blood Urea Nitrogen 15, Creatinine 1.72H, Sodium Level 138, Potassium Level 4.0, Chloride Level 107, Carbon Dioxide Level 25, Calcium Level 8.1L, Aspartate Amino Transf (AST/SGOT) 38H, Alanine Aminotransferase (ALT/SGPT) 12, Alkaline Phosphatase 134H, Total Bilirubin 0.5, Total Protein 5.7L, Albumin 1.9L, Albumin/Globulin Ratio 0.50L CBC/BMP Laboratory Tests 12/04/16 04:35 Red Blood Count 3.28 L, Mean Corpuscular Volume 98.8 H, Mean Corpuscular Hemoglobin 32.1, Mean Corpuscular Hemoglobin Concent 32.5, Red Cell Distribution Width 13.6, Neutrophils (%) (Auto) 86.2 H, Lymphocytes (%) (Auto) 6.6 L, Monocytes (%) (Auto) 3.6, Eosinophils (%) (Auto) 2.2, Basophils (%) (Auto ) 0.3, Neutrophils # (Auto) 10.7 H, Lymphocytes # (Auto) 0.9 L, Monocytes # ( Auto) 0.5, Eosinophils # (Auto) 0.3, Basophils # (Auto) 0.0, Calcium Level 8.1 L , Aspartate Amino Transf (AST/SGOT) 38 H, Alanine Aminotransferase (ALT/SGPT) 12 , Alkaline Phosphatase 134 H, Total Bilirubin 0.5, Total Protein 5.7 L, Albumin 1.9 L Microbiology Microbiology 11/30/16 Blood Culture - Preliminary, Resulted No Growth after 72 hours. All specime... 11/30/16 Blood Culture - Preliminary, Resulted No Growth after 72 hours. All specime... 11/28/16 Blood Culture - Final, Complete NO GROWTH AFTER 5 DAYS 11/28/16 Blood Culture - Final, Complete NO GROWTH AFTER 5 DAYS 11/24/16 Blood Culture - Final, Complete Staphylococcus Aureus 11/24/16 Blood Culture - Final, Complete Staphylococcus Aureus 12/01/16 Clostridium difficile (PCR) - Final, Complete 11/25/16 Gastrointestinal Tract Panel (PCR) - Final, Complete 11/25/16 Stool Occult Blood (MAEVE) - Final, Complete 11/24/16 Respiratory Virus Panel (PCR) (MAEVE) - Final, Complete 11/24/16 Influenza Virus Type A Antigen - Final, Complete 11/24/16 Influenza Virus Type B Antigen - Final, Complete 11/24/16 Urine Culture - Final, Complete GME ATTESTATION GME ATTESTATION My preceptor for this patient encounter was physically present in the building during the encounter and was fully available. As needed, all aspects of the patient interview, examination, medical decision making process, and medical care plan development were reviewed and approved by the preceptor. Preceptor is aware and concurs with the plan as stated in the body of this note and will attest to such by his/her cosignature. ELFEGO ARANA DO Dec 04, 2016 08:49
== END 2016-12-04 18:10 | disposition home or self-care (01) | DRG 289 ==
LOC: M ED 14:03 → M ED INP 19:43 → M MS5PR 11-25 14:05 → M PCU 11-29 16:44 → M MS4PR 12-03 07:55 → M PED 12-03 18:35
PROVIDERS: ADMIT Internal Medicine; ATTEND General Practice
PROC: 02HV33Z Insertion of Infusion Device into Superior Vena Cava, Percutaneous Approach (ICD-10-PCS; principal; 2016-11-30)
DX: I33.0 Acute and subacute infective endocarditis (principal); K81.0 Acute cholecystitis; E87.1 Hypo-osmolality and hyponatremia; N17.9 Acute kidney failure, unspecified; E87.2 Acidosis; R78.81 Bacteremia; I42.1 Obstructive hypertrophic cardiomyopathy; B95.7 Other staphylococcus as the cause of diseases classified elsewhere; N28.1 Cyst of kidney, acquired; Z79.899 Other long term (current) drug therapy; I10 Essential (primary) hypertension; F32.9 Major depressive disorder, single episode, unspecified; M19.90 Unspecified osteoarthritis, unspecified site; D69.6 Thrombocytopenia, unspecified; E78.5 Hyperlipidemia, unspecified; I35.0 Nonrheumatic aortic (valve) stenosis; Z79.82 Long term (current) use of aspirin; E87.6 Hypokalemia; R33.9 Retention of urine, unspecified; R19.7 Diarrhea, unspecified; M70.32 Other bursitis of elbow, left elbow; D63.1 Anemia in chronic kidney disease

== ENCOUNTER 2016-12-08 16:46 | Emergency (ER) | payer OTHER, MEDICARE ==
[~2016-12-08] VITALS: Ht 160 cm; Wt 72.7 kg
[~2016-12-08 16:46] MED LIST changes: -ACET1TAB17 PO; -ASPI81TA85 PO; -FERR325T16 PO; -FLUZ1INJ IM; -FOLI1TAB4 PO; -LASI20TA PO; -METO1TAB87 PO; -MILKSUS5 PO; -OXYC1TAB23 PO; -PHEN-312 PO; -POTA1TAB14 PO; -RANI150C PO; -SPIR25TA2 PO; -[UNRECOGNIZED DRUG - CODE] ID
[2016-12-08 17:50] LABS: BASO % 0.2 % (0.0-1.0); EOS # 0.3 K/mm3 (0.0-0.50); EOS % 3.8 % (0.0-3.0); LARGE UNSTAINED CELL # 0.2 K/mm3 (0.0-0.4); LARGE UNSTAINED CELL % 2.1 % (0.0-4.0); LYMPH # 0.8 K/mm3 (1.5-4.5); LYMPH % 8.7 % (24.0-44.0); MEAN CORPUSCULAR HEMOGLOBIN 31.8 pg (27.0-33.0); MEAN CORPUSCULAR VOLUME 96.4 fl (80.0-96.0); MONO # 0.4 K/mm3 (0.0-0.8); MONO % 4.5 % (0.0-5.0); NEUTROPHILS # 7.3 K/mm3 (1.8-7.7); NEUTROPHILS % 80.8 % (36.0-66.0); PLATELET COUNT, AUTOMATED 296 k/mm3 (150-450); RED CELL DISTRIBUTION WIDTH 13.2 % (11.5-14.5)
[2016-12-08 18:09] LABS: CALCIUM LEVEL 8.8 MG/DL (8.8-10.2); CREATININE FOR GFR 1.28 MG/DL (0.55-1.02); GLOMERULAR FILTRATION RATE 43.9 (>39); POTASSIUM SERUM 3.6 MEQ/L (3.5-5.1)
[2016-12-08 18:14] LABS: ALBUMIN 2.1 GM/DL (3.2-5.2); ALBUMIN/GLOBULIN RATIO 0.5 (1.00-1.93); BILIRUBIN,DIRECT 0.1 MG/DL (0.0-0.2); BILIRUBIN,TOTAL 0.4 MG/DL (0.2-1.0); TOTAL PROTEIN 6.3 GM/DL (6.4-8.2)
--- NOTE | 2016-12-08 18:20 | REP ---
Clinical: Dyspnea and cough. Comparison: 12/04/2016. Findings: Examination is limited by underpenetration and portable technique. Mediastinum and cardiac silhouette are stable. Right PICC line with tip in the SVC. Mild interstitial edema cannot be excluded. No obvious focal consolidation, effusion, or pneumothorax. Skeletal structures intact. Impression: Chronic stable changes. No obvious acute consolidation. Signed by Constantino Bright MD 12/08/2016 06:11 P
[2016-12-08] MEDS ORDERED: FUROSEMIDE 40 MG/4 ML VIAL (J1940) IV ONE (19:15)
[2016-12-08] MEDS ORDERED: ACETAMINOPHEN TAB 650MG DOSE (2X325MG) PO ONE (20:30)
[2016-12-08 20:45] VITALS: BP 208/110
[2016-12-08] MEDS ORDERED: METOPROLOL TART 25 MG TABLET PO ONE (20:45)
[2016-12-08] MEDS ORDERED: ceFAZolin 1GM INJ (J0690) As Ordered ONE (21:57)
[2016-12-08] MEDS ORDERED: NORTRIPTYLINE 25 MG CAP PO ONE (22:00)
[2016-12-08] MEDS ORDERED: PHENobarbital 30 MG TAB PO ONE (22:00)
[2016-12-08] MEDS ORDERED: ATORVASTATIN 20 MG TAB PO ONE (22:00)
[2016-12-08 22:38] VITALS: BP 160/82
[2016-12-09] MEDS ORDERED: SODIUM CHLORIDE 0.9% INJ 10 ML SYR IV SCH (06:00)
--- NOTE | 2016-12-09 17:25 | ECGEPIP ---
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
== END 2016-12-08 22:56 | disposition short-term general hospital (02) ==
LOC: M ED 16:46
DX: I50.9 Heart failure, unspecified (principal); I38 Endocarditis, valve unspecified; I11.9 Hypertensive heart disease without heart failure; I42.2 Other hypertrophic cardiomyopathy; E78.5 Hyperlipidemia, unspecified; M19.90 Unspecified osteoarthritis, unspecified site; F33.9 Major depressive disorder, recurrent, unspecified; Z79.899 Other long term (current) drug therapy; Z88.5 Allergy status to narcotic agent; Z86.79 Personal history of other diseases of the circulatory system; Z87.891 Personal history of nicotine dependence
CPT/HCPCS: 71010; 80048; 80076; 82550; 82553; 83605; 83880; 84443; 85025; 93005; 93041; 94760; 96374; 96375; 99285; J0690; J1940

== ENCOUNTER → 2016-12-20 | Outpatient (REF) ==
[~2016-12-20] MED LIST changes: +ACET1TAB17 PO; +ASPI81TA85 PO; +FERR325T16 PO; +FLUZ1INJ IM; +FOLI1TAB4 PO; +LASI20TA PO; +METO1TAB87 PO; +MILKSUS5 PO; +OXYC1TAB23 PO; +PHEN-312 PO; +POTA1TAB14 PO; +RANI150C PO; +SPIR25TA2 PO; +[UNRECOGNIZED DRUG - CODE] ID
[2016-12-20 14:28] LABS: ANION GAP 7 MEQ/L (8-16); BLOOD UREA NITROGEN 7 MG/DL (7-18); CALCIUM LEVEL 8.9 MG/DL (8.8-10.2); CARBON DIOXIDE LEVEL 29 MEQ/L (21-32); CHLORIDE LEVEL 98 MEQ/L (98-107); GLOMERULAR FILTRATION RATE > 60.0 (>39); GLUCOSE, FASTING 68 MG/DL (83-110); POTASSIUM SERUM 4.8 MEQ/L (3.5-5.1); SODIUM LEVEL 134 MEQ/L (136-145)
== END ==
PROVIDERS: ATTEND Internal Medicine
DX: I50.9 Heart failure, unspecified (principal)

== ENCOUNTER → 2016-12-25 | Outpatient (REF) ==
[2016-12-25 19:21] LABS: ANION GAP 7 MEQ/L (8-16); BLOOD UREA NITROGEN 15 MG/DL (7-18); CALCIUM LEVEL 9.2 MG/DL (8.8-10.2); CARBON DIOXIDE LEVEL 30 MEQ/L (21-32); CHLORIDE LEVEL 98 MEQ/L (98-107); CREATININE FOR GFR 0.73 MG/DL (0.55-1.02); GLOMERULAR FILTRATION RATE > 60.0 (>39); GLUCOSE, FASTING 107 MG/DL (83-110); POTASSIUM SERUM 4.2 MEQ/L (3.5-5.1); SODIUM LEVEL 135 MEQ/L (136-145)
[2016-12-25 19:31] LABS: MEAN CORPUSCULAR HEMOGLOBIN 30.7 pg (27.0-33.0); RED CELL DISTRIBUTION WIDTH 17.2 % (11.5-14.5); WHITE BLOOD COUNT 13.5 10^3/uL (4.0-10.0)
== END ==
PROVIDERS: ATTEND Internal Medicine
DX: I50.9 Heart failure, unspecified (principal); D64.9 Anemia, unspecified; I33.0 Acute and subacute infective endocarditis

== ENCOUNTER → 2016-12-26 | Outpatient (REF) ==
[2016-12-26 20:11] LABS: INR 1.16
[2016-12-26 20:16] LABS: ALBUMIN 2.7 GM/DL (3.2-5.2); ALBUMIN/GLOBULIN RATIO 0.66 (1.00-1.93); ALKALINE PHOSPHATASE 173 U/L (45-117); ALT/SGPT 19 U/L (12-78); AST/SGOT 35 U/L (15-37); BILIRUBIN,DIRECT < 0.1 MG/DL (0.0-0.2); BILIRUBIN,TOTAL 0.3 MG/DL (0.2-1.0); FERRITIN 586 NG/ML (8-252); PERCENT SATURATION 17.2 % (13.2-45.0); TOTAL IRON BINDING CAPACITY 233 UG/DL (250-450); TOTAL PROTEIN 6.8 GM/DL (6.4-8.2)
[2016-12-26 23:43] LABS: REASON FOR REVIEW COMPREHENSIVE REVIEW
[2016-12-26 23:45] LABS: RETIC HEMOGLOBIN EQUIVALENT 37.4 pg (24-36); RETICULOCYTE % 4.6 % (0.5-1.5)
== END ==
PROVIDERS: ATTEND Internal Medicine
DX: D64.9 Anemia, unspecified (principal)

== ENCOUNTER 2016-12-27 10:26 | Outpatient (REF) | payer OTHER ==
[~2016-12-27] VITALS: Ht 162.6 cm; Wt 73.6 kg
[~2016-12-27 10:26] MED LIST changes: -ACET1TAB17 PO; +ACETAMINOPHEN TAB 650MG DOSE (2X325MG) PO SCH; -ASPI81TA85 PO; -FERR325T16 PO; -FLUZ1INJ IM; -FOLI1TAB4 PO; -LASI20TA PO; -METO1TAB87 PO; -MILKSUS5 PO; -OXYC1TAB23 PO; -PHEN-312 PO; -POTA1TAB14 PO; -RANI150C PO; -SPIR25TA2 PO; -[UNRECOGNIZED DRUG - CODE] ID; +diphenhydrAMINE 25 MG CAP PO SCH
[2016-12-27] MEDS ORDERED: SODIUM CHLORIDE 0.9% INJ 10 ML SYR IV PRN (10:30)
[2016-12-27] MEDS ORDERED: OXYC1TAB23 PO (11:27)
[2016-12-27] MEDS ORDERED: SPIR25TA2 PO (11:27)
[2016-12-27] MEDS ORDERED: FLUZ1INJ IM (11:27)
[2016-12-27] MEDS ORDERED: ACET1TAB17 PO (11:27)
[2016-12-27] MEDS ORDERED: [UNRECOGNIZED DRUG - CODE] ID (11:27)
[2016-12-27] MEDS ORDERED: POTA1TAB14 PO (11:27)
[2016-12-27] MEDS ORDERED: ASPI81TA85 PO (11:27)
[2016-12-27] MEDS ORDERED: FERR325T16 PO (11:27)
[2016-12-27] MEDS ORDERED: FOLI1TAB4 PO (11:27)
[2016-12-27] MEDS ORDERED: RANI150C PO (11:27)
[2016-12-27] MEDS ORDERED: CEFA2INJ IV (11:27)
[2016-12-27] MEDS ORDERED: MILKSUS5 PO (11:27)
[2016-12-27] MEDS ORDERED: PHEN-312 PO (11:27)
[2016-12-27] MEDS ORDERED: METO1TAB87 PO (11:27)
[2016-12-27] MEDS ORDERED: LASI20TA PO (11:27)
[2016-12-27] MEDS ORDERED: SODIUM CHLORIDE 0.9% INJ 10 ML SYR IV SCH (18:00)
== END 2016-12-27 16:15 ==
LOC: M INFU 10:26 → EDSTATUS 15:00 → M INFU 16:15
PROVIDERS: ATTEND Internal Medicine
DX: D64.9 Anemia, unspecified (principal); Z88.5 Allergy status to narcotic agent; Z88.8 Allergy status to other drugs, medicaments and biological substances; Z95.2 Presence of prosthetic heart valve; Z87.891 Personal history of nicotine dependence; Z86.14 Personal history of Methicillin resistant Staphylococcus aureus infection; Z79.82 Long term (current) use of aspirin; Z79.899 Other long term (current) drug therapy

== ENCOUNTER → 2016-12-28 | Outpatient (REF) ==
[~2016-12-28] MED LIST changes: +ACET1TAB17 PO; -ACETAMINOPHEN TAB 650MG DOSE (2X325MG) PO SCH; +ASPI81TA85 PO; +FERR325T16 PO; +FLUZ1INJ IM; +FOLI1TAB4 PO; +LASI20TA PO; +METO1TAB87 PO; +MILKSUS5 PO; +OXYC1TAB23 PO; +PHEN-312 PO; +POTA1TAB14 PO; +RANI150C PO; +SPIR25TA2 PO; +[UNRECOGNIZED DRUG - CODE] ID; -diphenhydrAMINE 25 MG CAP PO SCH
[2016-12-28 19:54] LABS: MEAN CORPUSCULAR HEMOGLOBIN 30.4 pg (27.0-33.0); MEAN CORPUSCULAR HGB CONC 32.5 g/dl (32.0-36.5); MEAN CORPUSCULAR VOLUME 93.5 fl (80.0-96.0); RED CELL DISTRIBUTION WIDTH 17.8 % (11.5-14.5); WHITE BLOOD COUNT 10.1 10^3/uL (4.0-10.0)
[2016-12-28 20:12] LABS: ANION GAP 5 MEQ/L (8-16); BLOOD UREA NITROGEN 16 MG/DL (7-18); CALCIUM LEVEL 9.2 MG/DL (8.8-10.2); CARBON DIOXIDE LEVEL 31 MEQ/L (21-32); CHLORIDE LEVEL 98 MEQ/L (98-107); CREATININE FOR GFR 0.79 MG/DL (0.55-1.02); GLOMERULAR FILTRATION RATE > 60.0 (>39); GLUCOSE, FASTING 102 MG/DL (83-110); POTASSIUM SERUM 4.5 MEQ/L (3.5-5.1); SODIUM LEVEL 134 MEQ/L (136-145)
== END ==
PROVIDERS: ATTEND Internal Medicine
DX: D64.9 Anemia, unspecified (principal)

== ENCOUNTER → 2017-01-01 | Outpatient (REF) | payer OTHER ==
[2017-01-01 11:35] LABS: MEAN CORPUSCULAR HGB CONC 32.8 g/dl (32.0-36.5); MEAN CORPUSCULAR VOLUME 94.5 fl (80.0-96.0); RED CELL DISTRIBUTION WIDTH 15.9 % (11.5-14.5); WHITE BLOOD COUNT 7.3 10^3/uL (4.0-10.0)
[2017-01-01 12:20] LABS: ANION GAP 10 MEQ/L (8-16); BLOOD UREA NITROGEN 18 MG/DL (7-18); CALCIUM LEVEL 9.1 MG/DL (8.8-10.2); CARBON DIOXIDE LEVEL 26 MEQ/L (21-32); CHLORIDE LEVEL 99 MEQ/L (98-107); GLOMERULAR FILTRATION RATE > 60.0 (>39); GLUCOSE, FASTING 120 MG/DL (83-110); POTASSIUM SERUM 4.1 MEQ/L (3.5-5.1); SODIUM LEVEL 135 MEQ/L (136-145)
== END ==
PROVIDERS: ATTEND Internal Medicine
DX: D64.9 Anemia, unspecified (principal); I33.0 Acute and subacute infective endocarditis

== ENCOUNTER → 2017-01-10 | Outpatient (CLI) | payer OTHER ==
--- NOTE | 2017-01-10 22:16 | ECHO ---
DATE OF PROCEDURE: 01/10/2017 REFERRING PHYSICIAN: Lincoln Corrigan MD INDICATION: Status post mitral valve replacement. HEIGHT: 63 inches WEIGHT: 155 pounds 2D MEASUREMENTS: Aortic root: 3.3 cm Left atrium: 4.7 cm Ventricular septum: 1.43 cm Posterior wall: 1.38 cm Left ventricle diastole: 3.4 cm LVOT: 2.2 cm Inferior vena cava: 1.7 cm DOPPLER MEASUREMENTS: Very mild aortic regurgitation. No aortic stenosis. Peak aortic valve velocity: 236 cm/s Aortic valve VTI: 35.9 cm Peak aortic valve gradient: 22 mmHg LVOT velocity: 126 cm/s LVOT VTI: 20.8 cm No mitral regurgitation. No mitral stenosis. Mitral A velocity (CW): 168 cm/s Mean mitral valve gradient: 6 mmHg Very mild tricuspid regurgitation. Very mild pulmonic regurgitation. Pulmonary artery systolic pressure estimated to be 43 mmHg by pulmonary acceleration time method. DESCRIPTION: Rhythm was sinus with a wide QRS complex. This is a moderately technically difficult echocardiogram. This is a 2D, M-mode, color flow Doppler and pulse wave Doppler examination that included mitral annular tissue Doppler. CONCLUSIONS: 1. Well-seated and normally functioning mitral valve bioprosthesis with normal appearing cusps. No mitral stenosis or regurgitation. 2. Moderate aortic valve sclerosis of a three-cuspid aortic valve. Very mild aortic regur. No aortic stenosis. 3. Mild concentric left ventricle geometry. Normal region LV wall motion and wall thickening. Normal LV systolic function. Left ventricular ejection fraction (LVEF) of 65% by visual estimate. Unable to assess LV diastolic function in the setting of mitral valve bioprosthesis. 4. No pericardial effusion. 5. Moderate left atrial dilatation. 6. Suggestive of moderate elevation of pulmonary artery systolic pressure. 7. Moderately technically difficult echocardiogram.
== END ==
LOC: M CARPUL 12:20
PROVIDERS: ATTEND Internal Medicine
DX: Z95.2 Presence of prosthetic heart valve (principal)

== ENCOUNTER → 2018-12-11 | Outpatient (REF) | payer OTHER, MEDICARE ==
[~2018-12-11] MED LIST changes: -ACET1TAB17 PO; +ACET1TAB55 PO; -CEFA2INJ IV; +CEFA2INJ3 IV; +FOLI1TAB11 PO; -FOLI1TAB4 PO; -LASI20TA PO; +LASI20TA3 PO; +SPIR-10 PO; -SPIR25TA2 PO
[2018-12-11 16:56] LABS: APPEARANCE, URINE CLEAR (CLEAR); BACTERIA, URINE AUTO NEGATIVE (NEGATIVE); BILIRUBIN, URINE AUTO NEGATIVE (NEGATIVE); BLOOD, URINE BLOOD NEGATIVE (NEGATIVE); COLOR, URINE YELLOW (YELLOW); GLUCOSE, URINE (UA) AUTO NEGATIVE (NEGATIVE); KETONE, URINE AUTO NEGATIVE (NEGATIVE); LEUKOCYTE ESTERASE, URINE AUTO TRACE (NEGATIVE); MUCUS, URINE SMALL (NEGATIVE); NITRITE, URINE AUTO NEGATIVE (NEGATIVE); PROTEIN, URINE AUTO NEGATIVE (NEGATIVE); RBC, URINE AUTO 2 /HPF (0-3); SPECIFIC GRAVITY URINE AUTO 1.014 (1.002-1.035); SQUAMOUS EPITHELIAL CELL UR AU 3 /HPF (0-6); UROBILINOGEN, URINE AUTO 0.2 mg/dL (0.0-2.0); WBC, URINE AUTO 5 /HPF (0-3)
== END ==
LOC: M SFHCCAPE 11:13
PROVIDERS: ATTEND Physician Assistant
DX: Q64.70 Unspecified congenital malformation of bladder and urethra (principal)